=== PATIENT | female | born 1935 | race Caucasian/White ===

== ENCOUNTER 2016-07-23 20:37 | Emergency (ER) | payer MEDICARE, OTHER | END 2016-07-23 21:37 | disposition home or self-care (01) | DX: I10 Essential (primary) hypertension (principal); K21.9 Gastro-esophageal reflux disease without esophagitis; M19.90 Unspecified osteoarthritis, unspecified site; H54.7 Unspecified visual loss; Z79.82 Long term (current) use of aspirin; Z79.899 Other long term (current) drug therapy ==

== ENCOUNTER 2019-06-09 15:47 | Outpatient (CLI) | payer MEDICARE, OTHER | END 2019-06-09 15:48 | disposition short-term general hospital (02) | LOC: EMS 15:47 | PROVIDERS: ATTEND Surgery | DX: M54.5 Low back pain (principal); R10.30 Lower abdominal pain, unspecified; R20.0 Anesthesia of skin; W19.XXXA Unspecified fall, initial encounter; Y92.039 Unspecified place in apartment as the place of occurrence of the external cause | CPT/HCPCS: A0425; A0429; A0888 ==

== ENCOUNTER 2019-07-04 13:34 | Outpatient (CLI) | payer MEDICARE, OTHER ==
--- NOTE | 2019-07-04 19:01 | MRI Report ---
Reason: LOW BACK PAIN, RT HIP PAIN Procedure Date: 07/04/2019 Accession Number: [id number] / [id number] Procedure: MRI - Hip RT W/O CPT Code: Final Report FULL RESULT: EXAM: RIGHT HIP MRI WITHOUT CONTRAST EXAM DATE: 07/04/2019 04:26 PM. CLINICAL HISTORY: Low back pain. Right hip pain. COMPARISON: None. TECHNIQUE: Multiplanar, multisequence T1-weighted and fluid-sensitive, small xntqq-lw-fpqz sequences of the hip and large erwsl-vf-xknf sequences of the pelvis without contrast. Other: None. FINDINGS: Bones: Prominent periarticular cyst formation and reactive marrow edema surrounds the right hip joint. Right Hip: No acetabular retroversion. Lpmi-xf-cntv articulation is demonstrated in the right hip joint. There is severe cartilage loss. A mild right hip effusion is present. Evaluation of the labrum is limited by the large elhxk-tz-rdtq and large slice thickness used on this examination. The ligamentum teres is intact. Other Joints: The visualized lumbar spine, sacroiliac joints, symphysis pubis, and contralateral hip are unremarkable. Musculature: Moderate edema is demonstrated in the bilateral medial abductor muscles. The gluteus medius and minimus tendons are normal. The visualized hamstring tendons are normal. The ischiofemoral space is normal. Pelvic Cavity: The visualized viscera are unremarkable. No lymphadenopathy. No free fluid in the pelvis. Other: The visualized sciatic nerves are unremarkable. No bursitis. The subcutaneous tissues are unremarkable. IMPRESSION: 1. Severe joint space narrowing, cartilage loss, and periarticular cyst formation/edema in the right hip joint. In the absence of large osteophytes, an inflammatory arthropathy is favored as the cause. Subtle avascular necrosis at the right femoral head cannot be excluded. 2. Edema in the bilateral medial abductor muscles could be grade 1 strain or delayed onset muscle soreness. RADIA
--- NOTE | 2019-07-04 19:52 | MRI Report ---
Reason: LOW BACK PAIN, RT HIP PAIN Procedure Date: 07/04/2019 Accession Number: [id number] / [id number] Procedure: MRI - Lumbar Spine W/O CPT Code: Final Report FULL RESULT: EXAM: MRI LUMBAR SPINE WITHOUT CONTRAST EXAM DATE: 07/04/2019 05:06 PM. CLINICAL HISTORY: LOW BACK PAIN, RT HIP PAIN. COMPARISON: None. TECHNIQUE: Multiplanar, multisequence T1-weighted and fluid-sensitive sequences of the lumbar spine from T12 to S1 without contrast. Other: None. FINDINGS: Spinal Canal: The conus terminates at L1. The conus medullaris and cauda equina are unremarkable. Alignment: Straightening of the lumbar spine. Bone Marrow: Five nag-bdu-ltinxqa lumbar vertebral bodies are assumed. Chronic compression L3 vertebral body with a concave deformity of the inferior vertebral body endplate and 30% loss of central vertebral body height. Disk Levels/Facets: T12-L1: Negative for spinal canal stenosis or foraminal stenosis. L1-L2: Ligamentum flavum thickening. Posterior element hypertrophy. Preservation of disk height. Mild facet joint arthrosis. Moderate spinal canal stenosis. Negative for foraminal stenosis. L2-L3: Moderate facet hypertrophic arthropathy. Ligamentum flavum thickening. Apophyseal joint apposition. Moderately severe spinal canal stenosis. Mild bilateral lateral recess stenosis. Mild left and moderate right foraminal stenosis from facet hypertrophy and diffuse disk bulge. L3-L4: Severe disk degeneration. Moderate facet joint arthrosis. Apophyseal joint apposition. Congenital spinal canal narrowing. Ligamentum flavum thickening. Diffuse disk bulge. Severe spinal canal stenosis. The left neural foramen is negative for stenosis. Moderate right foraminal stenosis from facet hypertrophy and foraminal mm disk protrusion. Severe bilateral lateral recess stenosis. L4-L5: Severe disk degeneration. Moderately severe spinal canal stenosis. Posterior element hypertrophy. Ligamentum flavum thickening. Apophyseal joint apposition. Congenital spinal canal narrowing. Moderate bilateral foraminal stenosis from disk degeneration and facet hypertrophy. Diffuse disk bulge. Moderate left and mild right lateral recess stenosis. L5-S1: Mild spinal canal stenosis. Moderate facet joint arthrosis. Ligamentum flavum thickening. Mild right foraminal stenosis. Mild left foraminal stenosis from disk degeneration and 2 mm foraminal protrusion osteophyte complex. Moderate left and mild right lateral recess stenosis. Mild quantity of fluid anterior disk interspace. Musculature: Low lumbar and sacral posterior paraspinal muscle atrophy with fatty replacement. Other: The partially visualized retroperitoneum is unremarkable. Focal ankylosis right sacroiliac joint (image 1 series 601). IMPRESSION: 1. Severe spinal canal stenosis, severe bilateral lateral recess stenosis and moderate right foraminal stenosis L3-L4. 2. Moderately severe spinal canal stenosis, mild bilateral lateral recess stenosis, mild left foraminal stenosis and moderate right foraminal stenosis L2-L3. 3. Moderately severe spinal canal stenosis, moderate left lateral recess stenosis, mild right lateral recess stenosis and moderate bilateral foraminal stenosis L4-L5. 4. Mild central spinal canal stenosis, moderate left lateral recess stenosis, mild right lateral recess stenosis and mild bilateral foraminal stenosis L5-S1. 5. Moderate central spinal canal stenosis L1-L2. 6. Severe disk degeneration L3-S1. 7. Chronic compression L3 vertebral body with concave deformity of the inferior vertebral body endplate and 30% loss of central vertebral body height. Comment: The following findings are so common in adults without low back pain that while we report their presence, they must be interpreted with caution and in the context of the clinical situation. (Reference Ebonyk et al, Spine 2001) Prevalence of findings in patients without low back pain: Disk degeneration (any evidence): 92% Disk desiccation/T2 signal loss: 83% Disk height loss: 56% Disk bulge: 64% Disk protrusion: 32% Annular tear/high intensity zone: 38% RADIA
== END 2019-07-04 13:35 | disposition home or self-care (01) ==
LOC: DI 13:34
PROVIDERS: ATTEND Family Medicine
DX: M25.851 Other specified joint disorders, right hip (principal); R60.0 Localized edema; M25.451 Effusion, right hip; M47.816 Spondylosis without myelopathy or radiculopathy, lumbar region; M47.817 Spondylosis without myelopathy or radiculopathy, lumbosacral region; M51.36 Other intervertebral disc degeneration, lumbar region; M48.061 Spinal stenosis, lumbar region without neurogenic claudication; M51.37 Other intervertebral disc degeneration, lumbosacral region; M48.07 Spinal stenosis, lumbosacral region; M43.8X6 Other specified deforming dorsopathies, lumbar region
CPT/HCPCS: 72148

== ENCOUNTER 2019-07-08 15:03 | Outpatient (CLI) | payer MEDICARE, OTHER | END 2019-07-08 15:04 | disposition critical access hospital (66) | LOC: EMS 15:03 | PROVIDERS: ATTEND Surgery | DX: R53.1 Weakness (principal); R39.89 Other symptoms and signs involving the genitourinary system | CPT/HCPCS: A0425; A0427 ==

== ENCOUNTER 2019-07-24 15:00 | Outpatient (CLI) | payer MEDICARE, OTHER ==
[2019-07-24 18:51] LABS: BASOPHILS % (AUTO) 0.4 %; EOSINOPHILS % (AUTO) 0.5 %; HGB - HEMOGLOBIN 10.4 g/dL (12.0-16.0); LYMPHOCYTES # (AUTO) 1.6 10^3/uL (1.5-3.5); LYMPHOCYTES % (AUTO) 21.4 %; MEAN CORPUSCULAR HEMOGLOBIN 26.4 pg (27.0-31.0); MEAN CORPUSCULAR HGB CONC 29.1 g/dL (32.0-36.0); MEAN CORPUSCULAR VOLUME 90.9 fL (81.0-99.0); MEAN PLATELET VOLUME 8.7 fL (7.9-10.8); MONOCYTES # (AUTO) 0.6 10^3/uL (0.0-1.0); MONOCYTES % (AUTO) 8.3 %; NEUTROPHILS # (AUTO) 5.2 10^3/uL (1.5-6.6); NEUTROPHILS % (AUTO) 68.5 %; PLT - PLATELET COUNT 316 10^3/uL (130-450); RED BLOOD COUNT 3.94 10^6/uL (4.20-5.40); RED CELL DISTRIBUTION WIDTH 17.6 % (12.0-15.0); WHITE BLOOD COUNT 7.6 x10^3/uL (4.8-10.8)
[2019-07-24 19:02] LABS: ALBUMIN 3.1 g/dL (3.2-5.5); ALBUMIN/GLOBULIN RATIO 0.9 (1.0-2.2); BILIRUBIN,TOTAL 0.8 mg/dL (0.2-1.0); CREATININE 0.8 mg/dL (0.4-1.0); TOTAL PROTEIN 6.7 g/dL (6.7-8.2)
== END 2019-07-24 23:59 | disposition home or self-care (01) ==
LOC: LAB.R 15:00
DX: Z01.812 Encounter for preprocedural laboratory examination (principal); E78.5 Hyperlipidemia, unspecified
CPT/HCPCS: 80053; 85025

== ENCOUNTER 2019-07-30 08:00 | Outpatient (CLI) | payer MEDICARE, OTHER ==
[2019-07-30 20:46] LABS: BASOPHILS % (AUTO) 0.8 %; EOSINOPHILS # (AUTO) 0.1 10^3/uL (0.0-0.7); EOSINOPHILS % (AUTO) 1.7 %; HGB - HEMOGLOBIN 10.3 g/dL (12.0-16.0); LYMPHOCYTES # (AUTO) 1.4 10^3/uL (1.5-3.5); MEAN CORPUSCULAR HEMOGLOBIN 27.5 pg (27.0-31.0); MEAN CORPUSCULAR HGB CONC 30.3 g/dL (32.0-36.0); MEAN CORPUSCULAR VOLUME 90.9 fL (81.0-99.0); MONOCYTES # (AUTO) 0.5 10^3/uL (0.0-1.0); MONOCYTES % (AUTO) 10.8 %; NEUTROPHILS # (AUTO) 2.7 10^3/uL (1.5-6.6); NEUTROPHILS % (AUTO) 56.3 %; PLT - PLATELET COUNT 197 10^3/uL (130-450); RED BLOOD COUNT 3.74 10^6/uL (4.20-5.40); WHITE BLOOD COUNT 4.8 x10^3/uL (4.8-10.8)
[2019-07-30 20:50] LABS: CALCIUM 8.6 mg/dL (8.5-10.3); CREATININE 0.5 mg/dL (0.4-1.0)
== END 2019-07-30 23:59 | disposition home or self-care (01) ==
LOC: LAB.R 08:00
DX: I10 Essential (primary) hypertension (principal); J18.9 Pneumonia, unspecified organism
CPT/HCPCS: 80048; 85025

== ENCOUNTER 2019-08-01 15:09 | Outpatient (CLI) | payer MEDICARE, OTHER | END 2019-08-01 15:10 | disposition home or self-care (01) | LOC: RT 15:09 | PROVIDERS: ATTEND Orthopaedic Surgery Orthopaedic Surgery of the Spine | DX: Z01.810 Encounter for preprocedural cardiovascular examination (principal) | CPT/HCPCS: 93005 ==

== ENCOUNTER 2019-08-25 20:15 | Outpatient (CLI) | payer MEDICARE, OTHER ==
[2019-08-25 22:48] LABS: BILIRUBIN,URINE NEGATIVE (NEGATIVE); GLUCOSE, URINE (UA) NEGATIVE (NEGATIVE); KETONES,URINE (UA) NEGATIVE (NEGATIVE); LEUKOCYTE ESTERASE, URINE LARGE (NEGATIVE); NITRITE,URINE POSITIVE (NEGATIVE); OCCULT BLOOD,URINE SMALL (NEGATIVE); PH,URINE 6.5 PH (5.0-7.5); PROTEIN,URINE NEGATIVE (NEGATIVE); UROBILINOGEN,URINE 0.2 (NORMAL) E.U./dL (NORMAL)
[2019-08-25 22:49] LABS: CLARITY,URINE HAZY (CLEAR)
[2019-08-25 22:58] LABS: RBC,URINE 0-5 /HPF (0-5)
[2019-08-25 22:59] LABS: BACTERIA,URINE Moderate /HPF (None Seen); SQUAMOUS EPITHELIAL CELL,UR FEW Squamous (<= Few)
== END 2019-08-25 23:59 | disposition home or self-care (01) ==
LOC: LAB.R 20:15
DX: N39.0 Urinary tract infection, site not specified (principal)
CPT/HCPCS: 81001; 81003; 87077; 87086; 87181

== ENCOUNTER 2019-09-12 06:00 | Outpatient (CLI) | payer MEDICARE, OTHER ==
[2019-09-12 06:57] LABS: BASOPHILS % (AUTO) 0.5 %; EOSINOPHILS % (AUTO) 0.3 %; HGB - HEMOGLOBIN 10.1 g/dL (12.0-16.0); LYMPHOCYTES # (AUTO) 1.2 10^3/uL (1.5-3.5); LYMPHOCYTES % (AUTO) 19.2 %; MEAN CORPUSCULAR HEMOGLOBIN 24.2 pg (27.0-31.0); MEAN CORPUSCULAR HGB CONC 29.4 g/dL (32.0-36.0); MEAN CORPUSCULAR VOLUME 82.5 fL (81.0-99.0); MEAN PLATELET VOLUME 9.2 fL (7.9-10.8); MONOCYTES % (AUTO) 16.4 %; NEUTROPHILS # (AUTO) 3.8 10^3/uL (1.5-6.6); NEUTROPHILS % (AUTO) 63.1 %; PLT - PLATELET COUNT 222 10^3/uL (130-450); RED BLOOD COUNT 4.17 10^6/uL (4.20-5.40); RED CELL DISTRIBUTION WIDTH 16.5 % (12.0-15.0); WHITE BLOOD COUNT 6.1 x10^3/uL (4.8-10.8)
[2019-09-12 07:11] LABS: CALCIUM 9.2 mg/dL (8.5-10.3); CREATININE 0.6 mg/dL (0.4-1.0)
== END 2019-09-12 23:59 | disposition home or self-care (01) ==
LOC: LAB.R 06:00
DX: I10 Essential (primary) hypertension (principal); D64.9 Anemia, unspecified
CPT/HCPCS: 80048; 85025

== ENCOUNTER 2019-09-12 20:18 | Outpatient (CLI) | payer MEDICARE, OTHER | END 2019-09-12 23:59 | disposition critical access hospital (66) | LOC: EMS 20:18 | PROVIDERS: ATTEND Surgery | DX: R05 Cough (principal); R50.9 Fever, unspecified | CPT/HCPCS: A0425; A0429 ==

== ENCOUNTER 2019-09-12 20:43 | Emergency (ER) | payer MEDICARE, OTHER ==
--- NOTE | 2019-09-12 21:22 | ED Physician Documentation ---
History of Present Illness - Stated complaint Stated Complaint: FEVER/INCISION PAIN - Chief complaint Chief Complaint: General - History obtained from History obtained from: Patient, Caregiver (notes from [facility]) - History of Present Illness Timing: Today Pain level now: 0 - Additonal information Additional information: sent from [facility] for "cough, fever, possible infection to surgical incision on back", "had emesis, shakiness, temp., cough/dry, need a UA done" (per transfer forms). Patient tells me she had coughing earlier this evening and one episode of emesis due to the coughing. she says she was not, and is not, nauseas and feels that the emesis was due to coughing. She has no c/o on my HPI. Review of Systems Constitutional: reports: Fever (reportedly had fever; per medic report and information on transfer form, temp was 99.6.). denies: Myalgias Respiratory: reports: Cough. denies: Dyspnea GI: reports: Vomiting. denies: Abdominal Pain, Nausea, Constipation, Diarrhea PD PAST MEDICAL HISTORY - Past Medical History Cardiovascular: Hypertension, High cholesterol, Angina Respiratory: Pneumonia Endocrine/Autoimmune: None GI: GERD : None HEENT: Chronic vision loss Psych: None Musculoskeletal: Osteoarthritis Derm: Other Other Past Medical History: acute resp failure; spinal stenosis; DVT, PE, ESBL; weakness - Past Surgical History Past Surgical History: Yes General: Cholecystectomy Ortho: Spine surgery /CHAIR: Tubal ligation, Hysterectomy - Present Medications Home Medications: Ambulatory Orders Medication Instructions Recorded Confirmed Acetaminophen 500 mg Q8HR PRN 09/12/19 09/12/19 Amox/Clav 875/125 [Augmentin] 1 each PO Q12H #14 tablet 09/12/19 Apixaban [Eliquis] 5 mg BID 09/12/19 09/12/19 Baclofen 0.5 tab BID PRN 09/12/19 09/12/19 Famotidine 20 mg BID 09/12/19 09/12/19 Ipratropium/Albuterol [Duoneb] 3 ml Q6HR PRN 09/12/19 09/12/19 Lidocaine [Lidocaine Pain Relief] 1 patch DAILY 09/12/19 09/12/19 Losartan Potassium 25 mg DAILY 09/12/19 09/12/19 Ondansetron HCl [Zofran] 4 mg Q6HR PRN 09/12/19 09/12/19 Simvastatin [Zocor] 40 mg DAILY 09/12/19 09/12/19 traMADol [Ultram] 50 mg Q6HR PRN 09/12/19 09/12/19 - Allergies Allergies/Adverse Reactions: Allergies Allergy/AdvReac Type Severity Reaction Status Date / Time fexofenadine Allergy Unknown Verified 09/12/19 22:43 - Social History Does the pt smoke?: No Smoking Status: Never smoker Does the pt drink ETOH?: No - Immunizations Immunizations are current?: Yes - POLST Patient has POLST: No PD ED PE NORMAL - Vitals Vital signs reviewed: Yes - General General: Alert and oriented X 3, No acute distress, Well developed/nourished - HEENT HEENT: Moist mucous membranes - Cardiac Cardiac: RRR - Respiratory Respiratory: No respiratory distress, Clear bilaterally - Abdomen Abdomen: Soft, Non tender - Back Back: Other (midline incision (surgical) site is c/d/i without evidence of dehiscence. no fluctuance, no erythema, no discharge) - Derm Derm: Normal color, Warm and dry, No rash - Extremities Extremities: No edema Results - Vitals Vitals: Vital Signs - 24 hr 09/12/19 09/12/19 09/12/19 20:45 21:35 23:04 Temperature 36.9 C Heart Rate 79 67 66 Respiratory 18 16 16 Rate Blood Pressure 131/67 H 128/62 128/57 L O2 Saturation 88 L 100 100 Oxygen O2 Source Nasal cannula Oxygen Flow Rate 2 - Labs Labs: Laboratory Tests 09/12/19 22:15 Urine Color YELLOW Urine Clarity TURBID Urine pH 5.5 Ur Specific [place] >=1.030 H Urine Protein 30 H Urine Glucose (UA) NEGATIVE Urine Ketones NEGATIVE Urine Occult Blood LARGE H Urine Nitrite POSITIVE H Urine Bilirubin NEGATIVE Urine Urobilinogen 0.2 (NORMAL) Ur Leukocyte Esterase MODERATE H Urine RBC 6-10 H Urine WBC >25 H Urine WBC Clumps PRESENT Ur Squamous Epith Cells NONE SEEN Urine Bacteria Many H Ur Microscopic Review INDICATED Urine Culture Comments INDICATED - Rads (name of study) chest xray Radiology: Prelim report reviewed, See rad report PD MEDICAL DECISION MAKING - ED course Complexity details: reviewed old records, reviewed results, re-evaluated patient, considered differential, d/w patient ED course: patient had blood tests performed earlier today (09/12/2019, including CBC and BMP with reassuring results). pulse ox 88% on room air but she has PRN order for oxygen at [facility] and with 2 L/min, her pulse ox corrects to 98%. She is in no respiratory distress in ED. CXR interpreted by radiologist as "new mild left mid and lower lung airspace disease. Could represent pneumonia". Additionally, UA c/w UTI. given dose of augmentin and rx for same. Departure - Departure Disposition: Home, Self Care Clinical Impression: Pneumonia Qualifiers: Pneumonia type: due to unspecified organism Laterality: left Lung location: unspecified part of lung Qualified Code(s): J18.9 - Pneumonia, unspecified organism UTI (urinary tract infection) Qualifiers: Urinary tract infection type: acute cystitis Hematuria presence: with hematuria Qualified Code(s): N30.01 - Acute cystitis with hematuria Condition: Good Instructions: ED Pneumonia Adult, ED UTI Cystitis Female Follow-Up: Angelica Strauss MD [Primary Care Provider] - Prescriptions: Amox/Clav 875/125 [Augmentin] 1 each PO Q12H #14 tablet Discharge Date/Time: 09/12/19 23:56
[2019-09-12 22:23] LABS: BILIRUBIN,URINE NEGATIVE (NEGATIVE); CLARITY,URINE TURBID (CLEAR); GLUCOSE, URINE (UA) NEGATIVE (NEGATIVE); KETONES,URINE (UA) NEGATIVE (NEGATIVE); LEUKOCYTE ESTERASE, URINE MODERATE (NEGATIVE); NITRITE,URINE POSITIVE (NEGATIVE); OCCULT BLOOD,URINE LARGE (NEGATIVE); PH,URINE 5.5 PH (5.0-7.5); PROTEIN,URINE 30 mg/dL (NEGATIVE); UROBILINOGEN,URINE 0.2 (NORMAL) E.U./dL (NORMAL)
[2019-09-12 22:24] LABS: WBC CLUMPS,URINE PRESENT
[2019-09-12 22:25] LABS: BACTERIA,URINE Many /HPF (None Seen); SQUAMOUS EPITHELIAL CELL,UR NONE SEEN (<= Few)
--- NOTE | 2019-09-12 22:34 | XRAY Report ---
Reason: cough Procedure Date: 09/12/2019 Accession Number: [id number] / [id number] Procedure: XR - Chest 1 View X-Ray CPT Code: 04730 Final Report FULL RESULT: EXAM: CHEST RADIOGRAPHY EXAM DATE: 09/12/2019 10:05 PM. CLINICAL HISTORY: Cough. COMPARISON: CHEST 2 VIEW 07/08/2019 4:05 PM. TECHNIQUE: 1 view. FINDINGS: Lungs/Pleura: New mild left mid and lower lung airspace disease, could represent pneumonia. No pleural effusion or pneumothorax. Mediastinum: Within exam limitations, the cardiomediastinal contour is normal. IMPRESSION: New mild left mid and lower lung airspace disease, could represent pneumonia. RADIA
[2019-09-12] MEDS ORDERED: AMOX/CLAV 875 MG/125 MG TABLET PO STA (22:37)
[2019-09-12 23:05] VITALS: BP 128/57
== END 2019-09-12 23:56 | disposition home or self-care (01) ==
LOC: EDBD → EDUNIT# → ED 20:43
DX: J18.9 Pneumonia, unspecified organism (principal); N30.01 Acute cystitis with hematuria; I10 Essential (primary) hypertension
CPT/HCPCS: 71045; 81001; 87086; 87181; 99284; A9270; 81003

== ENCOUNTER 2019-09-13 00:18 | Outpatient (CLI) | payer MEDICARE, OTHER | END 2019-09-13 00:19 | LOC: EMS 00:18 | PROVIDERS: ATTEND Surgery | DX: Z98.890 Other specified postprocedural states (principal); Z74.01 Bed confinement status | CPT/HCPCS: A0425; A0429 ==

== ENCOUNTER 2019-10-11 15:30 | Outpatient (CLI) | payer MEDICARE, OTHER ==
[2019-10-11 15:50] LABS: BASOPHILS % (AUTO) 0.4 %; EOSINOPHILS # (AUTO) 0.1 10^3/uL (0.0-0.7); EOSINOPHILS % (AUTO) 1.4 %; HGB - HEMOGLOBIN 9.1 g/dL (12.0-16.0); LYMPHOCYTES % (AUTO) 41.3 %; MEAN CORPUSCULAR HEMOGLOBIN 23.2 pg (27.0-31.0); MEAN CORPUSCULAR HGB CONC 29.8 g/dL (32.0-36.0); MEAN CORPUSCULAR VOLUME 77.8 fL (81.0-99.0); MEAN PLATELET VOLUME 9.4 fL (7.9-10.8); MONOCYTES # (AUTO) 0.5 10^3/uL (0.0-1.0); MONOCYTES % (AUTO) 9.8 %; NEUTROPHILS # (AUTO) 2.3 10^3/uL (1.5-6.6); NEUTROPHILS % (AUTO) 46.9 %; PLT - PLATELET COUNT 221 10^3/uL (130-450); RED BLOOD COUNT 3.92 10^6/uL (4.20-5.40); RED CELL DISTRIBUTION WIDTH 16.7 % (12.0-15.0); WHITE BLOOD COUNT 4.9 x10^3/uL (4.8-10.8)
[2019-10-11 15:59] LABS: CALCIUM 8.7 mg/dL (8.5-10.3); CREATININE 0.5 mg/dL (0.4-1.0)
== END 2019-10-11 23:59 | disposition home or self-care (01) ==
LOC: LAB.R 15:30
PROVIDERS: ATTEND Family Medicine
DX: M62.81 Muscle weakness (generalized) (principal)
CPT/HCPCS: 80048; 85025

== ENCOUNTER 2019-11-20 16:45 | Outpatient (CLI) | payer MEDICARE, OTHER ==
[2019-11-20 17:24] LABS: BASOPHILS % (AUTO) 0.4 %; EOSINOPHILS # (AUTO) 0.1 10^3/uL (0.0-0.7); EOSINOPHILS % (AUTO) 1.7 %; HGB - HEMOGLOBIN 13.2 g/dL (12.0-16.0); LYMPHOCYTES % (AUTO) 21.6 %; MEAN CORPUSCULAR HEMOGLOBIN 24.6 pg (27.0-31.0); MEAN CORPUSCULAR HGB CONC 29.9 g/dL (32.0-36.0); MEAN CORPUSCULAR VOLUME 82.5 fL (81.0-99.0); MEAN PLATELET VOLUME 9.9 fL (7.9-10.8); MONOCYTES # (AUTO) 0.2 10^3/uL (0.0-1.0); MONOCYTES % (AUTO) 3.6 %; NEUTROPHILS # (AUTO) 3.4 10^3/uL (1.5-6.6); NEUTROPHILS % (AUTO) 72.3 %; PLT - PLATELET COUNT 241 10^3/uL (130-450); RED BLOOD COUNT 5.36 10^6/uL (4.20-5.40); RED CELL DISTRIBUTION WIDTH 22.4 % (12.0-15.0); WHITE BLOOD COUNT 4.7 x10^3/uL (4.8-10.8)
[2019-11-20 17:26] LABS: CALCIUM 9.9 mg/dL (8.5-10.3); CREATININE 0.6 mg/dL (0.4-1.0)
[2019-11-20 17:31] LABS: PLATELET ESTIMATE, MANUAL NORMAL (130-450,000) (NORMAL); PLATELET MORPHOLOGY NORMAL APPEARANCE (NORMAL)
== END 2019-11-20 23:59 | disposition home or self-care (01) ==
LOC: LAB.R 16:45
PROVIDERS: ATTEND Internal Medicine
DX: E78.5 Hyperlipidemia, unspecified (principal); Z91.81 History of falling
CPT/HCPCS: 80048; 85025

== ENCOUNTER 2019-11-28 08:00 | Outpatient (CLI) | payer MEDICARE, OTHER ==
[2019-11-28 17:59] LABS: BASOPHILS % (AUTO) 0.4 %; EOSINOPHILS # (AUTO) 0.1 10^3/uL (0.0-0.7); EOSINOPHILS % (AUTO) 1.8 %; HGB - HEMOGLOBIN 11.8 g/dL (12.0-16.0); LYMPHOCYTES # (AUTO) 1.7 10^3/uL (1.5-3.5); LYMPHOCYTES % (AUTO) 30.6 %; MEAN CORPUSCULAR HEMOGLOBIN 24.3 pg (27.0-31.0); MEAN CORPUSCULAR HGB CONC 29.3 g/dL (32.0-36.0); MEAN CORPUSCULAR VOLUME 83.1 fL (81.0-99.0); MEAN PLATELET VOLUME 10.4 fL (7.9-10.8); MONOCYTES # (AUTO) 0.7 10^3/uL (0.0-1.0); MONOCYTES % (AUTO) 12.3 %; NEUTROPHILS % (AUTO) 54.7 %; PLT - PLATELET COUNT 249 10^3/uL (130-450); RED BLOOD COUNT 4.85 10^6/uL (4.20-5.40); RED CELL DISTRIBUTION WIDTH 21.7 % (12.0-15.0); WHITE BLOOD COUNT 5.4 x10^3/uL (4.8-10.8)
[2019-11-28 18:02] LABS: ALBUMIN 3.4 g/dL (3.2-5.5); BILIRUBIN,TOTAL 0.4 mg/dL (0.2-1.0); CALCIUM 9.1 mg/dL (8.5-10.3); CREATININE 0.5 mg/dL (0.4-1.0); TOTAL PROTEIN 6.8 g/dL (6.7-8.2)
[2019-11-28 18:34] LABS: PLATELET ESTIMATE, MANUAL NORMAL (130-450,000) (NORMAL); PLATELET MORPHOLOGY NORMAL APPEARANCE (NORMAL); RBC MORPHOLOGY (MULTIPLE) 1+ ANISOCYTOSIS (NORMAL)
== END 2019-11-28 23:59 | disposition home or self-care (01) ==
LOC: LAB.R 08:00
PROVIDERS: ATTEND Family Medicine
DX: I10 Essential (primary) hypertension (principal); R79.89 Other specified abnormal findings of blood chemistry; R11.2 Nausea with vomiting, unspecified; I20.9 Angina pectoris, unspecified; R70.0 Elevated erythrocyte sedimentation rate
CPT/HCPCS: 80053; 85025; 85651

== ENCOUNTER 2019-11-30 17:30 | Outpatient (CLI) | payer MEDICARE, OTHER ==
[2019-11-30 18:48] LABS: BILIRUBIN,URINE NEGATIVE (NEGATIVE); GLUCOSE, URINE (UA) NEGATIVE (NEGATIVE); KETONES,URINE (UA) NEGATIVE (NEGATIVE); LEUKOCYTE ESTERASE, URINE NEGATIVE (NEGATIVE); NITRITE,URINE NEGATIVE (NEGATIVE); OCCULT BLOOD,URINE NEGATIVE (NEGATIVE); PROTEIN,URINE NEGATIVE (NEGATIVE); UROBILINOGEN,URINE 0.2 (NORMAL) E.U./dL (NORMAL)
[2019-11-30 18:49] LABS: CLARITY,URINE CLEAR (CLEAR)
== END 2019-11-30 23:59 | disposition home or self-care (01) ==
LOC: LAB.R 17:30
PROVIDERS: ATTEND Family Medicine
DX: E53.8 Deficiency of other specified B group vitamins (principal); R30.0 Dysuria
CPT/HCPCS: 81001; 81003; 82607; 83921; 87086

== ENCOUNTER 2019-12-07 13:40 | Outpatient (CLI) | payer MEDICARE, OTHER ==
[2019-12-07 15:05] LABS: BASOPHILS % (AUTO) 0.5 %; EOSINOPHILS # (AUTO) 0.1 10^3/uL (0.0-0.7); EOSINOPHILS % (AUTO) 1.4 %; HGB - HEMOGLOBIN 12.1 g/dL (12.0-16.0); LYMPHOCYTES # (AUTO) 1.7 10^3/uL (1.5-3.5); LYMPHOCYTES % (AUTO) 29.3 %; MEAN CORPUSCULAR HEMOGLOBIN 25.4 pg (27.0-31.0); MEAN CORPUSCULAR HGB CONC 30.3 g/dL (32.0-36.0); MEAN CORPUSCULAR VOLUME 83.6 fL (81.0-99.0); MEAN PLATELET VOLUME 10.1 fL (7.9-10.8); MONOCYTES # (AUTO) 0.7 10^3/uL (0.0-1.0); MONOCYTES % (AUTO) 11.4 %; NEUTROPHILS # (AUTO) 3.3 10^3/uL (1.5-6.6); NEUTROPHILS % (AUTO) 57.2 %; PLT - PLATELET COUNT 263 10^3/uL (130-450); RED BLOOD COUNT 4.77 10^6/uL (4.20-5.40); RED CELL DISTRIBUTION WIDTH 21.1 % (12.0-15.0); WHITE BLOOD COUNT 5.7 x10^3/uL (4.8-10.8)
[2019-12-07 16:35] LABS: PLATELET ESTIMATE, MANUAL NORMAL (130-450,000) (NORMAL); PLATELET MORPHOLOGY NORMAL APPEARANCE (NORMAL); RBC MORPHOLOGY (MULTIPLE) 2+ ANISOCYTOSIS (NORMAL)
== END 2019-12-07 23:59 | disposition home or self-care (01) ==
LOC: LAB.R 13:40
PROVIDERS: ATTEND Family Medicine
DX: R53.1 Weakness (principal); E78.5 Hyperlipidemia, unspecified
CPT/HCPCS: 82728; 85025

== ENCOUNTER 2020-01-02 12:30 | Outpatient (CLI) | payer MEDICARE, OTHER | END 2020-01-02 12:31 | disposition critical access hospital (66) | LOC: EMS 12:30 | PROVIDERS: ATTEND Surgery | DX: R53.1 Weakness (principal); R41.0 Disorientation, unspecified; R19.5 Other fecal abnormalities | CPT/HCPCS: A0425; A0429 ==

== ENCOUNTER 2020-01-02 12:39 | Inpatient (IN) | payer MEDICARE, OTHER ==
[2020-01-02] MEDS ORDERED: SODIUM CHLORIDE 0.9% 1,000 ML IV STA ×3 (13:02→14:27)
[2020-01-02 13:10] LABS: BASOPHILS # (AUTO) 0.1 10^3/uL (0.0-0.1); BASOPHILS % (AUTO) 0.4 %; EOSINOPHILS # (AUTO) 0.1 10^3/uL (0.0-0.7); EOSINOPHILS % (AUTO) 0.7 %; HGB - HEMOGLOBIN 9.8 g/dL (12.0-16.0); LYMPHOCYTES % (AUTO) 13.6 %; MEAN CORPUSCULAR HEMOGLOBIN 25.2 pg (27.0-31.0); MEAN CORPUSCULAR HGB CONC 32.1 g/dL (32.0-36.0); MEAN CORPUSCULAR VOLUME 78.4 fL (81.0-99.0); MEAN PLATELET VOLUME 10.3 fL (7.9-10.8); MONOCYTES # (AUTO) 1.5 10^3/uL (0.0-1.0); MONOCYTES % (AUTO) 10.6 %; NEUTROPHILS # (AUTO) 10.6 10^3/uL (1.5-6.6); NEUTROPHILS % (AUTO) 73.9 %; PLT - PLATELET COUNT 256 10^3/uL (130-450); RED BLOOD COUNT 3.89 10^6/uL (4.20-5.40); RED CELL DISTRIBUTION WIDTH 20.3 % (12.0-15.0); WHITE BLOOD COUNT 14.4 x10^3/uL (4.8-10.8)
--- NOTE | 2020-01-02 13:14 | ED Physician Documentation ---
History of Present Illness - Stated complaint Stated Complaint: BLOOD IN STOOL - Chief complaint Chief Complaint: Cardiac - History obtained from History obtained from: Patient, EMS - History of Present Illness Timing: How many days ago (3) Pain level max: 0 Pain level now: 0 - Additonal information Additional information: 84-year-old female presents to the emergency department with blood in her stool for the past 3 days. She lives at [facility]. Nothing makes it better or worse. 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 Currently has no leg pain and/or swelling. They recently decreased her Eliquis from 5 mg daily to 2.5 mg daily. No history of blood in the stool before. She is unable to say whether it is bright or dark. She has mild confusion as well. Unknown last colonoscopy Review of Systems Ten Systems: 10 systems reviewed and negative Constitutional: denies: Fever, Chills Nose: denies: Rhinorrhea / runny nose, Congestion GI: reports: Abdominal Pain (pain in lower abd). denies: Vomiting, Diarrhea : denies: Dysuria Skin: denies: Rash Musculoskeletal: denies: Neck pain, Back pain Neurologic: reports: Confused (intermittent,). 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, Hysterectomy - Present Medications Home Medications: Ambulatory Orders Medication Instructions Recorded Confirmed Acetaminophen 500 mg Q8HR PRN 09/12/19 09/12/19 Amox/Clav 875/125 [Augmentin] 1 each PO Q12H #14 tablet 09/12/19 Apixaban [Eliquis] 5 mg BID 09/12/19 09/12/19 Baclofen 0.5 tab BID PRN 09/12/19 09/12/19 Famotidine 20 mg BID 09/12/19 09/12/19 Ipratropium/Albuterol [Duoneb] 3 ml Q6HR PRN 09/12/19 09/12/19 Lidocaine [Lidocaine Pain Relief] 1 patch DAILY 09/12/19 09/12/19 Losartan Potassium 25 mg DAILY 09/12/19 09/12/19 Ondansetron HCl [Zofran] 4 mg Q6HR PRN 09/12/19 09/12/19 Simvastatin [Zocor] 40 mg DAILY 09/12/19 09/12/19 traMADol [Ultram] 50 mg Q6HR PRN 09/12/19 09/12/19 - Allergies Allergies/Adverse Reactions: Allergies Allergy/AdvReac Type Severity Reaction Status Date / Time fexofenadine Allergy Unknown Verified 01/02/20 13:35 - Social History Does the pt smoke?: No Smoking Status: Never smoker Does the pt drink ETOH?: No - Immunizations Immunizations are current?: Yes - POLST Patient has POLST: No PD ED PE NORMAL - Vitals Vital signs reviewed: Yes - General General: Alert and oriented X 3, No acute distress - HEENT HEENT: Atraumatic, PERRL, Moist mucous membranes - Neck Neck: Supple, no meningeal sign, No bony TTP - Cardiac Cardiac: RRR, Strong equal pulses - Respiratory Respiratory: No respiratory distress, Clear bilaterally - Abdomen Abdomen: Soft, Non distended, Other (mild LLQ TTP.) - Derm Derm: Warm and dry - Extremities Extremities: No deformity - Neuro Neuro: Alert and oriented X 3 - Psych Psych: Normal mood, Normal affect Results - Vitals Vitals: Vital Signs - 24 hr 01/02/20 01/02/20 01/02/20 12:45 12:46 13:26 Temperature 36.7 C Heart Rate 76 91 69 Respiratory 18 17 17 Rate Blood Pressure 75/55 L 92/49 L 85/63 L O2 Saturation 99 99 01/02/20 01/02/20 01/02/20 13:30 14:00 14:30 Temperature Heart Rate 71 90 73 Respiratory 18 17 16 Rate Blood Pressure 85/63 L 83/40 L 74/33 L O2 Saturation 97 100 99 01/02/20 01/02/20 14:35 15:01 Temperature Heart Rate 71 75 Respiratory 14 16 Rate Blood Pressure 74/33 L 94/50 L O2 Saturation 99 100 Oxygen O2 Source Room air - Labs Labs: Microbiology 01/02/20 13:10 Occult Blood - Final Stool Laboratory Tests 01/02/20 01/02/20 01/02/20 12:50 12:50 12:50 WBC 14.4 H RBC 3.89 L Hgb 9.8 L Hct 30.5 L MCV 78.4 L MCH 25.2 L MCHC 32.1 RDW 20.3 H Plt Count 256 MPV 10.3 Neut # (Auto) 10.6 H Lymph # (Auto) 2.0 [place] # (Auto) 1.5 H Eos # (Auto) 0.1 Baso # (Auto) 0.1 Absolute Nucleated RBC 0.00 Nucleated RBC % 0.0 Manual Slide Review Indicated Platelet Estimate NORMAL (130-450,000) Platelet Morphology NORMAL APPEARANCE RBC Morph Micro Appear KHALIL JOLLY BODIES PT 28.8 H INR 2.7 H APTT 40.3 H Sodium Potassium Chloride Carbon Dioxide Anion Gap BUN Creatinine Estimated GFR (MDRD) Glucose Lactic Acid Calcium Ferritin Total Bilirubin AST ALT Alkaline Phosphatase Lactate Dehydrogenase Total Protein Albumin Globulin Albumin/Globulin Ratio Lipase Blood Type A NEGATIVE Antibody Screen NEGATIVE 01/02/20 01/02/20 01/02/20 12:50 12:50 12:50 WBC RBC Hgb Hct MCV MCH MCHC RDW Plt Count MPV Neut # (Auto) Lymph # (Auto) [place] # (Auto) Eos # (Auto) Baso # (Auto) Absolute Nucleated RBC Nucleated RBC % Manual Slide Review Platelet Estimate Platelet Morphology RBC Morph Micro Appear PT INR APTT Sodium 132 L Potassium 4.6 Chloride 101 Carbon Dioxide 20 L Anion Gap 11.0 BUN 34 H Creatinine 1.0 Estimated GFR (MDRD) 53 L Glucose 117 H Lactic Acid Calcium 9.2 Ferritin 61.7 Total Bilirubin 2.9 H AST 94 H ALT 29 Alkaline Phosphatase 504 H Lactate Dehydrogenase 186 Total Protein 5.7 L Albumin 2.4 L Globulin 3.3 Albumin/Globulin Ratio 0.7 L Lipase 39 Blood Type Antibody Screen 01/02/20 13:15 WBC RBC Hgb Hct MCV MCH MCHC RDW Plt Count MPV Neut # (Auto) Lymph # (Auto) [place] # (Auto) Eos # (Auto) Baso # (Auto) Absolute Nucleated RBC Nucleated RBC % Manual Slide Review Platelet Estimate Platelet Morphology RBC Morph Micro Appear PT INR APTT Sodium Potassium Chloride Carbon Dioxide Anion Gap BUN Creatinine Estimated GFR (MDRD) Glucose Lactic Acid 1.8 Calcium Ferritin Total Bilirubin AST ALT Alkaline Phosphatase Lactate Dehydrogenase Total Protein Albumin Globulin Albumin/Globulin Ratio Lipase Blood Type Antibody Screen - Rads (name of study) CT abd/pelvis Radiology: Prelim report reviewed, EMP read contemporaneously, See rad report PD MEDICAL DECISION MAKING - ED course Complexity details: reviewed results, re-evaluated patient, considered differential, d/w patient, d/w 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 Hemoglobin is dropped from 12 down to 9. She is on Eliquis. Appears to have diverticulitis on CT scan. Started on Zosyn. Discussed the case with Dr. Mota, surgeon who will consult. Also discussed with Dr. Zamarripa, hospitalist who accepts. This document was made in part using voice recognition software. While efforts are made to proofread this document, sound alike and grammatical errors may occur. Initial hypotension improved with IV fluids Departure - Departure Disposition: 66 [facility] DC/Xfer Clinical Impression: Diverticulitis GI bleed Qualifiers: GI bleed type/associated pathology: unspecified gastrointestinal hemorrhage type Qualified Code(s): K92.2 - Gastrointestinal hemorrhage, unspecified Anemia Qualifiers: Anemia type: unspecified type Qualified Code(s): D64.9 - Anemia, unspecified Condition: Stable Discharge Date/Time: 01/02/20 16:25
[2020-01-02 13:15] LABS: INR 2.7 (0.8-1.2); PT - PROTHROMBIN TIME 28.8 secs (9.9-12.6)
[2020-01-02 13:20] LABS: ALBUMIN 2.4 g/dL (3.2-5.5); ALBUMIN/GLOBULIN RATIO 0.7 (1.0-2.2); BILIRUBIN,TOTAL 2.9 mg/dL (0.2-1.0); CALCIUM 9.2 mg/dL (8.5-10.3); TOTAL PROTEIN 5.7 g/dL (6.7-8.2)
[2020-01-02 13:23] LABS: PARTIAL THROMBOPLASTIN TIME 40.3 secs (24.9-33.3)
[2020-01-02] MEDS ORDERED: IOVERSOL 320 100 ML VIAL IVP ONE ×2 (13:43→14:02)
[2020-01-02 14:37] LABS: PLATELET ESTIMATE, MANUAL NORMAL (130-450,000) (NORMAL); PLATELET MORPHOLOGY NORMAL APPEARANCE (NORMAL)
--- NOTE | 2020-01-02 14:40 | CT Report ---
PROCEDURE: Abdomen/Pelvis W INDICATIONS: Left lower quadrant abdominal pain, rectal bleeding CONTRAST: 100 cc Optiray 320 administered intravenously. No by mouth contrast ministry. TECHNIQUE: After the administration of oral and intravenous contrast, 5 mm thick sections acquired from the diap hragms to the symphysis. 5 mm thick coronal and sagittal reformats were acquired. For radiation dos e reduction, the following was used: automated exposure control, adjustment of mA and/or kV accordin g to patient size. COMPARISON: None. FINDINGS: Image quality: Excellent. ABDOMEN: Lung bases: No suspicious finding in the lung bases. There is interstitial thickening and chronic alicia earing fibrotic change along with mosaic attenuation of the lungs which may represent air trapping. Solid organs: Status post cholecystectomy. Liver and spleen are unremarkable. There is no acute pancr eatic finding. Adrenal glands are within normal limits. No hydronephrosis or other significant abnorm ality of the kidneys. Peritoneum and bowel: There is free fluid adjacent to the terminal ileum and cecum extending medially and inferiorly into the right hemipelvis posterior to the urinary bladder. The ascending colon appea rs abnormally thickened with pericolonic fat stranding and engorged vasa recta. In addition, there ar e numerous threshold enlarged mesenteric lymph nodes in the right lower quadrant draining this region of the colon. The appendix is nondilated without adjacent inflammatory changes, projecting medially on series 3 images 61-69. Nodes and vessels: The threshold enlarged retroperitoneal lymph nodes by CT size criteria. Diffusely atherosclerotic abdominal aorta without aneurysm. IVC unremarkable. PELVIS: Genitourinary: The bladder wall thickness is normal. Status post hysterectomy and presumably oophorec tomies. Miscellaneous: No threshold enlarged pelvic or inguinal lymph node. Bones: No suspicious bony lesions. No vertebral body compression fractures. Severe osteoarthritic changes of the right hip. Moderate osteophytic changes of the left hip. Extensive thoracolumbar poste rior fixation hardware status post wide laminectomies and posterior element grafting. IMPRESSION: Markedly thickened cecum and ascending colon with adjacent inflammatory changes and flui d. Findings presumably represent infectious colitis or potentially diverticulitis. There is no organi zed fluid collection or abscess. Follow-up to both clinical and radiographic resolution is recommende d to help exclude a malignancy which is an additional concern. Colonoscopy would also be recommended unless recently performed to further exclude a malignant process. Reviewed by: Dar Wells MD on 01/02/2020 2:38 PM PDT Approved by: Dar Wells MD on 01/02/2020 2:38 PM PDT Station ID: [id number]
[2020-01-02] MEDS ORDERED: PIPERACILLIN/TAZOBACTAM 3.375 GM in SODIUM CHLORIDE 0.9% MINIBAG 100 ML IV STA (14:50)
[2020-01-02] MEDS ORDERED: ZOLPIDEM 5 MG TABLET PO PRN (15:10)
[2020-01-02] MEDS ORDERED: IPRATROPIUM/ALBUTEROL 3 ML NEB INH PRN (15:19)
[2020-01-02] MEDS ORDERED: ALBUTEROL NEB 2.5 MG/3 ML INH PRN (15:19)
[2020-01-02] MEDS ORDERED: traMADol 50 MG TABLET PO PRN (15:19)
--- NOTE | 2020-01-02 15:20 | HISTORY & PHYSICAL EXAMINATION ---
Chief Complaint - Chief Complaint Chief Complaint: GI bleed History of Present Illness - History of Present Illness HPI Comment/Other: This is a 83-year-old female with a PMH significant for HTN, HLD, GERD, chronic vision loss, angia, osteoarthritis, hx of DVT/PE with eliquis, pulmonary hypertension, who present ER for bloody stool. She lives at [facility]. pt is some confusion and can only provide limited history. Pt report she has had multiple bloody stools. She report she did feel some lower abdominal discomfort. she Denies dizziness or chest pain, fever, chill or shortness of breath. In routine lab test, patient had a hemoglobin 9.8 today patient has 12.1 in the previous admission about one month ago. Patient also has elevated WBC 14.4, total bili 2.9, elevated alkaline phosphatase. CAT scan of abdomen show marketed thickened cecum and ascending colon with adjacent inflammatory changes and fluid. 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 Colonoscopy is recommended further to exclude malignancy process. Surgeon was notified in the ER. Patient has a PLOST which show she is full code. History - Past Medical History Cardiovascular: reports: Hypertension, High cholesterol, Angina Respiratory: reports: Pneumonia Endocrine/Autoimmune: reports: None GI: reports: GERD : reports: None HEENT: reports: Chronic vision loss Psych: reports: None Musculoskeletal: reports: Osteoarthritis Derm: reports: Other MRSA Hx?: No - Past Surgical History General: reports: Cholecystectomy Ortho: reports: Spine surgery /IMPROVEMENT RN: reports: Tubal ligation, Hysterectomy - Family & Social History Family History: Mother: , CVA/TIA, Father: , CVA/TIA Family History Comment/Other: pt report both her parents from stroke. Social History Notes: she denies smoking, alcohol and drug abuse issue - POLST Patient has POLST: No Meds/Allgy - Home Medications Home Medications: Ambulatory Orders Medication Instructions Recorded Confirmed Acetaminophen 500 mg Q8HR PRN 09/12/19 09/12/19 Amox/Clav 875/125 [Augmentin] 1 each PO Q12H #14 tablet 09/12/19 Apixaban [Eliquis] 5 mg BID 09/12/19 09/12/19 Baclofen 0.5 tab BID PRN 09/12/19 09/12/19 Famotidine 20 mg BID 09/12/19 09/12/19 Ipratropium/Albuterol [Duoneb] 3 ml Q6HR PRN 09/12/19 09/12/19 Lidocaine [Lidocaine Pain Relief] 1 patch DAILY 09/12/19 09/12/19 Losartan Potassium 25 mg DAILY 09/12/19 09/12/19 Ondansetron HCl [Zofran] 4 mg Q6HR PRN 09/12/19 09/12/19 Simvastatin [Zocor] 40 mg DAILY 09/12/19 09/12/19 traMADol [Ultram] 50 mg Q6HR PRN 09/12/19 09/12/19 - Allergies Allergies/Adverse Reactions: Allergies Allergy/AdvReac Type Severity Reaction Status Date / Time fexofenadine Allergy Unknown Verified 01/02/20 13:35 Review of Systems - Constitutional Constitutional: denies: Fatigue, Fever, Chills, Weakness, Diaphoresis - Eyes Eyes: denies: Pain, Blurred vision, Spots in vision, Field loss, Vision loss, Dipolpia - Ears, Nose & Throat Ears, Nose & Throat: denies: Ear pain, Hearing aids, Vertigo, Nosebleeds, Mouth lesions, Bleeding gums - Cardiovascular Cariovascular: denies: Irregular heart rate, Palpitations, Chest pain, Syncope, Exertional dyspnea - Respiratory Respiratory: denies: Cough, Sputum production, Wheezing, Hemoptysis, SOB at rest - Gastrointestinal Gastrointestinal: reports: Abdominal pain, Bloody stools. denies: Constipation, Diarrhea, Rectal bleeding, Black stools, Nausea, Vomiting, Coffee grounds emesis - Genitourinary Genitourinary: denies: Dysuria, Urgency, Hematuria, Flank pain - Musculoskeletal Musculoskeletal: denies: Muscle pain, Muscle aches, Muscle weakness - Integumentary Integumentary: denies: Rash, Lesions, Lumps - Neurological Neurological: denies: General weakness, Focal weakness, Headache, Dizziness, Nu mbness, Pre-existing deficit, Seizures, Incoordination, Slurred speech - Psychiatric Psychiatric: denies: Suicidal, Delusions, Hallucinations, Homicidal - Endocrine Endocrine: denies: Polyuria, Polyphagia - Hematologic/Lymphatic Hematologic/Lymphatic: denies: Anemia, Bruising, Blood clots, Lymphadenopathy, Recurrent infections Exam - Vital Signs Vital Signs: Vital Signs x48h Temp Pulse Resp BP Pulse Ox 01/02/20 15:01 75 16 94/50 L 100 01/02/20 14:35 71 14 74/33 L 99 01/02/20 14:30 73 16 74/33 L 99 01/02/20 14:00 90 17 83/40 L 100 01/02/20 13:30 71 18 85/63 L 97 01/02/20 13:26 69 17 85/63 L 01/02/20 12:46 36.7 C 91 17 92/49 L 99 01/02/20 12:45 76 18 75/55 L 99 - Physical Exam General Appearance: positive: No acute distress, Alert. negative: Lethargic Eyes Bilateral: positive: Normal inspection, PERRL, No lid inflammation ENT: positive: ENT inspection nml, Pharynx nml, No signs of dehydration. negative: Purulent nasal drainage, Dry mucous membranes Neck: positive: Nml inspection, Thyroid nml, No JVD, Trachea midline. negative: Thyromegaly, Stiff neck, Tracheal deviation Respiratory: positive: Chest non-tender, No respiratory distress. negative: Wheezes, Rales, Rhonchi Cardiovascular: positive: Regular rate & rhythm, No murmur, No gallop. negative: Tachycardia, Bradycardia, Systolic murmur, Diastolic murmur Peripheral Pulses: positive: 2+ Abdomen: positive: Non-tender, No organomegaly, Nml bowel sounds, No distention. negative: Tenderness, Guarding, Rebound Back: positive: Nml inspection. negative: CVA tenderness (R), CVA tenderness (L) Skin: positive: Color nml, No rash, Warm, Dry. negative: Cyanosis, Diaphoresis, Pallor Extremities: positive: Non-tender, Nml appearance. negative: Calf tenderness, Alireza's sign/cords Neurologic/Psychiatric: positive: Sensation nml. negative: Weakness, Sensory loss, Facial droop, Slurred/abnml speech, Depressed mood/affect Sepsis Event Note (H) - Evaluation Current Stage of Sepsis: Sepsis Possible source of Sepsis: positive: GI tract/intra-abdominal - Sepsis Criteria Sepsis Criteria: MAP less than 65 mmHg Conclusion/Plan - Problem List (1) GI bleed Conclusion/Plan: Patient report having several times of the bleeding stool. Hemoglobin is 9.8 on today and a 12.1 about a 1 month ago. CAT scan of abdomen review coliti s/diverticulitis, Colonoscopy is recommended to exclude malignancy. Consult with GI surgeon, n.p.o. midnight, H&H to monitor patient hemoglobin. Hold home medication Eliquis. Patient is likely has a low GI bleeding, Possible from infection Qualifiers: GI bleed type/associated pathology: unspecified gastrointestinal hemorrhage type Qualified Code(s): K92.2 - Gastrointestinal hemorrhage, unspecified (2) Sepsis Conclusion/Plan: Patient initially blood pressure only has 7555. After she had 2 L of normal saline in the ER her blood pressure up to 94 systolic. Now patient has acute infection colitis/diverticulitis. Patient also has elevated WBC. Patient has no fever. patient has likely sepsis. but Patient has a history slightly low blood pressure. ER started on Zosyn, will continue. Continue intravenous of IV fluids. Patient also have history severe pulmonary hypertension and right side heart failure. We also will do echo to monitor patient and precaution of Fluids overloaded.Continue vital signs monitor and satellite project site monitor (3) Diverticulitis Conclusion/Plan: Calcium scan indicated patient has colitis/diverticulitis, Continue on Zosyn And intravenous IV fluids, pain control. (4) Anemia Conclusion/Plan: Patient has a hemoglobin 9.8, she had a 12.1 a month ago, it is likely from patient has active blood loss from GI bleeding. We will continue H and H to monitor patient hemoglobin. Patient MCV 78, we will do anemia study, and start with iron pill (5) Elevated liver enzymes Conclusion/Plan: Patient has elevated total bili and elevated alkaline phosphatase.Unknown etiology. We will order ultrasound for the liver. Continue laboratory monitoring (6) Hypertension Conclusion/Plan: Patient has history of hypertension but right now patient is a hypotension. We will hold patient home blood pressure meds, continue vital signs monitor (7) Pulmonary hypertension Conclusion/Plan: Patient has a history of moderate to severe pulmonary hypertension with right- sided heart failure. Now patient has hypotension,We will precaution for patient intravenous IV fluids. Hold ECHO to monitor patient - Lab Results Fish Bones: 01/02/20 12:50 01/02/20 12:50 Core Measures - Anticipated LOS I expect patient to be DC'd or transferred within 96 hours.: Yes - DVT/VTE - Prophylaxis VTE/DVT Device ordered at admit?: Yes VTE/DVT Prophylaxis med ordered at admit?: Yes
[2020-01-02] MEDS ORDERED: SODIUM CHLORIDE 0.9% 1,000 ML IV SCH ×2 (16:00→16:14)
[2020-01-02 16:17] LABS: ABSOLUTE RETICS # AUTO 0.06 10^6/uL (0.020-0.110); RED BLOOD COUNT 3.85 10^6/uL (4.20-5.40)
[2020-01-02 16:48] LABS: FERRITIN 61.7 ng/mL (11.0-306.8)
[2020-01-02] MEDS ORDERED: FERROUS SULFATE 325 MG TABLET PO SCH (17:00)
[2020-01-02 17:12] LABS: % IRON SATURATION 14 % (20-50); IRON 33 ug/dL (28-170); TOTAL IRON BINDING CAPACITY 241 ug/dL (250-450); TRANSFERRIN 172 mg/dL (192-382)
--- NOTE | 2020-01-02 17:23 | PHARMACY PROGRESS NOTE ---
- Best Possible Medication History Admit Date and Time: 01/02/20 1510 Processed by: Pharmacy Medication History completed: Yes Patient Interview: Pt unable to participate Secondary Source(s): Pharmacy records, Insurance records (HOME MEDICATIONS MAR FROM [facility] USED FOR [employer] As the person ultimately responsible for medication therapy, providers are able to order a medication from an existing home medication list in [facility] via the "Reconcile Routine" prior to Confirmation of that medication by system support technician. Such practice is discouraged except when the physician, in their clinical judgment, deems that a medical need exists for a medication without regard to previous use.
[2020-01-02] MEDS: SODIUM CHLORIDE FLUSH 0.9% 10 ML SYRINGE IVP SCH (18:38)
[2020-01-02] MEDS: PANTOPRAZOLE 40 MG VIAL IVP SCH (18:50)
[2020-01-02] MEDS ORDERED: SODIUM CHLORIDE 0.9% 1,000 ML IV ONE (19:27)
[2020-01-02 19:58] LABS: HGB - HEMOGLOBIN 8.6 g/dL (12.0-16.0)
[2020-01-02] MEDS ORDERED: PEG 3350/NA SULF,BICARB,CL/KCL 4,000 ML BOTTLE PO ONE (20:44)
--- NOTE | 2020-01-02 20:44 | CONSULTATION NOTE ---
Referring Provider Name of Referring Provider:: Hospitalist Consult Date: 01/02/20 Chief Complaint - Chief Complaint Chief Complaint: Gastrointestinal bleed History of Present Illness - Admitted From Admitted From:: Facility - History Obtained From Records Reviewed: EMR History obtained from: Patient & EMR Exam Limitations: Dementia - History of Present Illness HPI Comment/Other: 84 yo female with MMP on systemic AC admitted for GIB with hematochezia. 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 Social History Notes: she denies smoking, alcohol and drug abuse issue - POLST Patient has POLST: No Meds/Allgy - Home Medications Home Medications: Ambulatory Orders Medication Instructions Recorded Confirmed Acetaminophen 500 mg Q8HR PRN 09/12/19 01/02/20 Apixaban [Eliquis] 5 mg PO BID 09/12/19 01/02/20 Famotidine 20 mg PO BID 09/12/19 01/02/20 Losartan Potassium 25 mg PO DAILY 09/12/19 01/02/20 Ondansetron HCl [Zofran] 4 mg PO Q6HR PRN 09/12/19 01/02/20 Simvastatin [Zocor] 40 mg PO DAILY 09/12/19 01/02/20 traMADol [Ultram] 50 mg PO Q6HR PRN 09/12/19 01/02/20 Albuterol Sulf [Ventolin Hfa 2 puffs PO Q4H PRN 01/02/20 01/02/20 Inhaler] Baclofen 5 mg PO BID 01/02/20 01/02/20 Ferrous Gluconate 240 mg PO DAILY 01/02/20 01/02/20 L.acid/L.casei/B.bif/B.magan/Fos 1 cap PO BID 01/02/20 01/02/20 [Probiotic Blend Capsule] Meclizine [Antivert] 12.5 mg PO BID 01/02/20 01/02/20 Senna [Senokot] 17.2 mg PO DAILY 01/02/20 01/02/20 carvediloL [Coreg] 3.125 mg PO DAILY 01/02/20 01/02/20 - Allergies Allergies/Adverse Reactions: Allergies Allergy/AdvReac Type Severity Reaction Status Date / Time fexofenadine Allergy Unknown Verified 01/02/20 13:35 Exam - Vital Signs Vital Signs: Vital Signs x48h Temp Pulse Pulse Resp BP BP Pulse Ox 01/02/20 19:15 65 18 72/39 L 98 01/02/20 16:49 36.3 C L 76 18 107/40 L 97 01/02/20 16:11 65 15 94/45 L 98 01/02/20 15:39 74 16 93/47 L 99 01/02/20 15:01 75 16 94/50 L 100 01/02/20 14:35 71 14 74/33 L 99 01/02/20 14:30 73 16 74/33 L 99 01/02/20 14:00 90 17 83/40 L 100 01/02/20 13:30 71 18 85/63 L 97 01/02/20 13:26 69 17 85/63 L 01/02/20 12:46 36.7 C 91 17 92/49 L 99 01/02/20 12:45 76 18 75/55 L 99 - Physical Exam General Appearance: positive: Anxious Eyes Bilateral: positive: Normal inspection, PERRL, EOMI ENT: positive: ENT inspection nml Neck: positive: Nml inspection Respiratory: positive: Chest non-tender, Breath sounds nml Cardiovascular: positive: Regular rate & rhythm Abdomen: positive: No distention, Tenderness, Other (Abdomen soft, mildly tender to palpation, no rebound no guarding. Patient with no generalized peritoneal signs.) Neurologic/Psychiatric: positive: Disoriented to place, Disoriented to time. negative: Disoriented to person Conclusion and Plan - Lab Results Microbiology Results 01/02/20 13:10 Stool Occult Blood - Final Laboratory Results 01/02/20 19:48: Hgb 8.6 L, Hct 27.5 L 01/02/20 13:15: Lactic Acid 1.8 01/02/20 12:50: Lactate Dehydrogenase 186 01/02/20 12:50: Ferritin 61.7, Vitamin B12 2143 H 01/02/20 12:50: Iron 33, TIBC 241 L, % Saturation 14 L, Transferrin 172 L 01/02/20 12:50: RBC 3.85 L, Reticulocyte % (Auto) 1.57, Absolute Retic 0.060 01/02/20 12:50: Sodium 132 L, Potassium 4.6, Chloride 101, Carbon Dioxide 20 L, Anion Gap 11.0, BUN 34 H, Creatinine 1.0, Estimated GFR (MDRD) 53 L, Glucose 117 H, Calcium 9.2, Total Bilirubin 2.9 H, AST 94 H, ALT 29, Alkaline Phosphatase 504 H, Total Protein 5.7 L, Albumin 2.4 L, Globulin 3.3, Albumin/Globulin Ratio 0.7 L, Lipase 39 01/02/20 12:50: PT 28.8 H, INR 2.7 H, APTT 40.3 H 01/02/20 12:50: WBC 14.4 H, RBC 3.89 L, Hgb 9.8 L, Hct 30.5 L, MCV 78.4 L, MCH 25.2 L, MCHC 32.1, RDW 20.3 H, Plt Count 256, MPV 10.3, Neut # (Auto) 10.6 H, Lymph # (Auto) 2.0, Warren # (Auto) 1.5 H, Eos # (Auto) 0.1, Baso # (Auto) 0.1, Absolute Nucleated RBC 0.00, Nucleated RBC % 0.0, Manual Slide Review Indicated, Platelet Estimate NORMAL (130-450,000), Platelet Morphology NORMAL APPEARANCE, RBC Morph Micro Appear KHALIL JOLLY BODIES 01/02/20 12:50: Blood Type A NEGATIVE, Antibody Screen NEGATIVE - Diagnosis Diagnosis: 1. GIB bleed. 2. Right sided colitis. 3. Multiply comorbid states - Plan Plan: 1. Admit to inpatient, with hospitalist service 2. Trend H/H and transfuse appropriately 3. Hold AC and correct coagulopathy 4. Plan upper endoscopy as well as lower colonoscopy; proceed with bowel prep 5. Appropriately aggressive resuscitation 6. Stool studies 7. Bowel rest 8. PPI infusion and consider Carafate pending results
[2020-01-02] MEDS: SODIUM CHLORIDE 0.9% 1,000 ML IV SCH (22:58)
[2020-01-02] MEDS: PIPERACILLIN/TAZOBACTAM 3.375 GM in SODIUM CHLORIDE 0.9% MINIBAG 100 ML IV SCH (22:59)
[2020-01-03] MEDS: SODIUM/POTASSIUM/MAG SULFATES 354 ML PREP KIT PO SCH ×4 (00:27→09:16)
[2020-01-03] MEDS: SODIUM CHLORIDE FLUSH 0.9% 10 ML SYRINGE IVP SCH ×3 (01:27→16:42)
[2020-01-03] MEDS: MIN OIL/DIMETHICON/COCONUT OIL 92 GM TUBE TOP PRN (05:07)
[2020-01-03 05:33] LABS: BASOPHILS % (AUTO) 0.3 %; EOSINOPHILS # (AUTO) 0.1 10^3/uL (0.0-0.7); EOSINOPHILS % (AUTO) 0.7 %; HGB - HEMOGLOBIN 8.9 g/dL (12.0-16.0); LYMPHOCYTES # (AUTO) 1.9 10^3/uL (1.5-3.5); LYMPHOCYTES % (AUTO) 16.7 %; MEAN CORPUSCULAR HEMOGLOBIN 24.7 pg (27.0-31.0); MEAN CORPUSCULAR VOLUME 79.5 fL (81.0-99.0); MONOCYTES # (AUTO) 1.3 10^3/uL (0.0-1.0); MONOCYTES % (AUTO) 11.4 %; NEUTROPHILS # (AUTO) 8.2 10^3/uL (1.5-6.6); NEUTROPHILS % (AUTO) 70.2 %; PLT - PLATELET COUNT 197 10^3/uL (130-450); RED BLOOD COUNT 3.61 10^6/uL (4.20-5.40); RED CELL DISTRIBUTION WIDTH 20.6 % (12.0-15.0); WHITE BLOOD COUNT 11.6 x10^3/uL (4.8-10.8)
[2020-01-03 05:43] LABS: INR 1.9 (0.8-1.2); PT - PROTHROMBIN TIME 21.3 secs (9.9-12.6)
[2020-01-03 05:46] LABS: ALBUMIN 2.1 g/dL (3.2-5.5); ALBUMIN/GLOBULIN RATIO 0.7 (1.0-2.2); BILIRUBIN,TOTAL 2.2 mg/dL (0.2-1.0); CALCIUM 8.3 mg/dL (8.5-10.3); CREATININE 0.9 mg/dL (0.4-1.0); MAGNESIUM 2.2 mg/dL (1.7-2.8); PHOSPHORUS 2.9 mg/dL (2.5-4.6); TOTAL PROTEIN 5.1 g/dL (6.7-8.2)
[2020-01-03] MEDS: SODIUM CHLORIDE FLUSH 0.9% 10 ML SYRINGE IVP PRN (05:54)
[2020-01-03] MEDS: PANTOPRAZOLE 40 MG VIAL IVP SCH (05:54)
[2020-01-03] MEDS: PIPERACILLIN/TAZOBACTAM 3.375 GM in SODIUM CHLORIDE 0.9% MINIBAG 100 ML IV SCH ×3 (05:55→22:46)
[2020-01-03 06:41] LABS: RBC MORPHOLOGY (MULTIPLE) 3+ ROULEAUX (NORMAL)
[2020-01-03 06:42] LABS: PLATELET ESTIMATE, MANUAL NORMAL (130-450,000) (NORMAL); PLATELET MORPHOLOGY NORMAL APPEARANCE (NORMAL)
[2020-01-03] MEDS: SODIUM CHLORIDE 0.9% 1,000 ML IV SCH (08:06)
[2020-01-03] MEDS: FERROUS SULFATE 325 MG TABLET PO SCH (09:15)
[2020-01-03] MEDS: ONDANSETRON 4 MG/2 ML VIAL IVP PRN (10:03)
[2020-01-03 11:11] LABS: BILIRUBIN,URINE NEGATIVE (NEGATIVE); GLUCOSE, URINE (UA) NEGATIVE (NEGATIVE); KETONES,URINE (UA) NEGATIVE (NEGATIVE); LEUKOCYTE ESTERASE, URINE MODERATE (NEGATIVE); NITRITE,URINE NEGATIVE (NEGATIVE); OCCULT BLOOD,URINE TRACE-INTA (NEGATIVE); PROTEIN,URINE NEGATIVE (NEGATIVE); UROBILINOGEN,URINE 0.2 (NORMAL) E.U./dL (NORMAL)
[2020-01-03 11:12] LABS: CLARITY,URINE CLOUDY (CLEAR)
[2020-01-03 11:25] LABS: BACTERIA,URINE Many /HPF (None Seen); RBC,URINE 0-5 /HPF (0-5); SQUAMOUS EPITHELIAL CELL,UR FEW Squamous (<= Few); WBC CLUMPS,URINE PRESENT
[2020-01-03 11:26] LABS: CASTS, URINE >50 Granular Casts /LPF
[2020-01-03 12:09] LABS: HGB - HEMOGLOBIN 9.5 g/dL (12.0-16.0)
--- NOTE | 2020-01-03 17:00 | PROVIDER PROGRESS NOTE ---
Assessment/Plan - Problem List (1) GI bleed Qualifiers: GI bleed type/associated pathology: unspecified gastrointestinal hemorrhage type Qualified Code(s): K92.2 - Gastrointestinal hemorrhage, unspecified Assessment/Plan: She still had some blood in her bowel movements, also seen because she got a prep for colonoscopy. Continue to follow her CBC daily Transfuse if hemoglobin under 7. Await general surgery input regarding timing of colonoscopy. (2) Anemia Qualifiers: Anemia type: unspecified type Qualified Code(s): D64.9 - Anemia, unspecified Assessment/Plan: [place]ob[place] of 9 has decreased to 8. Continue to follow CBC daily. Transfuse if hemoglobin under 7. (3) Colitis Assessment/Plan: Colitis was seen on imaging. She is on empiric IV Zosyn. Continue with bowel rest, iv hydration. Pain meds if needed. (4) Sepsis Assessment/Plan: Tachycardia and hypotension have improved. WBC 14>> 11. Continue with treatment for source which appears to be colitis. Blood cultures pending (5) UTI (urinary tract infection) Assessment/Plan: The urinalysis did show white cells and bacteria. This could be the reason for her intermittent confusion and weakness Her empiric IV Zosyn also covers UTI bacteria. Continue IV hydration. (6) Confusion Assessment/Plan: Possibly related to her UTI or tramadol use. She did not get a narcotics today for abdominal pain that she had yesterday. We will stop the tramadol order. Continue with IV hydration. Continue IV antibiotics for colitis and UTI treatment. (7) Anticoagulation adequate Assessment/Plan: Patient has a history of DVT and PE. She is on Coumadin. Follow INR daily, target is 2-3 (8) Elevated liver enzymes Assessment/Plan: Patient has elevated total bili and elevated alkaline phosphatase. Unknown etiology. CT abdomen did not report any specific problems with the gallbladder or biliary duct. Cancel ultrasound of gallbladder due to abdominal pain. Follow CMP daily (9) Hx of essential hypertension Assessment/Plan: Patient has history of hypertension but right now patient is hypotensive. 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 Now patient has systemic hypotension. We will be germaine with intravenous IV fluids. Echo oin Mon re pulm pressure (we do not have this available over the weekend, today is Sunday) - Current Meds Current Meds: Current Medications Generic Name Dose Route Start Last Admin Trade Name Freq PRN Reason Stop Dose Admin Ferrous Sulfate 325 mg 01/03/20 09:00 01/03/20 09:15 Feosol PO 325 mg DAILY LUIS M Administration Piperacillin Sod/Tazobactam 100 mls @ 25 mls/hr 01/02/20 23:00 01/03/20 14:13 Sod 3.375 gm/ Sodium Chloride IV 25 mls/hr Q8H LUIS M Administration Sodium Chloride 1,000 mls @ 100 mls/hr 01/02/20 22:00 01/03/20 13:42 Normal Saline 0.9% IV 100 mls/hr .Q10H LUIS M Infusion Mineral Oil 1 applic 01/03/20 04:34 01/03/20 05:07 Cavilon TOP 1 applic PRN PRN Administration Skin Care Ondansetron HCl 4 mg 01/02/20 15:10 01/03/20 10:03 Zofran Inj IVP 4 mg Q6HR PRN Administration Nausea / Vomiting Pantoprazole Sodium 40 mg 01/02/20 16:00 01/03/20 05:54 Protonix IVP 40 mg QDAC LUIS M Administration Sodium Chloride 10 ml 01/02/20 15:10 01/03/20 05:54 Normal Saline Flush 0.9% IVP 10 ml PRN PRN Administration NEEDED PER PROVIDER ORDERS Sodium Chloride 10 ml 01/02/20 17:00 01/03/20 16:42 Normal Saline Flush 0.9% IVP Not Given 0100,0900,1700 LUIS M - Lab Result Fish Bone Diagrams: 01/03/20 11:55 01/03/20 05:00 - Additional Planning My Orders: My Active Orders 01/03/20 10:32 Straight Catheter Insertion [RC] ONCE 01/05/20 08:00 Echo Transthoracic Complete [ECHO] Routine Subjective - Subjective Patient Reports: Resting Comfortably Nursing Reports: Confused, Other (He oscillates from being weak and confused to being alert and awake and able to feed herself) Objective Vital Signs: Vital Signs - 24 hr 01/02/20 01/02/20 01/03/20 19:15 21:15 00:00 Temperature 36.2 C L 36.6 C Heart Rate Heart Rate [ 65 76 78 Brachial] Heart Rate [ Monitoring electrodes] Respiratory 18 16 16 Rate Blood Pressure 72/39 L 93/41 L 91/37 L [Left Brachial artery] Blood Pressure [Right Brachial artery] Blood Pressure [Right] O2 Saturation 98 95 94 01/03/20 01/03/20 01/03/20 00:28 01:40 02:45 Temperature 36.5 C Heart Rate Heart Rate [ 92 106 H 86 Brachial] Heart Rate [ Monitoring electrodes] Respiratory 18 18 Rate Blood Pressure [Left Brachial artery] Blood Pressure [Right Brachial artery] Blood Pressure 88/47 L 86/39 L 100/47 L [Right] O2 Saturation 100 01/03/20 01/03/20 01/03/20 03:33 07:30 08:00 Temperature 36.5 C 35.6 C L Heart Rate 82 Heart Rate [ 86 72 Brachial] Heart Rate [ Monitoring electrodes] Respiratory 16 16 14 Rate Blood Pressure [Left Brachial artery] Blood Pressure 117/77 92/39 L [Right Brachial artery] Blood Pressure [Right] O2 Saturation 100 92 01/03/20 15:52 Temperature 36.5 C Heart Rate Heart Rate [ Brachial] Heart Rate [ 86 Monitoring electrodes] Respiratory 16 Rate Blood Pressure [Left Brachial artery] Blood Pressure 105/56 L [Right Brachial artery] Blood Pressure [Right] O2 Saturation 95 Oxygen O2 Source Room air I&O (Last 24 Hrs): Intake and Output Totals x24h 01/01/20 01/02/20 01/03/20 23:59 23:59 23:59 Intake Total 4011.125 4614.333 Output Total 800 Balance 4011.125 3814.333 General: Other (currently sleeping) HEENT: Mucous membr. moist/pink, Other (Multiple scaly red lesions of the face) Neck: Supple Neuro: Disoriented, Non Focal, Other (Confusion and intermittent weakness) Cardiovascular: Regular rate, No murmurs Respiratory: No respiratory distress, Breath sounds nml Abdomen: Soft, No tenderness Extremities: No edema - Results Results: Laboratory Results WBC 11.6 x10^3/uL (4.8-10.8) H 01/03/20 05:00 RBC 3.61 10^6/uL (4.20-5.40) L 01/03/20 05:00 Hgb 9.5 g/dL (12.0-16.0) L 01/03/20 11:55 Hct 29.5 % (37.0-47.0) L 01/03/20 11:55 MCV 79.5 fL (81.0-99.0) L 01/03/20 05:00 MCH 24.7 pg (27.0-31.0) L 01/03/20 05:00 MCHC 31.0 g/dL (32.0-36.0) L 01/03/20 05:00 RDW 20.6 % (12.0-15.0) H 01/03/20 05:00 Plt Count 197 10^3/uL (130-450) 01/03/20 05:00 MPV 10.0 fL (7.9-10.8) 01/03/20 05:00 Reticulocyte % (Auto) 1.57 % (0.5-2.3) 01/02/20 12:50 Neut # (Auto) 8.2 10^3/uL (1.5-6.6) H 01/03/20 05:00 Lymph # (Auto) 1.9 10^3/uL (1.5-3.5) 01/03/20 05:00 [place] # (Auto) 1.3 10^3/uL (0.0-1.0) H 01/03/20 05:00 Eos # (Auto) 0.1 10^3/uL (0.0-0.7) 01/03/20 05:00 Baso # (Auto) 0.0 10^3/uL (0.0-0.1) 01/03/20 05:00 Absolute Nucleated RBC 0.00 x10^3/uL 01/03/20 05:00 Nucleated RBC % 0.0 /100WBC 01/03/20 05:00 Manual Slide Review Indicated 01/03/20 05:00 WBC Morphology NORMAL APPEARANCE (NORMAL) 01/03/20 05:00 Platelet Estimate NORMAL (130-450,000) (NORMAL) 01/03/20 05:00 Platelet Morphology NORMAL APPEARANCE (NORMAL) 01/03/20 05:00 RBC Morph Micro Appear 3+ [place] (NORMAL) 01/03/20 05:00 Absolute Retic 0.060 10^6/uL (0.020-0.110) 01/02/20 12:50 PT 21.3 secs (9.9-12.6) H 01/03/20 05:00 INR 1.9 (0.8-1.2) H 01/03/20 05:00 APTT 40.3 secs (24.9-33.3) H 01/02/20 12:50 Sodium 136 mmol/L (135-145) 01/03/20 05:00 Potassium 4.4 mmol/L (3.5-5.0) 01/03/20 05:00 Chloride 111 mmol/L (101-111) 01/03/20 05:00 Carbon Dioxide 17 mmol/L (21-32) L 01/03/20 05:00 Anion Gap 8.0 (6-13) 01/03/20 05:00 BUN 29 mg/dL (6-20) H 01/03/20 05:00 Creatinine 0.9 mg/dL (0.4-1.0) 01/03/20 05:00 Estimated GFR (MDRD) 60 (>89) L 01/03/20 05:00 Glucose 90 mg/dL (70-100) 01/03/20 05:00 Lactic Acid 1.8 mmol/L (0.5-2.2) 01/02/20 13:15 Calcium 8.3 mg/dL (8.5-10.3) L 01/03/20 05:00 Phosphorus 2.9 mg/dL (2.5-4.6) 01/03/20 05:00 Magnesium 2.2 mg/dL (1.7-2.8) 01/03/20 05:00 Iron 33 ug/dL (28-170) 01/02/20 12:50 TIBC 241 ug/dL (250-450) L 01/02/20 12:50 % Saturation 14 % (20-50) L 01/02/20 12:50 Transferrin 172 mg/dL (192-382) L 01/02/20 12:50 Ferritin 61.7 ng/mL (11.0-306.8) 01/02/20 12:50 Total Bilirubin 2.2 mg/dL (0.2-1.0) H 01/03/20 05:00 AST 83 IU/L (10-42) H 01/03/20 05:00 ALT 29 IU/L (10-60) 01/03/20 05:00 Alkaline Phosphatase 501 IU/L (42-121) H 01/03/20 05:00 Lactate Dehydrogenase 186 IU/L (91-225) 01/02/20 12:50 Total Protein 5.1 g/dL (6.7-8.2) L 01/03/20 05:00 Albumin 2.1 g/dL (3.2-5.5) L 01/03/20 05:00 Globulin 3.0 g/dL (2.1-4.2) 01/03/20 05:00 Albumin/Globulin Ratio 0.7 (1.0-2.2) L 01/03/20 05:00 Lipase 39 U/L (22-51) 01/02/20 12:50 Vitamin B12 2143 pg/mL (180-914) H 01/02/20 12:50 Urine Color YELLOW 01/03/20 11:05 Urine Clarity CLOUDY (CLEAR) 01/03/20 11:05 Urine pH 5.0 PH (5.0-7.5) 01/03/20 11:05 Ur Specific [place] 1.020 (1.002-1.030) 01/03/20 11:05 Urine Protein NEGATIVE mg/dL (NEGATIVE) 01/03/20 11:05 Urine Glucose (UA) NEGATIVE mg/dL (NEGATIVE) 01/03/20 11:05 Urine Ketones NEGATIVE mg/dL (NEGATIVE) 01/03/20 11:05 Urine Occult Blood TRACE-INTA (NEGATIVE) 01/03/20 11:05 Urine Nitrite NEGATIVE (NEGATIVE) 01/03/20 11:05 Urine Bilirubin NEGATIVE (NEGATIVE) 01/03/20 11:05 Urine Urobilinogen 0.2 (NORMAL) E.U./dL (NORMAL) 01/03/20 11:05 Ur Leukocyte Esterase MODERATE (NEGATIVE) H 01/03/20 11:05 Urine RBC 0-5 /HPF (0-5) 01/03/20 11:05 Urine WBC >25 /HPF (0-5) H 01/03/20 11:05 Urine WBC Clumps PRESENT 01/03/20 11:05 Ur Squamous Epith Cells FEW Squamous (<= Few) 01/03/20 11:05 Urine Bacteria Many /HPF (None Seen) H 01/03/20 11:05 Urine Casts >50 Granular Casts /LPF 01/03/20 11:05 Ur Microscopic Review INDICATED 01/03/20 11:05 Urine Culture Comments INDICATED 01/03/20 11:05 Stl C. diff Tox B Gene NEGATIVE (NEGATIVE) 01/02/20 21:45 Blood Type A NEGATIVE 01/02/20 12:50 Antibody Screen NEGATIVE 01/02/20 12:50 - Procedures Procedures: Procedures CATARAC PHACOEMULS/ASPIR (04/30/14) INSERT LENS AT CATAR EXT (04/30/14) Sepsis Event Note (H) - Evaluation Current Stage of Sepsis: Sepsis Possible source of Sepsis: positive: GI tract/intra-abdominal - Sepsis Criteria Sepsis Criteria: MAP less than 65 mmHg
[2020-01-04] MEDS: MIN OIL/DIMETHICON/COCONUT OIL 92 GM TUBE TOP PRN ×2 (00:35→04:44)
[2020-01-04] MEDS: SODIUM CHLORIDE FLUSH 0.9% 10 ML SYRINGE IVP SCH ×3 (04:47→17:42)
[2020-01-04 05:11] LABS: BASOPHILS % (AUTO) 0.4 %; EOSINOPHILS % (AUTO) 0.4 %; HGB - HEMOGLOBIN 8.4 g/dL (12.0-16.0); LYMPHOCYTES % (AUTO) 19.1 %; MEAN CORPUSCULAR HEMOGLOBIN 25.2 pg (27.0-31.0); MEAN CORPUSCULAR HGB CONC 31.9 g/dL (32.0-36.0); MEAN PLATELET VOLUME 9.6 fL (7.9-10.8); MONOCYTES % (AUTO) 13.2 %; NEUTROPHILS % (AUTO) 66.3 %; PLT - PLATELET COUNT 196 10^3/uL (130-450); RED BLOOD COUNT 3.33 10^6/uL (4.20-5.40); RED CELL DISTRIBUTION WIDTH 20.9 % (12.0-15.0); WHITE BLOOD COUNT 12.9 x10^3/uL (4.8-10.8)
[2020-01-04 05:17] LABS: ABNORMAL LYMPHS % (MANUAL) 0 %; BAND NEUTROPHILS % (MANUAL) 0 %; INR 1.8 (0.8-1.2); PT - PROTHROMBIN TIME 19.7 secs (9.9-12.6)
[2020-01-04 05:29] LABS: ALBUMIN/GLOBULIN RATIO 0.7 (1.0-2.2); BILIRUBIN,TOTAL 2.2 mg/dL (0.2-1.0); CALCIUM 8.7 mg/dL (8.5-10.3); CREATININE 1.2 mg/dL (0.4-1.0); MAGNESIUM 2.2 mg/dL (1.7-2.8); PHOSPHORUS 3.8 mg/dL (2.5-4.6)
[2020-01-04 05:39] LABS: LYMPHOCYTES # (MANUAL) 3.2 10^3/uL (1.5-3.5); LYMPHOCYTES % (MANUAL) 25 %
[2020-01-04 05:41] LABS: DIFFERENTIAL COMMENT MANUAL DIFFERENTIAL; PLATELET ESTIMATE, MANUAL NORMAL (130-450,000) (NORMAL); PLATELET MORPHOLOGY NORMAL APPEARANCE (NORMAL); RBC MORPHOLOGY (MULTIPLE) 1+ ANISOCYTOSIS (NORMAL)
[2020-01-04] MEDS: PANTOPRAZOLE 40 MG VIAL IVP SCH (06:09)
[2020-01-04] MEDS: PIPERACILLIN/TAZOBACTAM 3.375 GM in SODIUM CHLORIDE 0.9% MINIBAG 100 ML IV SCH (06:10)
[2020-01-04] MEDS: SODIUM CHLORIDE FLUSH 0.9% 10 ML SYRINGE IVP PRN (06:10)
--- NOTE | 2020-01-04 08:25 | PROVIDER PROGRESS NOTE ---
Assessment/Plan - Problem List (1) Diverticulitis Assessment/Plan: Her white blood count is increasing from 11 to 12. C. difficile result is negative. Bacterial cultures of the stool are still pending. Because the WBC is not improving, will change her empiric IV Zosyn to iv Flagyl and a floraquinolone. Continue bowel rest. Will allow clear liquids today. (2) Colitis Assessment/Plan: The abdominal and pelvic CT showed stranding and fluid and thickening of the ce cum, consistent with colitis. Management will be as above for diverticulitis. (3) JOSÉ MIGUEL (acute kidney injury) Assessment/Plan: It appears she has not been on IV fluids all of yesterday, this looks like an oversight, fluids were started but then stopped earlier this admission. I suspect she is prerenal, causing elevated creatinine. This is also probably why she has not voided in over 8 hours. Will order str cath prn. We will give a saline bolus. Resume IV fluids containing calories: D5 NS with potassium at 100 cc an hour. Clear liquid diet ordered to start today. (4) UTI (urinary tract infection) Assessment/Plan: Her urinalysis is consistent with a UTI; elevated Leukocyte Esterase, many white cells, many bacteria and casts. Daughter told her RN that she has this type of confusion whenever she gets a UTI She was on Zosyn empirically, started at admission. Today she will be changed to a fluoroquinolone empirically, which will also cover typical UTI bacteria. Await the urine culture result. (5) Elevated bilirubin Assessment/Plan: Her bilirubin and alk phos remain elevated. Will now get retroperitoneal ultrasound to evaluate the gallbladder. She needs to be n.p.o. for 8 hours for this, therefore will order n.p.o. after midnight and the ultrasound should be done early in the morning tomorrow. We will change her IV Zosyn to iv Flagyl and a floraquinolone for poss cholecystitis. (6) GI bleed Qualifiers: GI bleed type/associated pathology: unspecified gastrointestinal hemorrhage type Qualified Code(s): K92.2 - Gastrointestinal hemorrhage, unspecified Assessment/Plan: No further maroon stools have been seen since she received her prep for possible colonoscopy. Hemoglobin has plateaued. Follow CBC daily. Transfuse if hemoglobin under 7. (7) Anemia Qualifiers: Anemia type: unspecified type Qualified Code(s): D64.9 - Anemia, unspecified Assessment/Plan: She is on oral iron replacement. The GI bleeding has appeared to have stopped. Follow CBC daily. Transfuse if hemoglobin under 7. (8) Confusion Assessment/Plan: Much improved over the last 12 to 24 hours. Continue treating with IV fluids, IV antibiotics, calories, start clear liquids, (9) Anticoagulation adequate Assessment/Plan: She is not on Coumadin. She was on Eliquis for PE and DVT Hx. Will not need daily INRs checked. The target is not 2-3, as in someone on Warfarin. The Eliquis has been stopped due to hematochezia. (10) Hx of essential hypertension Assessment/Plan: Her blood pressure meds have not been resumed since she is still running a "soft" blood pressure due to volume depletion. We will resume her p.o. meds for blood pressure when she is hyper tensive. (11) Pulmonary hypertension Assessment/Plan: This is in her history. An echo has been ordered to evaluate the current status, to be done tomorrow, today Sunday. (12) Sepsis Assessment/Plan: Resolved - Current Meds Current Meds: Current Medications Generic Name Dose Route Start Last Admin Trade Name Freq PRN Reason Stop Dose Admin Ferrous Sulfate 325 mg 01/03/20 09:00 01/03/20 09:15 Feosol PO 325 mg DAILY LUIS M Administration Piperacillin Sod/Tazobactam 100 mls @ 25 mls/hr 01/02/20 23:00 01/04/20 06:10 Sod 3.375 gm/ Sodium Chloride IV 25 mls/hr Q8H LUIS M Administration Mineral Oil 1 applic 01/03/20 04:34 01/04/20 04:44 Cavilon TOP 1 applic PRN PRN Administration Skin Care Ondansetron HCl 4 mg 01/02/20 15:10 01/03/20 10:03 Zofran Inj IVP 4 mg Q6HR PRN Administration Nausea / Vomiting Pantoprazole Sodium 40 mg 01/02/20 16:00 01/04/20 06:09 Protonix IVP 40 mg QDAC LUIS M Administration Sodium Chloride 10 ml 01/02/20 15:10 01/04/20 06:10 Normal Saline Flush 0.9% IVP 10 ml PRN PRN Administration NEEDED PER PROVIDER ORDERS Sodium Chloride 10 ml 01/02/20 17:00 01/04/20 06:10 Normal Saline Flush 0.9% IVP 10 ml 0100,0900,1700 [facility] Administration - Lab Result Fish Bone Diagrams: 01/04/20 04:55 01/04/20 04:55 - Additional Planning My Orders: My Active Orders 01/03/20 10:32 Straight Catheter Insertion [RC] ONCE 01/04/20 07:46 Retroperitoneal Limited [US] Routine 01/04/20 08:00 metroNIDAZOLE 500 MG/100 ML [Flagyl 500 mg/100 ml] 500 mg in 100 ml IV Q8H 01/04/20 09:00 Levofloxacin/D5W 750 mg/150 mL q24h levoFLOXacin 750 MG/150 ML [Levaquin 750 mg/150 ml] 750 mg in 150 ml IV Q24H 01/05/20 08:00 Echo Transthoracic Complete [ECHO] Routine Subjective - Subjective Patient Reports: Resting Comfortably, Other (Much more alert, communicative, appears to have better memory as well.) Objective Vital Signs: Vital Signs - 24 hr 01/03/20 01/03/20 01/03/20 15:52 20:00 20:19 Temperature 36.5 C 36.6 C Heart Rate 92 Heart Rate [ 92 Brachial] Heart Rate [ 86 Monitoring electrodes] Respiratory 16 18 18 Rate Blood Pressure 105/56 L 103/47 L [Right Brachial artery] O2 Saturation 95 95 01/04/20 01/04/20 00:00 04:40 Temperature 36.6 C 36.4 C L Heart Rate Heart Rate [ 82 Brachial] Heart Rate [ 83 Monitoring electrodes] Respiratory 16 16 Rate Blood Pressure 92/47 L 94/40 L [Right Brachial artery] O2 Saturation 92 92 Oxygen O2 Source Room air I&O (Last 24 Hrs): Intake and Output Totals x24h 01/02/20 01/03/20 01/04/20 23:59 23:59 23:59 Intake Total 4011.125 4119.333 100 Output Total 800 Balance 4011.125 9849.333 100 General: Alert HEENT: Mucous membr. moist/pink, Other (Scaly red rash of the face) Neck: Supple, No JVD Neuro: Alert, Disoriented, Non Focal Cardiovascular: Regular rate, No murmurs Respiratory: No respiratory distress, Breath sounds nml Abdomen: Soft, No tenderness Extremities: No edema - Results Results: Laboratory Results WBC 12.9 x10^3/uL (4.8-10.8) H 01/04/20 04:55 RBC 3.33 10^6/uL (4.20-5.40) L 01/04/20 04:55 Hgb 8.4 g/dL (12.0-16.0) L 01/04/20 04:55 Hct 26.3 % (37.0-47.0) L 01/04/20 04:55 MCV 79.0 fL (81.0-99.0) L 01/04/20 04:55 MCH 25.2 pg (27.0-31.0) L 01/04/20 04:55 MCHC 31.9 g/dL (32.0-36.0) L 01/04/20 04:55 RDW 20.9 % (12.0-15.0) H 01/04/20 04:55 Plt Count 196 10^3/uL (130-450) 01/04/20 04:55 MPV 9.6 fL (7.9-10.8) 01/04/20 04:55 Reticulocyte % (Auto) 1.57 % (0.5-2.3) 01/02/20 12:50 Neut # (Auto) Not Reportable 01/04/20 04:55 Lymph # (Auto) Not Reportable 01/04/20 04:55 [place] # (Auto) Not Reportable 01/04/20 04:55 Eos # (Auto) Not Reportable 01/04/20 04:55 Baso # (Auto) Not Reportable 01/04/20 04:55 Absolute Nucleated RBC Not Reportable 01/04/20 04:55 Total Counted 100 01/04/20 04:55 Band Neuts % (Manual) 0 % (0-10) 01/04/20 04:55 Abnorm Lymph % (Manual) 0 % 01/04/20 04:55 Nucleated RBC % Not Reportable 01/04/20 04:55 Neutrophils # (Manual) 8.6 10^3/uL (1.5-6.6) H 01/04/20 04:55 Lymphocytes # (Manual) 3.2 10^3/uL (1.5-3.5) 01/04/20 04:55 Monocytes # (Manual) 1.0 10^3/uL (0.0-1.0) 01/04/20 04:55 Eosinophils # (Manual) 0.0 10^3/uL (0-0.7) 01/04/20 04:55 Basophils # (Manual) 0.0 10^3/uL (0-0.1) 01/04/20 04:55 Differential Comment MANUAL DIFFERENTIAL 01/04/20 04:55 Manual Slide Review Indicated 01/03/20 05:00 WBC Morphology NORMAL APPEARANCE (NORMAL) 01/04/20 04:55 Platelet Estimate NORMAL (130-450,000) (NORMAL) 01/04/20 04:55 Platelet Morphology NORMAL APPEARANCE (NORMAL) 01/04/20 04:55 RBC Morph Micro Appear 1+ ANISOCYTOSIS (NORMAL) 01/04/20 04:55 Absolute Retic 0.060 10^6/uL (0.020-0.110) 01/02/20 12:50 PT 19.7 secs (9.9-12.6) H 01/04/20 04:55 INR 1.8 (0.8-1.2) H 01/04/20 04:55 APTT 40.3 secs (24.9-33.3) H 01/02/20 12:50 Sodium 140 mmol/L (135-145) 01/04/20 04:55 Potassium 3.9 mmol/L (3.5-5.0) 01/04/20 04:55 Chloride 116 mmol/L (101-111) H 01/04/20 04:55 Carbon Dioxide 18 mmol/L (21-32) L 01/04/20 04:55 Anion Gap 6.0 (6-13) 01/04/20 04:55 BUN 31 mg/dL (6-20) H 01/04/20 04:55 Creatinine 1.2 mg/dL (0.4-1.0) H 01/04/20 04:55 Estimated GFR (MDRD) 43 (>89) L 01/04/20 04:55 Glucose 87 mg/dL (70-100) 01/04/20 04:55 Lactic Acid 1.8 mmol/L (0.5-2.2) 01/02/20 13:15 Calcium 8.7 mg/dL (8.5-10.3) 01/04/20 04:55 Phosphorus 3.8 mg/dL (2.5-4.6) 01/04/20 04:55 Magnesium 2.2 mg/dL (1.7-2.8) 01/04/20 04:55 Iron 33 ug/dL (28-170) 01/02/20 12:50 TIBC 241 ug/dL (250-450) L 01/02/20 12:50 % Saturation 14 % (20-50) L 01/02/20 12:50 Transferrin 172 mg/dL (192-382) L 01/02/20 12:50 Ferritin 61.7 ng/mL (11.0-306.8) 01/02/20 12:50 Total Bilirubin 2.2 mg/dL (0.2-1.0) H 01/04/20 04:55 AST 85 IU/L (10-42) H 01/04/20 04:55 ALT 29 IU/L (10-60) 01/04/20 04:55 Alkaline Phosphatase 483 IU/L (42-121) H 01/04/20 04:55 Lactate Dehydrogenase 186 IU/L (91-225) 01/02/20 12:50 Total Protein 5.0 g/dL (6.7-8.2) L 01/04/20 04:55 Albumin 2.0 g/dL (3.2-5.5) L 01/04/20 04:55 Globulin 3.0 g/dL (2.1-4.2) 01/04/20 04:55 Albumin/Globulin Ratio 0.7 (1.0-2.2) L 01/04/20 04:55 Lipase 39 U/L (22-51) 01/02/20 12:50 Vitamin B12 2143 pg/mL (180-914) H 01/02/20 12:50 Urine Color YELLOW 01/03/20 11:05 Urine Clarity CLOUDY (CLEAR) 01/03/20 11:05 Urine pH 5.0 PH (5.0-7.5) 01/03/20 11:05 Ur Specific [place] 1.020 (1.002-1.030) 01/03/20 11:05 Urine Protein NEGATIVE mg/dL (NEGATIVE) 01/03/20 11:05 Urine Glucose (UA) NEGATIVE mg/dL (NEGATIVE) 01/03/20 11:05 Urine Ketones NEGATIVE mg/dL (NEGATIVE) 01/03/20 11:05 Urine Occult Blood TRACE-INTA (NEGATIVE) 01/03/20 11:05 Urine Nitrite NEGATIVE (NEGATIVE) 01/03/20 11:05 Urine Bilirubin NEGATIVE (NEGATIVE) 01/03/20 11:05 Urine Urobilinogen 0.2 (NORMAL) E.U./dL (NORMAL) 01/03/20 11:05 Ur Leukocyte Esterase MODERATE (NEGATIVE) H 01/03/20 11:05 Urine RBC 0-5 /HPF (0-5) 01/03/20 11:05 Urine WBC >25 /HPF (0-5) H 01/03/20 11:05 Urine WBC Clumps PRESENT 01/03/20 11:05 Ur Squamous Epith Cells FEW Squamous (<= Few) 01/03/20 11:05 Urine Bacteria Many /HPF (None Seen) H 01/03/20 11:05 Urine Casts >50 Granular Casts /LPF 01/03/20 11:05 Ur Microscopic Review INDICATED 01/03/20 11:05 Urine Culture Comments INDICATED 01/03/20 11:05 Stl C. diff Tox B Gene NEGATIVE (NEGATIVE) 01/02/20 21:45 Blood Type A NEGATIVE 01/02/20 12:50 Antibody Screen NEGATIVE 01/02/20 12:50 - Procedures Procedures: Procedures CATARAC PHACOEMULS/ASPIR (04/30/14) INSERT LENS AT CATAR EXT (04/30/14) Sepsis Event Note (H) - Evaluation Current Stage of Sepsis: Sepsis Possible source of Sepsis: positive: GI tract/intra-abdominal - Sepsis Criteria Sepsis Criteria: MAP less than 65 mmHg
[2020-01-04] MEDS: metroNIDAZOLE 500 MG/100 ML 500 MG/100 ML BAG IV SCH ×3 (08:29→22:12)
[2020-01-04] MEDS: FERROUS SULFATE 325 MG TABLET PO SCH (08:32)
[2020-01-04] MEDS ORDERED: levoFLOXacin 750 MG/150 ML 750 MG/150 ML BAG IV SCH (09:00)
[2020-01-04] MEDS: MECLIZINE 12.5 MG TABLET PO SCH ×2 (09:44→21:06)
[2020-01-04] MEDS: BACLOFEN 10 MG TABLET PO SCH ×2 (09:45→21:06)
[2020-01-04] MEDS ORDERED: SODIUM CHLORIDE 0.9% 500 ML IV ONE (11:26)
[2020-01-04] MEDS: D5NS W/20 MEQ KCL 1,000 ML IV SCH ×2 (12:58→23:47)
[2020-01-04] MEDS: ACETAMINOPHEN 325 MG TABLET PO PRN (16:19)
[2020-01-05] MEDS ORDERED: LACTATED RINGERS 500 ML IV ONE ×2 (00:03→02:07)
--- NOTE | 2020-01-05 00:03 | PROVIDER PROGRESS NOTE ---
Subjective - General Admit Date: 01/02/20 - Review of Systems General: positive: No symptoms HEENT: positive: No symptoms Pulmonary: positive: No symptoms Cardiovascular: positive: No symptoms Gastrointestinal: positive: No symptoms, Other (No further BRBPR/Melena) - Other Other Information/Narrative: S/P partial bowel prep. No further bleeding. Objective - Patient Data Vital Signs: Vital Signs x48h Temp Pulse Resp BP Pulse Ox 01/04/20 23:47 36.3 C L 01/04/20 23:37 86 16 86/49 L 95 Intake & Output: Intake and Output Totals x24h 01/03/20 01/04/20 01/05/20 23:59 23:59 23:59 Intake Total 5559.333 4250.000 Output Total 800 700 Balance 4759.333 3550.000 - Lab Results Lab Results: 01/05/20 05:31 01/05/20 05:31 Other Lab Results: Lab Results x24hrs 01/04/20 01/04/20 01/04/20 Range/Units 04:55 04:55 04:55 WBC 12.9 H (4.8-10.8) x10^3/uL RBC 3.33 L (4.20-5.40) 10^6/uL Hgb 8.4 L (12.0-16.0) g/dL Hct 26.3 L (37.0-47.0) % MCV 79.0 L (81.0-99.0) fL MCH 25.2 L (27.0-31.0) pg MCHC 31.9 L (32.0-36.0) g/dL RDW 20.9 H (12.0-15.0) % Plt Count 196 (130-450) 10^3/uL MPV 9.6 (7.9-10.8) fL Neut # (Auto) Not Reportable Lymph # (Auto) Not Reportable [place] # (Auto) Not Reportable Eos # (Auto) Not Reportable Baso # (Auto) Not Reportable Absolute Nucleated RBC Not Reportable Total Counted 100 Band Neuts % (Manual) 0 (0 - 10) % Abnorm Lymph % (Manual) 0 % Nucleated RBC % Not Reportable Neutrophils # (Manual) 8.6 H (1.5-6.6) 10^3/uL Lymphocytes # (Manual) 3.2 (1.5-3.5) 10^3/uL Monocytes # (Manual) 1.0 (0.0-1.0) 10^3/uL Eosinophils # (Manual) 0.0 (0-0.7) 10^3/uL Basophils # (Manual) 0.0 (0-0.1) 10^3/uL Differential Comment MANUAL DIFFERENTIAL WBC Morphology NORMAL APPEARANCE (NORMAL) Platelet Estimate NORMAL (130-450,000) (NORMAL) Platelet Morphology NORMAL APPEARANCE (NORMAL) RBC Morph Micro Appear 1+ ANISOCYTOSIS (NORMAL) PT 19.7 H (9.9-12.6) secs INR 1.8 H (0.8-1.2) Sodium 140 (135-145) mmol/L Potassium 3.9 (3.5-5.0) mmol/L Chloride 116 H (101-111) mmol/L Carbon Dioxide 18 L (21-32) mmol/L Anion Gap 6.0 (6-13) BUN 31 H (6-20) mg/dL Creatinine 1.2 H (0.4-1.0) mg/dL Estimated GFR (MDRD) 43 L (>89) Glucose 87 (70-100) mg/dL Calcium 8.7 (8.5-10.3) mg/dL Phosphorus 3.8 (2.5-4.6) mg/dL Magnesium 2.2 (1.7-2.8) mg/dL Total Bilirubin 2.2 H (0.2-1.0) mg/dL AST 85 H (10-42) IU/L ALT 29 (10-60) IU/L Alkaline Phosphatase 483 H (42-121) IU/L Total Protein 5.0 L (6.7-8.2) g/dL Albumin 2.0 L (3.2-5.5) g/dL Globulin 3.0 (2.1-4.2) g/dL Albumin/Globulin Ratio 0.7 L (1.0-2.2) - Current Medications Current Medications: Current Medications Generic Name Dose Route Start Last Admin Trade Name Freq PRN Reason Stop Dose Admin Acetaminophen 650 mg 01/02/20 15:10 01/04/20 16:19 Tylenol PO 650 mg Q4HR PRN Administration Pain 1 to 4 Baclofen 5 mg 01/04/20 09:00 01/04/20 21:06 Lioresal PO 5 mg BID LUIS M Administration Ferrous Sulfate 325 mg 01/03/20 09:00 01/04/20 08:32 Feosol PO 325 mg DAILY LUIS M Administration Metronidazole 500 mg in 100 mls @ 100 mls/hr 01/04/20 08:30 01/04/20 22:55 Flagyl 500 Mg/100 Ml IV Infused TID LUIS M Infusion Levofloxacin 750 mg in 150 mls @ 100 mls/hr 01/04/20 09:00 01/04/20 11:18 Levaquin 750 Mg/150 Ml IV Infused Q48H LUIS M Infusion Potassium Chloride/Dextrose/Sod Cl 1,000 mls @ 100 mls/hr 01/04/20 12:00 01/04/20 23:47 IV 100 mls/hr .Q10H LUIS M Administration Meclizine HCl 12.5 mg 01/04/20 09:00 01/04/20 21:06 Antivert PO 12.5 mg BID LUIS M Administration Mineral Oil 1 applic 01/03/20 04:34 01/04/20 04:44 Cavilon TOP 1 applic PRN PRN Administration Skin Care Ondansetron HCl 4 mg 01/02/20 15:10 01/03/20 10:03 Zofran Inj IVP 4 mg Q6HR PRN Administration Nausea / Vomiting Pantoprazole Sodium 40 mg 01/02/20 16:00 01/04/20 06:09 Protonix IVP 40 mg QDAC LUIS M Administration Sodium Chloride 10 ml 01/02/20 15:10 01/04/20 06:10 Normal Saline Flush 0.9% IVP 10 ml PRN PRN Administration NEEDED PER PROVIDER ORDERS Sodium Chloride 10 ml 01/02/20 17:00 01/04/20 17:42 Normal Saline Flush 0.9% IVP Not Given 0100,0900,1700 [facility] - Physical Exam General Appearance: positive: No acute distress Abdomen: positive: Non-tender, No distention, Rebound. negative: Tenderness, Guarding Impression/Plan - Problem List Problem List: 84yo F with GIB in setting of presumptive colitis. MMP. H/H stable. No further hematochezia or melena. Defer endscopic evaluation at this time. Thank you for allowing us to participate with you in the care of this patient. Kindly call with any recurrent concerns.
[2020-01-05] MEDS: SODIUM CHLORIDE FLUSH 0.9% 10 ML SYRINGE IVP SCH ×3 (00:47→17:48)
[2020-01-05] MEDS: ACETAMINOPHEN 325 MG TABLET PO PRN ×2 (01:12→06:29)
[2020-01-05 05:56] LABS: BASOPHILS % (AUTO) 0.3 %; EOSINOPHILS # (AUTO) 0.1 10^3/uL (0.0-0.7); EOSINOPHILS % (AUTO) 0.9 %; HGB - HEMOGLOBIN 7.9 g/dL (12.0-16.0); LYMPHOCYTES # (AUTO) 2.1 10^3/uL (1.5-3.5); LYMPHOCYTES % (AUTO) 16.2 %; MEAN CORPUSCULAR HEMOGLOBIN 25.3 pg (27.0-31.0); MEAN CORPUSCULAR HGB CONC 32.1 g/dL (32.0-36.0); MEAN CORPUSCULAR VOLUME 78.8 fL (81.0-99.0); MEAN PLATELET VOLUME 9.5 fL (7.9-10.8); MONOCYTES # (AUTO) 1.5 10^3/uL (0.0-1.0); MONOCYTES % (AUTO) 11.9 %; NEUTROPHILS % (AUTO) 70.2 %; PLT - PLATELET COUNT 161 10^3/uL (130-450); RED BLOOD COUNT 3.12 10^6/uL (4.20-5.40); WHITE BLOOD COUNT 12.8 x10^3/uL (4.8-10.8)
[2020-01-05 06:11] LABS: ALBUMIN 1.7 g/dL (3.2-5.5); ALBUMIN/GLOBULIN RATIO 0.6 (1.0-2.2); BILIRUBIN,TOTAL 2.6 mg/dL (0.2-1.0); CALCIUM 8.3 mg/dL (8.5-10.3); CREATININE 1.3 mg/dL (0.4-1.0); TOTAL PROTEIN 4.6 g/dL (6.7-8.2)
[2020-01-05] MEDS: metroNIDAZOLE 500 MG/100 ML 500 MG/100 ML BAG IV SCH (06:17)
[2020-01-05] MEDS: PANTOPRAZOLE 40 MG VIAL IVP SCH (06:17)
[2020-01-05 06:20] LABS: PLATELET ESTIMATE, MANUAL NORMAL (130-450,000) (NORMAL); PLATELET MORPHOLOGY NORMAL APPEARANCE (NORMAL); RBC MORPHOLOGY (MULTIPLE) 2+ ANISOCYTOSIS (NORMAL)
--- NOTE | 2020-01-05 09:12 | PROVIDER PROGRESS NOTE ---
Assessment/Plan - Problem List (1) E. coli UTI Assessment/Plan: E. coli has been identified today in the urine culture. Blood cultures are negative to date. She is on Cipro and Flagyl for both her colitis and this UTI. Await sensitivities to adjust antibiotics. (2) Diverticulitis Assessment/Plan: Her white blood count was increasing from 11 to 12. C. difficile result is negative. Bacterial cultures of the stool are still pending. The Gen Surgeon will not do colonoscopy since bleeding has stopped. Because the WBC is not improving, she was changed on her empiric IV Zosyn to iv Flagyl and a floraquinolone. She was npo for a day, then tolerated clear liquids and today a pureed diet. (3) Colitis Assessment/Plan: The abdominal and pelvic CT showed stranding and fluid and thickening of the cecum, consistent with colitis. Management will be as above for diverticulitis. (4) JOSÉ MIGUEL (acute kidney injury) Assessment/Plan: BUN and creatinine increasing despite getting IV fluids. Her urine output however is poor. She is getting edematous with anasarca. Will insert Muse to relieve any obstruction which may be related to the cystitis (UTI). The admission CT abdomen pelvis did not show any evidence of stone, hydronephrosis. Will give a dose of Lasix IV, gingerly because of her "soft" blood pressure. Monitor I's and O's. (5) Elevated bilirubin Assessment/Plan: Her bilirubin and alk phos remain elevated. She is to get abdominal ultrasound today, to evaluate the bile duct (she had cholecystectomy. She is on iv Flagyl and a floraquinolone for poss obstruction. (6) GI bleed Qualifiers: GI bleed type/associated pathology: unspecified gastrointestinal hemorrhage type Qualified Code(s): K92.2 - Gastrointestinal hemorrhage, unspecified Assessment/Plan: No further maroon stools have been seen since she received her prep for possible colonoscopy. She was on Eliquis for Hx of PE, it was stopped at admission. Hemoglobin has somewhat plateaued. Follow CBC daily. Transfuse if hemoglobin under 7. (7) Anemia Qualifiers: Anemia type: unspecified type Qualified Code(s): D64.9 - Anemia, unspecified Assessment/Plan: She is on oral iron replacement. The GI bleeding has appeared to have stopped. Follow CBC daily. Transfuse if hemoglobin under 7. (8) Hx of essential hypertension Assessment/Plan: Her blood pressure meds have not been resumed since she is still running low blood pressures, presumably due to volume depletion. We will resume her p.o. meds for blood pressure when she is hypertensive. (9) Pulmonary hypertension Assessment/Plan: There was a history of this by echo done in 2018. An Echo was ordered to be done today for follow-up of the pulmonary pretension but also need this to evaluate why she has such anasarca and JOSÉ MIGUEL, this could be cardiorenal syndrome if there is systolic heart failure. (10) Spinal stenosis Assessment/Plan: This patient is bedbound and chair bound. No physical therapy was ordered. (11) Confusion Assessment/Plan: Improved. Daughter told her RN that she has this type of confusion whenever she gets a UTI Continue treating with IV fluids, IV antibiotics, calories, start clear liquids, (12) Sepsis Assessment/Plan: Resolved - Current Meds Current Meds: Current Medications Generic Name Dose Route Start Last Admin Trade Name Ernesto PRN Reason Stop Dose Admin Acetaminophen 650 mg 01/02/20 15:10 01/05/20 06:29 Tylenol PO 650 mg Q4HR PRN Administration Pain 1 to 4 Baclofen 5 mg 01/04/20 09:00 01/04/20 21:06 Lioresal PO 5 mg BID LUIS M Administration Ferrous Sulfate 325 mg 01/03/20 09:00 01/04/20 08:32 Feosol PO 325 mg DAILY LUIS M Administration Metronidazole 500 mg in 100 mls @ 100 mls/hr 01/04/20 08:30 01/05/20 07:43 Flagyl 500 Mg/100 Ml IV Infused TID LUIS M Infusion Levofloxacin 750 mg in 150 mls @ 100 mls/hr 01/04/20 09:00 01/04/20 11:18 Levaquin 750 Mg/150 Ml IV Infused Q48H LUIS M Infusion Potassium Chloride/Dextrose/Sod Cl 1,000 mls @ 100 mls/hr 01/04/20 12:00 01/05/20 03:57 IV 100 mls/hr .Q10H LUIS M Infusion Meclizine HCl 12.5 mg 01/04/20 09:00 01/04/20 21:06 Antivert PO 12.5 mg BID LUIS M Administration Mineral Oil 1 applic 01/03/20 04:34 01/04/20 04:44 Cavilon TOP 1 applic PRN PRN Administration Skin Care Ondansetron HCl 4 mg 01/02/20 15:10 01/03/20 10:03 Zofran Inj IVP 4 mg Q6HR PRN Administration Nausea / Vomiting Pantoprazole Sodium 40 mg 01/02/20 16:00 01/05/20 06:17 Protonix IVP 40 mg QDAC LUIS M Administration Sodium Chloride 10 ml 01/02/20 15:10 01/04/20 06:10 Normal Saline Flush 0.9% IVP 10 ml PRN PRN Administration NEEDED PER PROVIDER ORDERS Sodium Chloride 10 ml 01/02/20 17:00 01/05/20 00:47 Normal Saline Flush 0.9% IVP Not Given 0100,0900,1700 LUIS M - Lab Result Fish Bone Diagrams: 01/05/20 05:31 01/05/20 05:31 - Additional Planning My Orders: My Active Orders 01/04/20 08:30 metroNIDAZOLE 500 MG/100 ML [Flagyl 500 mg/100 ml] 500 mg in 100 ml IV TID 01/04/20 09:00 Baclofen [Lioresal] 5 mg PO BID Meclizine [Antivert] 12.5 mg PO BID levoFLOXacin 750 MG/150 ML [Levaquin 750 mg/150 ml] 750 mg in 150 ml IV Q48H 01/04/20 11:25 Straight Catheter Insertion [RC] ONCE 01/04/20 12:00 D5ns W/20 Meq KCl 1,000 ml IV 100 mls/hr 01/05/20 COVID-19 REFERENCE TEST Routine 01/05/20 00:01 NPO [DIET] 01/05/20 07:00 Abdomen Limited [US] Routine 01/05/20 08:00 Echo Transthoracic Complete [ECHO] Routine Subjective - Subjective Patient Reports: Feeling Better, Resting Comfortably, No Complaints Nursing Reports: Other (Poor urine output, yesterday she required straight cath for residual in the bladder of 380 cc. RN notices anasarca.) Objective Vital Signs: Vital Signs - 24 hr 01/04/20 01/04/20 01/04/20 09:27 11:00 16:00 Temperature 36.3 C L Heart Rate 85 Heart Rate [ Brachial] Heart Rate [ 80 98 Monitoring electrodes] Respiratory 16 14 Rate Blood Pressure [Left Brachial artery] Blood Pressure 111/73 82/49 L [Right Brachial artery] Blood Pressure [Right Radial artery] O2 Saturation 93 01/04/20 01/04/20 01/05/20 23:37 23:47 01:56 Temperature 36.3 C L Heart Rate Heart Rate [ Brachial] Heart Rate [ 86 72 Monitoring electrodes] Respiratory 16 Rate Blood Pressure 86/38 L [Left Brachial artery] Blood Pressure 86/49 L 78/26 L [Right Brachial artery] Blood Pressure [Right Radial artery] O2 Saturation 95 01/05/20 01/05/20 01/05/20 03:44 04:28 05:56 Temperature 36.4 C L Heart Rate Heart Rate [ Brachial] Heart Rate [ 82 93 Monitoring electrodes] Respiratory 14 Rate Blood Pressure 89/38 L 100/52 L [Left Brachial artery] Blood Pressure [Right Brachial artery] Blood Pressure [Right Radial artery] O2 Saturation 96 01/05/20 08:00 Temperature 36.5 C Heart Rate Heart Rate [ 73 Brachial] Heart Rate [ Monitoring electrodes] Respiratory 16 Rate Blood Pressure [Left Brachial artery] Blood Pressure [Right Brachial artery] Blood Pressure 72/38 L [Right Radial artery] O2 Saturation 94 Oxygen O2 Source Room air I&O (Last 24 Hrs): Intake and Output Totals x24h 01/03/20 01/04/20 01/05/20 23:59 23:59 23:59 Intake Total 5559.333 4250.000 1395 Output Total 800 700 60 Balance 4759.333 3550.000 1335 General: Alert HEENT: Mucous membr. moist/pink, Other (Multiple scaly red patches on the skin of the face) Neck: Supple, No JVD Neuro: Alert, Disoriented Cardiovascular: Regular rate, No murmurs Respiratory: No respiratory distress, Breath sounds nml Abdomen: Normal bowel sounds, Soft Extremities: No edema - Results Results: Laboratory Results WBC 12.8 x10^3/uL (4.8-10.8) H 01/05/20 05:31 RBC 3.12 10^6/uL (4.20-5.40) L 01/05/20 05:31 Hgb 7.9 g/dL (12.0-16.0) L 01/05/20 05:31 Hct 24.6 % (37.0-47.0) L 01/05/20 05:31 MCV 78.8 fL (81.0-99.0) L 01/05/20 05:31 MCH 25.3 pg (27.0-31.0) L 01/05/20 05:31 MCHC 32.1 g/dL (32.0-36.0) 01/05/20 05:31 RDW 21.0 % (12.0-15.0) H 01/05/20 05:31 Plt Count 161 10^3/uL (130-450) 01/05/20 05:31 MPV 9.5 fL (7.9-10.8) 01/05/20 05:31 Reticulocyte % (Auto) 1.57 % (0.5-2.3) 01/02/20 12:50 Neut # (Auto) 9.0 10^3/uL (1.5-6.6) H 01/05/20 05:31 Lymph # (Auto) 2.1 10^3/uL (1.5-3.5) 01/05/20 05:31 [place] # (Auto) 1.5 10^3/uL (0.0-1.0) H 01/05/20 05:31 Eos # (Auto) 0.1 10^3/uL (0.0-0.7) 01/05/20 05:31 Baso # (Auto) 0.0 10^3/uL (0.0-0.1) 01/05/20 05:31 Absolute Nucleated RBC 0.00 x10^3/uL 01/05/20 05:31 Total Counted 100 01/04/20 04:55 Band Neuts % (Manual) 0 % (0-10) 01/04/20 04:55 Abnorm Lymph % (Manual) 0 % 01/04/20 04:55 Nucleated RBC % 0.0 /100WBC 01/05/20 05:31 Neutrophils # (Manual) 8.6 10^3/uL (1.5-6.6) H 01/04/20 04:55 Lymphocytes # (Manual) 3.2 10^3/uL (1.5-3.5) 01/04/20 04:55 Monocytes # (Manual) 1.0 10^3/uL (0.0-1.0) 01/04/20 04:55 Eosinophils # (Manual) 0.0 10^3/uL (0-0.7) 01/04/20 04:55 Basophils # (Manual) 0.0 10^3/uL (0-0.1) 01/04/20 04:55 Differential Comment MANUAL DIFFERENTIAL 01/04/20 04:55 Manual Slide Review Indicated 01/05/20 05:31 WBC Morphology NORMAL APPEARANCE (NORMAL) 01/04/20 04:55 Platelet Estimate NORMAL (130-450,000) (NORMAL) 01/05/20 05:31 Platelet Morphology NORMAL APPEARANCE (NORMAL) 01/05/20 05:31 RBC Morph Micro Appear 2+ ANISOCYTOSIS (NORMAL) 01/05/20 05:31 Absolute Retic 0.060 10^6/uL (0.020-0.110) 01/02/20 12:50 PT 19.7 secs (9.9-12.6) H 01/04/20 04:55 INR 1.8 (0.8-1.2) H 01/04/20 04:55 APTT 40.3 secs (24.9-33.3) H 01/02/20 12:50 Sodium 136 mmol/L (135-145) 01/05/20 05:31 Potassium 3.6 mmol/L (3.5-5.0) 01/05/20 05:31 Chloride 114 mmol/L (101-111) H 01/05/20 05:31 Carbon Dioxide 16 mmol/L (21-32) L 01/05/20 05:31 Anion Gap 6.0 (6-13) 01/05/20 05:31 BUN 33 mg/dL (6-20) H 01/05/20 05:31 Creatinine 1.3 mg/dL (0.4-1.0) H 01/05/20 05:31 Estimated GFR (MDRD) 39 (>89) L 01/05/20 05:31 Glucose 129 mg/dL (70-100) H 01/05/20 05:31 Lactic Acid 1.8 mmol/L (0.5-2.2) 01/02/20 13:15 Calcium 8.3 mg/dL (8.5-10.3) L 01/05/20 05:31 Phosphorus 3.8 mg/dL (2.5-4.6) 01/04/20 04:55 Magnesium 2.2 mg/dL (1.7-2.8) 01/04/20 04:55 Iron 33 ug/dL (28-170) 01/02/20 12:50 TIBC 241 ug/dL (250-450) L 01/02/20 12:50 % Saturation 14 % (20-50) L 01/02/20 12:50 Transferrin 172 mg/dL (192-382) L 01/02/20 12:50 Ferritin 61.7 ng/mL (11.0-306.8) 01/02/20 12:50 Total Bilirubin 2.6 mg/dL (0.2-1.0) H 01/05/20 05:31 AST 74 IU/L (10-42) H 01/05/20 05:31 ALT 27 IU/L (10-60) 01/05/20 05:31 Alkaline Phosphatase 443 IU/L (42-121) H 01/05/20 05:31 Lactate Dehydrogenase 186 IU/L (91-225) 01/02/20 12:50 Total Protein 4.6 g/dL (6.7-8.2) L 01/05/20 05:31 Albumin 1.7 g/dL (3.2-5.5) L 01/05/20 05:31 Globulin 2.9 g/dL (2.1-4.2) 01/05/20 05:31 Albumin/Globulin Ratio 0.6 (1.0-2.2) L 01/05/20 05:31 Lipase 39 U/L (22-51) 01/02/20 12:50 Vitamin B12 2143 pg/mL (180-914) H 01/02/20 12:50 Urine Color YELLOW 01/03/20 11:05 Urine Clarity CLOUDY (CLEAR) 01/03/20 11:05 Urine pH 5.0 PH (5.0-7.5) 01/03/20 11:05 Ur Specific [place] 1.020 (1.002-1.030) 01/03/20 11:05 Urine Protein NEGATIVE mg/dL (NEGATIVE) 01/03/20 11:05 Urine Glucose (UA) NEGATIVE mg/dL (NEGATIVE) 01/03/20 11:05 Urine Ketones NEGATIVE mg/dL (NEGATIVE) 01/03/20 11:05 Urine Occult Blood TRACE-INTA (NEGATIVE) 01/03/20 11:05 Urine Nitrite NEGATIVE (NEGATIVE) 01/03/20 11:05 Urine Bilirubin NEGATIVE (NEGATIVE) 01/03/20 11:05 Urine Urobilinogen 0.2 (NORMAL) E.U./dL (NORMAL) 01/03/20 11:05 Ur Leukocyte Esterase MODERATE (NEGATIVE) H 01/03/20 11:05 Urine RBC 0-5 /HPF (0-5) 01/03/20 11:05 Urine WBC >25 /HPF (0-5) H 01/03/20 11:05 Urine WBC Clumps PRESENT 01/03/20 11:05 Ur Squamous Epith Cells FEW Squamous (<= Few) 01/03/20 11:05 Urine Bacteria Many /HPF (None Seen) H 01/03/20 11:05 Urine Casts >50 Granular Casts /LPF 01/03/20 11:05 Ur Microscopic Review INDICATED 01/03/20 11:05 Urine Culture Comments INDICATED 01/03/20 11:05 Stl C. diff Tox B Gene NEGATIVE (NEGATIVE) 01/02/20 21:45 Blood Type A NEGATIVE 01/02/20 12:50 Antibody Screen NEGATIVE 01/02/20 12:50 - Procedures Procedures: Procedures CATARAC PHACOEMULS/ASPIR (04/30/14) INSERT LENS AT CATAR EXT (04/30/14) Sepsis Event Note (H) - Evaluation Current Stage of Sepsis: Sepsis Possible source of Sepsis: positive: GI tract/intra-abdominal - Sepsis Criteria Sepsis Criteria: MAP less than 65 mmHg
[2020-01-05] MEDS ORDERED: FUROSEMIDE 40 MG/4 ML VIAL IVP STA (09:13)
[2020-01-05] MEDS ORDERED: D5NS W/20 MEQ KCL 1,000 ML IV SCH (09:13)
[2020-01-05] MEDS: BACLOFEN 10 MG TABLET PO SCH ×2 (09:53→20:40)
[2020-01-05] MEDS: FERROUS SULFATE 325 MG TABLET PO SCH (09:53)
[2020-01-05] MEDS: MECLIZINE 12.5 MG TABLET PO SCH ×2 (09:53→20:40)
[2020-01-05] MEDS: metroNIDAZOLE 250 MG TABLET PO SCH ×2 (11:55→17:48)
--- NOTE | 2020-01-05 13:06 | Ultrasound Report ---
PROCEDURE: Abdomen Limited INDICATIONS: elevated bili and alk phos TECHNIQUE: Real-time focused scanning was performed of the abdomen, with image documentation. COMPARISON: CT chest angiogram, 07/09/2019 FINDINGS: Liver is normal in size and demonstrates heterogeneously closed echotexture. Gallbladder i s surgically absent. Common bile duct is dilated measuring 11 mm. Visualized pancreas is normal. Righ t kidney is normal in size without hydronephrosis. Note is made of IMPRESSION: 1. Heterogeneously increased hepatic echotexture consistent with hepatocellular disease. 2. No focal hepatic mass identified. 3. Dilated common bile duct measuring 11 mm. The patient has had cholecystectomy. 4. Visualized pancreas is normal. Reviewed by: Zully Chris MD on 01/05/2020 1:04 PM PDT Approved by: Zully Chris MD on 01/05/2020 1:04 PM PDT Station ID: [id number]
[2020-01-05] MEDS ORDERED: SODIUM CHLORIDE 0.9% 1,000 ML IV ONE (17:24)
[2020-01-05] MEDS: cefTRIAXone 1 GM in SODIUM CHLORIDE 0.9% MINIBAG 100 ML IV SCH (18:47)
[2020-01-06] MEDS: SODIUM CHLORIDE FLUSH 0.9% 10 ML SYRINGE IVP SCH ×3 (00:22→18:32)
[2020-01-06] MEDS: PANTOPRAZOLE 40 MG VIAL IVP SCH (06:00)
[2020-01-06] MEDS: MECLIZINE 12.5 MG TABLET PO SCH ×2 (08:01→21:07)
[2020-01-06] MEDS: FERROUS SULFATE 325 MG TABLET PO SCH (08:01)
[2020-01-06] MEDS: metroNIDAZOLE 250 MG TABLET PO SCH ×3 (08:01→18:36)
[2020-01-06] MEDS: BACLOFEN 10 MG TABLET PO SCH ×2 (08:01→21:07)
[2020-01-06] MEDS: cefTRIAXone 1 GM in SODIUM CHLORIDE 0.9% MINIBAG 100 ML IV SCH (08:02)
[2020-01-06] MEDS ORDERED: SODIUM CHLORIDE 0.9% 500 ML IV ONE ×2 (09:11→15:56)
--- NOTE | 2020-01-06 09:18 | XRAY Report ---
PROCEDURE: Chest 1 View X-Ray INDICATIONS: sob TECHNIQUE: One view of the chest was acquired. COMPARISON: Chest x-ray 08/14/2019 FINDINGS: Surgical changes and devices: Thoracolumbar fixation rods are present. Lungs and pleura: Increased pulmonary vascularity is present. There is trace blunting of the costoph renic angles. Mediastinum: Mediastinal contours appear normal. Heart size is enlarged. Bones and chest wall: No suspicious bony lesions. Overlying soft tissues appear unremarkable. IMPRESSION: Increased vascularity and trace blunting of the costophrenic angle suggestive of edema with trace eff usions. Reviewed by: Namita Calvert MD on 01/06/2020 9:16 AM PDT Approved by: Namita Calvert MD on 01/06/2020 9:16 AM PDT Station ID: [id number]
[2020-01-06] MEDS ORDERED: MIDODRINE 2.5 MG TABLET PO SCH (10:00)
--- NOTE | 2020-01-06 10:15 | PROCEDURE REPORT ---
Hospitalist Procedure Note - Procedure Note Procedure Note: Hospitalist called me and requested a PICC placement for this patient. This patient is here with UTI, possible sepsis and have poor IV access. Informed consent obtained. Patient was made aware of benefits and risks associated with PICC. She agrees to proceed. RN in the room to assist. All sterile precautions observed. DL 5 Vincent[place] PICC line inserted under US guidance. first attempt in the right arm unsuccessful. 2nd attempt in the left successful. Basilic vein insertion under US. Patient tolerated the procedure well.
--- NOTE | 2020-01-06 10:39 | XRAY Report ---
PROCEDURE: Chest for Line Placement INDICATIONS: Check for PICC line placement TECHNIQUE: One view of the chest was acquired. COMPARISON: CXR 01/06/2020 at 0805 hours, 09/12/2019. Lung bases on CT 01/02/2020. CT pulmonary angiogr am 07/09/2019. FINDINGS: Surgical changes and devices: Left-sided PICC with the catheter tip terminating in the mid to lower t hird of the SVC. Cholecystectomy clips. Lungs and pleura: No significant pleural effusions. No pneumothorax. Diffuse prominence of the inter stitial markings which is slightly more prominent than the prior CXR but may be related to technique. Mediastinum: Mediastinal contours appear unchanged. Heart size is within normal limits. Bones and chest wall: Thoracolumbar spine hardware partially visualized. No suspicious bony lesions. Overlying soft tissues appear unremarkable. IMPRESSION: Left-sided PICC in satisfactory position. No pneumothorax. Diffuse prominence of the interstitial markings which may be due to emphysematous change/fibrosis wit h superimposed pulmonary edema. Reviewed by: Rolf Morse MD on 01/06/2020 10:38 AM PDT Approved by: Rolf Morse MD on 01/06/2020 10:38 AM PDT Station ID: [id number]
[2020-01-06 11:23] LABS: BASOPHILS % (AUTO) 0.4 %; EOSINOPHILS % (AUTO) 1.3 %; HGB - HEMOGLOBIN 8.3 g/dL (12.0-16.0); LYMPHOCYTES % (AUTO) 12.2 %; MEAN CORPUSCULAR HEMOGLOBIN 25.2 pg (27.0-31.0); MEAN CORPUSCULAR HGB CONC 31.3 g/dL (32.0-36.0); MEAN CORPUSCULAR VOLUME 80.5 fL (81.0-99.0); MEAN PLATELET VOLUME 9.7 fL (7.9-10.8); MONOCYTES % (AUTO) 10.5 %; NEUTROPHILS % (AUTO) 74.8 %; PLT - PLATELET COUNT 162 10^3/uL (130-450); RED BLOOD COUNT 3.29 10^6/uL (4.20-5.40); RED CELL DISTRIBUTION WIDTH 21.2 % (12.0-15.0); WHITE BLOOD COUNT 15.8 x10^3/uL (4.8-10.8)
[2020-01-06] MEDS: LACTOBACILLUS RHAMNOSUS GG CAPSULE PO SCH (11:38)
[2020-01-06] MEDS: SODIUM CHLORIDE FLUSH 0.9% 10 ML SYRINGE IVP PRN (11:39)
[2020-01-06 11:47] LABS: ALBUMIN 1.6 g/dL (3.2-5.5); ALBUMIN/GLOBULIN RATIO 0.5 (1.0-2.2); BILIRUBIN,TOTAL 2.7 mg/dL (0.2-1.0); CALCIUM 8.2 mg/dL (8.5-10.3); CREATININE 1.4 mg/dL (0.4-1.0); TOTAL PROTEIN 4.6 g/dL (6.7-8.2)
[2020-01-06 12:18] LABS: ABNORMAL LYMPHS % (MANUAL) 0 %; BAND NEUTROPHILS % (MANUAL) 0 %
[2020-01-06 12:20] LABS: DIFFERENTIAL COMMENT MANUAL DIFFERENTIAL; EOSINOPHILS # (MANUAL) 0.5 10^3/uL (0-0.7); LYMPHOCYTES # (MANUAL) 2.1 10^3/uL (1.5-3.5); LYMPHOCYTES % (MANUAL) 13 %; MONOCYTES # (MANUAL) 1.1 10^3/uL (0.0-1.0); PLATELET ESTIMATE, MANUAL NORMAL (130-450,000) (NORMAL); PLATELET MORPHOLOGY NORMAL APPEARANCE (NORMAL)
--- NOTE | 2020-01-06 12:25 | PROVIDER PROGRESS NOTE ---
Subjective - Prog Note Date Prog Note Date: 01/06/20 - Subjective Pt reports feeling: Improved Subjective: Patient report she feels fine, she denies chest pain or abdominal pain or fever or chill. Current Medications - Current Medications Current Medications: Active Medications Acetaminophen (Tylenol) 650 mg PO Q4HR PRN PRN Reason: Pain 1 to 4 Last Admin: 01/05/20 06:29 Dose: 650 mg Documented by: Albuterol () 2.5 mg INH RTQ4H PRN PRN Reason: Wheezing Albuterol/Ipratropium (Duoneb) 3 ml INH RTQID PRN PRN Reason: Shortness of Air/Wheezing Baclofen (Lioresal) 5 mg PO BID [facility] Last Admin: 01/06/20 08:01 Dose: 5 mg Documented by: Ferrous Sulfate (Feosol) 325 mg PO DAILY [facility] Last Admin: 01/06/20 08:01 Dose: 325 mg Documented by: Heparin Sodium (Beef Lung) () 30 - 50 unit IVP PRN PRN PRN Reason: Central Line Protocol (<24 hr) Last Admin: 01/06/20 11:39 Dose: 100 unit Documented by: Ceftriaxone Sodium 1 gm/ (Sodium Chloride) 100 mls @ 200 mls/hr IV DAILY [facility] Last Infusion: 01/06/20 11:29 Dose: Infused Documented by: Lactobacillus Rhamnosus (Culturelle) 1 cap PO DAILY [facility] Last Admin: 01/06/20 11:38 Dose: 1 cap Documented by: Meclizine HCl (Antivert) 12.5 mg PO BID [facility] Last Admin: 01/06/20 08:01 Dose: 12.5 mg Documented by: Metronidazole (Flagyl) 250 mg PO TIDWM [facility] Stop: 01/08/20 23:55 Last Admin: 01/06/20 11:38 Dose: 250 mg Documented by: Midodrine () 2.5 mg PO TID [facility] Mineral Oil (Cavilon) 1 applic TOP PRN PRN PRN Reason: Skin Care Last Admin: 01/04/20 04:44 Dose: 1 applic Documented by: Ondansetron HCl (Zofran Inj) 4 mg IVP Q6HR PRN PRN Reason: Nausea / Vomiting Last Admin: 01/03/20 10:03 Dose: 4 mg Documented by: Pantoprazole Sodium (Protonix) 40 mg IVP QDAC [facility] Last Admin: 01/06/20 06:00 Dose: 40 mg Documented by: Sodium Chloride (Normal Saline Flush 0.9%) 10 ml IVP PRN PRN PRN Reason: NEEDED PER PROVIDER ORDERS Last Admin: 01/06/20 11:39 Dose: 20 ml Documented by: Sodium Chloride (Normal Saline Flush 0.9%) 10 ml IVP 0100,0900,1700 [facility] Last Admin: 01/06/20 08:02 Dose: 10 ml Documented by: Zolpidem Tartrate (Ambien) 5 mg PO QPM PRN PRN Reason: Insomnia Acetaminophen 500 mg Q8HR PRN 09/12/19 Apixaban [Eliquis] 5 mg PO BID 09/12/19 Famotidine 20 mg PO BID 09/12/19 Losartan Potassium 25 mg PO DAILY 09/12/19 Ondansetron HCl [Zofran] 4 mg PO Q6HR PRN 09/12/19 Simvastatin [Zocor] 40 mg PO DAILY 09/12/19 traMADol [Ultram] 50 mg PO Q6HR PRN 09/12/19 Albuterol Sulf [Ventolin Hfa Inhaler] 2 puffs PO Q4H PRN 01/02/20 Baclofen 5 mg PO BID 01/02/20 Ferrous Gluconate 240 mg PO DAILY 01/02/20 L.acid/L.casei/B.bif/B.magan/Fos [Probiotic Blend Capsule] 1 cap PO BID 01/02/20 Meclizine [Antivert] 12.5 mg PO BID 01/02/20 Senna [Senokot] 17.2 mg PO DAILY 01/02/20 carvediloL [Coreg] 3.125 mg PO DAILY 01/02/20 Objective - Vital Signs/Intake & Output Vital Signs: Vital Signs x48h Temp Pulse Pulse Pulse Resp BP BP 01/06/20 12:07 36.4 C L 91 16 104/46 L 01/06/20 11:33 93 01/06/20 08:20 36.7 C 98 17 87/51 L 01/06/20 07:30 99 18 01/06/20 05:00 36.5 C 83 16 92/39 L BP Pulse Ox 01/06/20 12:07 91 L 01/06/20 11:33 104/46 L 01/06/20 08:20 92 01/06/20 07:30 01/06/20 05:00 93 Intake & Output: Intake & Output 01/03/20 01/04/20 01/05/20 01/06/20 23:59 23:59 23:59 23:59 Intake Total 5559.333 4250.000 3878.667 981.333 Output Total 800 700 785 100 Balance 4759.333 3550.000 3093.667 881.333 - Objective General Appearance: positive: No acute distress, Alert. negative: Lethargic Eyes Bilateral: positive: Normal inspection, PERRL, No lid inflammation ENT: positive: ENT inspection nml, Pharynx nml. negative: Purulent nasal drainage Neck: positive: Nml inspection, Thyroid nml, No JVD, Trachea midline. negative: Thyromegaly, Stiff neck, Tracheal deviation Respiratory: positive: Chest non-tender, No respiratory distress. negative: Wheezes, Rales Cardiovascular: positive: Irregularly irregular, Systolic murmur. negative: No murmur, Tachycardia, Bradycardia, Diastolic murmur Peripheral Pulses: 2+ Radial (R), 2+ Radial (L), 2+ Dorsalis pedis (R), 2+ Dorsalis pedis (L) Abdomen: positive: Non-tender, No organomegaly, No distention, Other (hypoactive bowel sound). negative: Nml bowel sounds, Tenderness, Guarding, Rebound Back: positive: Nml inspection. negative: CVA tenderness (R), CVA tenderness (L) Skin: positive: Color nml, No rash, Warm, Dry, Other (anasarca in her four extremity). negative: Cyanosis, Diaphoresis, Pallor - Lab Results Fish Bones: 01/06/20 11:15 01/06/20 11:15 Other Labs: Lab Results x24hrs 01/06/20 01/06/20 01/06/20 Range/Units 11:15 11:15 11:15 WBC (4.8-10.8) x10^3/uL RBC (4.20-5.40) 10^6/uL Hgb (12.0-16.0) g/dL Hct (37.0-47.0) % MCV (81.0-99.0) fL MCH (27.0-31.0) pg MCHC (32.0-36.0) g/dL RDW (12.0-15.0) % Plt Count (130-450) 10^3/uL MPV (7.9-10.8) fL Neut # (Auto) Lymph # (Auto) [place] # (Auto) Eos # (Auto) Baso # (Auto) Absolute Nucleated RBC Total Counted Band Neuts % (Manual) (0 - 10) % Abnorm Lymph % (Manual) % Nucleated RBC % Neutrophils # (Manual) (1.5-6.6) 10^3/uL Lymphocytes # (Manual) (1.5-3.5) 10^3/uL Monocytes # (Manual) (0.0-1.0) 10^3/uL Eosinophils # (Manual) (0-0.7) 10^3/uL Basophils # (Manual) (0-0.1) 10^3/uL Differential Comment Manual Slide Review WBC Morphology (NORMAL) Platelet Estimate (NORMAL) Platelet Morphology (NORMAL) RBC Morph Micro Appear (NORMAL) Sodium (135-145) mmol/L Potassium (3.5-5.0) mmol/L Chloride (101-111) mmol/L Carbon Dioxide (21-32) mmol/L Anion Gap (6-13) BUN (6-20) mg/dL Creatinine (0.4-1.0) mg/dL Estimated GFR (MDRD) (>89) Glucose (70-100) mg/dL Lactic Acid 1.9 (0.5-2.2) mmol/L Calcium (8.5-10.3) mg/dL Total Bilirubin (0.2-1.0) mg/dL AST (10-42) IU/L ALT (10-60) IU/L Alkaline Phosphatase (42-121) IU/L Troponin I High Sens 25.5 H* (2.3-14.8) ng/L Total Protein (6.7-8.2) g/dL Albumin (3.2-5.5) g/dL Globulin (2.1-4.2) g/dL Albumin/Globulin Ratio (1.0-2.2) TSH (0.34-5.60) uIU/mL Cortisol AM Sample 16.5 ug/dL 01/06/20 01/06/20 01/06/20 Range/Units 11:15 11:15 11:15 WBC 15.8 H (4.8-10.8) x10^3/uL RBC 3.29 L (4.20-5.40) 10^6/uL Hgb 8.3 L (12.0-16.0) g/dL Hct 26.5 L (37.0-47.0) % MCV 80.5 L (81.0-99.0) fL MCH 25.2 L (27.0-31.0) pg MCHC 31.3 L (32.0-36.0) g/dL RDW 21.2 H (12.0-15.0) % Plt Count 162 (130-450) 10^3/uL MPV 9.7 (7.9-10.8) fL Neut # (Auto) Not Reportable Lymph # (Auto) Not Reportable [place] # (Auto) Not Reportable Eos # (Auto) Not Reportable Baso # (Auto) Not Reportable Absolute Nucleated RBC Not Reportable Total Counted 100 Band Neuts % (Manual) 0 (0 - 10) % Abnorm Lymph % (Manual) 0 % Nucleated RBC % Not Reportable Neutrophils # (Manual) 12.2 H (1.5-6.6) 10^3/uL Lymphocytes # (Manual) 2.1 (1.5-3.5) 10^3/uL Monocytes # (Manual) 1.1 H (0.0-1.0) 10^3/uL Eosinophils # (Manual) 0.5 (0-0.7) 10^3/uL Basophils # (Manual) 0.0 (0-0.1) 10^3/uL Differential Comment MANUAL DIFFERENTIAL Manual Slide Review Indicated WBC Morphology NORMAL APPEARANCE (NORMAL) Platelet Estimate NORMAL (130-450,000) (NORMAL) Platelet Morphology NORMAL APPEARANCE (NORMAL) RBC Morph Micro Appear 1+ HYPOCHROMASIA (NORMAL) Sodium 134 L (135-145) mmol/L Potassium 3.8 (3.5-5.0) mmol/L Chloride 111 (101-111) mmol/L Carbon Dioxide 14 L (21-32) mmol/L Anion Gap 9.0 (6-13) BUN 32 H (6-20) mg/dL Creatinine 1.4 H (0.4-1.0) mg/dL Estimated GFR (MDRD) 36 L (>89) Glucose 132 H (70-100) mg/dL Lactic Acid (0.5-2.2) mmol/L Calcium 8.2 L (8.5-10.3) mg/dL Total Bilirubin 2.7 H (0.2-1.0) mg/dL AST 68 H (10-42) IU/L ALT 27 (10-60) IU/L Alkaline Phosphatase 435 H (42-121) IU/L Troponin I High Sens (2.3-14.8) ng/L Total Protein 4.6 L (6.7-8.2) g/dL Albumin 1.6 L (3.2-5.5) g/dL Globulin 3.0 (2.1-4.2) g/dL Albumin/Globulin Ratio 0.5 L (1.0-2.2) TSH 1.68 (0.34-5.60) uIU/mL Cortisol AM Sample ug/dL 01/05/20 Range/Units 18:41 WBC (4.8-10.8) x10^3/uL RBC (4.20-5.40) 10^6/uL Hgb (12.0-16.0) g/dL Hct (37.0-47.0) % MCV (81.0-99.0) fL MCH (27.0-31.0) pg MCHC (32.0-36.0) g/dL RDW (12.0-15.0) % Plt Count (130-450) 10^3/uL MPV (7.9-10.8) fL Neut # (Auto) Lymph # (Auto) [place] # (Auto) Eos # (Auto) Baso # (Auto) Absolute Nucleated RBC Total Counted Band Neuts % (Manual) (0 - 10) % Abnorm Lymph % (Manual) % Nucleated RBC % Neutrophils # (Manual) (1.5-6.6) 10^3/uL Lymphocytes # (Manual) (1.5-3.5) 10^3/uL Monocytes # (Manual) (0.0-1.0) 10^3/uL Eosinophils # (Manual) (0-0.7) 10^3/uL Basophils # (Manual) (0-0.1) 10^3/uL Differential Comment Manual Slide Review WBC Morphology (NORMAL) Platelet Estimate (NORMAL) Platelet Morphology (NORMAL) RBC Morph Micro Appear (NORMAL) Sodium (135-145) mmol/L Potassium (3.5-5.0) mmol/L Chloride (101-111) mmol/L Carbon Dioxide (21-32) mmol/L Anion Gap (6-13) BUN (6-20) mg/dL Creatinine (0.4-1.0) mg/dL Estimated GFR (MDRD) (>89) Glucose (70-100) mg/dL Lactic Acid 2.1 (0.5-2.2) mmol/L Calcium (8.5-10.3) mg/dL Total Bilirubin (0.2-1.0) mg/dL AST (10-42) IU/L ALT (10-60) IU/L Alkaline Phosphatase (42-121) IU/L Troponin I High Sens (2.3-14.8) ng/L Total Protein (6.7-8.2) g/dL Albumin (3.2-5.5) g/dL Globulin (2.1-4.2) g/dL Albumin/Globulin Ratio (1.0-2.2) TSH (0.34-5.60) uIU/mL Cortisol AM Sample ug/dL Sepsis Event Note (H) - Evaluation Current Stage of Sepsis: Sepsis Possible source of Sepsis: positive: GI tract/intra-abdominal - Sepsis Criteria Sepsis Criteria: MAP less than 65 mmHg Assessment/Plan - Problem List (1) Hypotension Impression: She still has systolic blood pressure at 87 in the morning. Patient blood work TSH and cortisol level is at normal range. the patient CXR show increase pulmonary edema with trace effusions and skin with anasarca. but at the same time pt has lower urine output only 225 ml today with dark urine, and creatinine continue increase. Clinic pt has dry mouth and dehydration, and ask nurse for drinking. at this point, we give pt low dosage of IV fluid, closely lab monitor. add midodrive to pt, and vital monitor closely. (2)hypoalbuminemia pt has 1.6 albumin, and She present specially upper extremity with anasarca. Meanwhile, Patient has elevated liver enzyme, total bili and alkaline phosphatase. Ultrasound show patient have 11 mm common bile duct. we will order MRCP further evaluation, order Albumin, and lab monitor (3)elevated liver enzyme she Continue elevated liver enzyme, and dilated common bile duct at 11mm, and with hepatocellular disease, and hypoalbuminemia, hypotension, elevated CEA, and nausea and vomiting, will order MRCP, will followup, then we may consult with surgeon again. (4) E. coli UTI Assessment/Plan: Patient has increased WBC today. Put new PICC line for patient patient is hard to find insert of IV port. E. coli has been identified yesterday in the urine culture, and sensitive to Rocephin. increase Rocephin to 2 gram daily. Blood cultures are negative to date. (5) Diverticulitis Assessment/Plan: Her white blood count was increasing 15.8 C. difficile result is negative. Bacterial cultures of the stool are still pen ding. New occult test is negative for blood, The Gen Surgeon will not do colonoscopy since bleeding has stopped. continue Rocephin and Flagyl. (6) Colitis Assessment/Plan: The abdominal and pelvic CT showed stranding and fluid and thickening of the cecum, consistent with colitis. Management with antibiotics Rocephin and Flagyl. (7) JOSÉ MIGUEL (acute kidney injury) Assessment/Plan: BUN and creatinine increasing despite getting IV fluids. Her urine output however continue be poor and dark, today she only had 225 cc, and the same time She is getting edematous with anasarca and pulmonary edema with trace pleural effusion. pt also has lower BP. pt also present nausea and vomiting. give pt gently IVF for pt's worsening renal function and lab and vital closely monitor.Monitor I's and O's and vital signs, and lab monitor. pt had PICC line on today. (8) GI bleed New occult blood test show negative for blood. No further maroon stools have been seen. Hemoglobin has somewhat plateaued and slight increased. Follow lab monitor and Transfuse if hemoglobin under 7. (9) Anemia continue oral iron replacement.The GI bleeding have stopped. lab monitor. Transfuse if hemoglobin under 7. (2) GI bleed Qualifiers: GI bleed type/associated pathology: unspecified gastrointestinal hemorrhage type Qualified Code(s): K92.2 - Gastrointestinal hemorrhage, unspecified
[2020-01-06] MEDS: MIDODRINE 2.5 MG TABLET PO SCH ×2 (13:15→21:07)
[2020-01-06] MEDS: ALBUMIN 25% 12.5 GM/50 ML VIAL IV SCH ×2 (14:12→21:08)
[2020-01-06] MEDS: SODIUM CHLORIDE 0.9% 1,000 ML IV SCH ×2 (15:35→22:49)
--- NOTE | 2020-01-06 16:11 | ADVANCE CARE PLANNING NOTE ---
Advance Care Planning - Planning Encounter Date: 01/06/20 Time: 16:08 Purpose: advance care plan Parties in Attendance: pt's daughter Nasreen Morales by the phone and me Decisional Capacity of the Patient: pt has a very poor historian, underline of dementia, she can not make her own decision, her daughter Nasreen Morales is her decision maker. - Diagnosis for Encounter (2) GI bleed Qualifiers: GI bleed type/associated pathology: unspecified gastrointestinal hemorrhage type Qualified Code(s): K92.2 - Gastrointestinal hemorrhage, unspecified - Encounter Subjective/Patient's Story: I called patient's daughter Nasreen Update patient's medical condition and Discussed care plan. Sunday state patient talked with her before she do not want intubation and she does not want any CPR, so patient CODE STATUS will change to the DNR/DNI. Patient continued to have hypotension, Worsening kidney function and urine output, Also patient has anasarca and pulmonary edema with pleural effusion. Patient also has elevated liver enzyme and hypoalbuminemia, elevated tumor marker CEA. Patient also has colitis, diverticulitis and a UTI and GI bleed.Patient also has a right side heart failure with pulmonary hypertension. Patient has very poor appetite, Nausea and vomiting. Patient condition de teriorated. Sunday reported she is in [facility] but she will come back tomorrow afternoon in the hospital. She would like to talk with palliative care, and further care plan as well. Goals of Care: quality life and advance care plan for pt Plan: change code status from full code to DNR/DNI code status, and followup with palliative care and further advanced care plan such as hospice care. Code Status: Do Not Attempt Resuscitation Time spent on advance care plannin
--- NOTE | 2020-01-06 18:35 | MRI Report ---
PROCEDURE: MRCP W/O INDICATIONS: elevated liver enzyme and dilated common bile duct CONTRAST: None TECHNIQUE: Coronal ultra fast SE through the abdomen, axial 2-D spoiled GE in- and [id number], and breath-hold T2 FSE with fat saturation through the biliary system and pancreas. Oblique coronal and axial thin- slice ultra fast SE, radial thick-slab ultra fast SE centered on the extrahepatic bile ducts. 3-D re constructed images were unable to be acquired. COMPARISON: CT abdomen pelvis 01/02/2020 FINDINGS: Image quality: Significantly limited exam secondary to motion. Pancreas and biliary system: Intra-hepatic biliary ducts are non dilated. There is mild prominence of the common bile duct measuring approximately 11 mm. It is noted the gallbladder has been removed. Pancreas is normal in morphology, without adjacent soft tissue edema. Pancreatic duct is normal in caliber, without developmental anomalies. Other solid organs: Liver and spleen are normal in size. No adrenal nodules. Both kidneys are norm al in size, without hydronephrosis. Nodes and vessels: No retroperitoneal or mesenteric adenopathy by size criteria. Aorta and inferior vena cava are normal in size. Bowel and peritoneum: Unenhanced bowel loops are suboptimally evaluated secondary to motion. However , there is questionable appearance of thickening within the right colon. Lung bases: No basal pleural effusions. Heart size is normal. Bones and soft tissues: No ventral hernias. Bone marrow is of normal overall signal. IMPRESSION: 1. Significantly limited exam secondary to motion and technique. 2. Mild prominence of common bile duct without gross filling defect identified. This is suspected to be secondary to postcholecystectomy sequela. 3. Questionable appearance of right colonic thickening. It is suboptimally evaluated as noted above. However, cecal and ascending colonic thickening or noted on CT abdomen and pelvis of 01/02/2020. Reviewed by: Namita Calvert MD on 01/06/2020 6:34 PM PDT Approved by: Namita Calvert MD on 01/06/2020 6:34 PM PDT Station ID: [id number]
--- NOTE | 2020-01-06 20:52 | Ultrasound Report ---
PROCEDURE: Retroperitoneal INDICATIONS: JOSÉ MIGUEL, and lower abdominal pain TECHNIQUE: Real-time scanning was performed of the retroperitoneal organs, with image documentation. COMPARISON: None. FINDINGS: Kidneys: Kidneys are normal in size. Right kidney measures 10.4 cm long; left kidney measures 10.4 cm long. Right renal cortical thickness is 1.1 cm; left renal cortical thickness is 0.7 cm. There is a focus of hypoechogenicity within the right kidney measuring 15 x 13 x 20 mm. Nonobstructing calcif ications also noted within the right kidney measuring 4 x 4 by 5 mm. Bladder: Prevoid volume measures 3 44 cc. Postvoid residual equals 0 cc. No ureteral jets are identif ied. Miscellaneous: Small right effusion is present. Mild left upper quadrant free fluid is noted. IMPRESSION: 1. Right renal cyst. 2. Nonobstructing right renal calcification. Reviewed by: Namita Calvert MD on 01/06/2020 8:51 PM PDT Approved by: Namita Calvert MD on 01/06/2020 8:51 PM PDT Station ID: [id number]
[2020-01-07] MEDS: SODIUM CHLORIDE FLUSH 0.9% 10 ML SYRINGE IVP SCH ×3 (00:52→17:36)
[2020-01-07] MEDS: PANTOPRAZOLE 40 MG VIAL IVP SCH (05:16)
[2020-01-07] MEDS: SODIUM CHLORIDE FLUSH 0.9% 10 ML SYRINGE IVP PRN ×2 (05:17→10:15)
[2020-01-07] MEDS: ALBUMIN 25% 12.5 GM/50 ML VIAL IV SCH ×2 (05:19→13:43)
[2020-01-07] MEDS: MIDODRINE 2.5 MG TABLET PO SCH ×2 (05:26→13:43)
[2020-01-07 05:34] LABS: BASOPHILS % (AUTO) 0.2 %; EOSINOPHILS # (AUTO) 0.1 10^3/uL (0.0-0.7); EOSINOPHILS % (AUTO) 0.8 %; HGB - HEMOGLOBIN 8.2 g/dL (12.0-16.0); LYMPHOCYTES # (AUTO) 2.1 10^3/uL (1.5-3.5); LYMPHOCYTES % (AUTO) 12.6 %; MEAN CORPUSCULAR HEMOGLOBIN 25.6 pg (27.0-31.0); MEAN CORPUSCULAR HGB CONC 32.9 g/dL (32.0-36.0); MEAN CORPUSCULAR VOLUME 77.8 fL (81.0-99.0); MEAN PLATELET VOLUME 9.5 fL (7.9-10.8); MONOCYTES # (AUTO) 1.8 10^3/uL (0.0-1.0); MONOCYTES % (AUTO) 10.9 %; NEUTROPHILS # (AUTO) 12.2 10^3/uL (1.5-6.6); NEUTROPHILS % (AUTO) 74.8 %; PLT - PLATELET COUNT 157 10^3/uL (130-450); RED CELL DISTRIBUTION WIDTH 21.2 % (12.0-15.0); WHITE BLOOD COUNT 16.3 x10^3/uL (4.8-10.8)
[2020-01-07 05:46] LABS: ALBUMIN/GLOBULIN RATIO 0.7 (1.0-2.2); CALCIUM 8.6 mg/dL (8.5-10.3); CREATININE 1.3 mg/dL (0.4-1.0); TOTAL PROTEIN 4.7 g/dL (6.7-8.2)
[2020-01-07 06:24] LABS: DIFFERENTIAL COMMENT MANUAL=AUTO DIFF; PLATELET ESTIMATE, MANUAL NORMAL (130-450,000) (NORMAL)
[2020-01-07] MEDS ORDERED: SODIUM CHLORIDE 0.9% 1,000 ML IV SCH (07:52)
[2020-01-07] MEDS ORDERED: cefTRIAXone 2 GM in SODIUM CHLORIDE 0.9% MINIBAG 100 ML IV SCH (09:00)
[2020-01-07] MEDS: metroNIDAZOLE 250 MG TABLET PO SCH ×2 (10:12→13:34)
[2020-01-07] MEDS: BACLOFEN 10 MG TABLET PO SCH (10:12)
[2020-01-07] MEDS: LACTOBACILLUS RHAMNOSUS GG CAPSULE PO SCH (10:12)
[2020-01-07] MEDS: FERROUS SULFATE 325 MG TABLET PO SCH (10:12)
[2020-01-07] MEDS: MECLIZINE 12.5 MG TABLET PO SCH (10:12)
[2020-01-07] MEDS ORDERED: SODIUM CHLORIDE 0.9% MINIBAG 100 ML IV ONE (10:12)
[2020-01-07] MEDS: cefTRIAXone 2 GM in SODIUM CHLORIDE 0.9% MINIBAG 100 ML IV SCH (10:22)
[2020-01-07] MEDS: SODIUM CHLORIDE 0.9% 1,000 ML IV SCH ×2 (13:33→22:52)
[2020-01-07] MEDS: ONDANSETRON 4 MG/2 ML VIAL IVP PRN (13:42)
[2020-01-07] MEDS ORDERED: SODIUM CHLORIDE 0.9% 500 ML IV ONE (15:04)
--- NOTE | 2020-01-07 16:29 | PROVIDER PROGRESS NOTE ---
Subjective - Prog Note Date Prog Note Date: 01/07/20 - Subjective Pt reports feeling: Worse Subjective: pt is more Lethargic on the day, Patient did not eat anything on today. Patient's daughter Nasreen come to the hospital in the afternoon. Updated patient medical condition to her. as we discussed in yesterday afternoon, she requests hospice care for her mother. she hope patient can be discharged to the [facility] to do the hospice care, She cannot take care of patient in her home. Palliative care Nahomi Also discussed with Nasreen for the care plan, Nasreen wanted patient to have hospice care in [facility]. Current Medications - Current Medications Current Medications: Active Medications Acetaminophen (Tylenol) 650 mg PO Q4HR PRN PRN Reason: Pain 1 to 4 Last Admin: 01/05/20 06:29 Dose: 650 mg Documented by: Albuterol () 2.5 mg INH RTQ4H PRN PRN Reason: Wheezing Albuterol/Ipratropium (Duoneb) 3 ml INH RTQID PRN PRN Reason: Shortness of Air/Wheezing Baclofen (Lioresal) 5 mg PO BID [facility] Last Admin: 01/07/20 10:12 Dose: 5 mg Documented by: Ferrous Sulfate (Feosol) 325 mg PO DAILY LUIS M Last Admin: 01/07/20 10:12 Dose: 325 mg Documented by: Heparin Sodium (Beef Lung) () 30 - 50 unit IVP PRN PRN PRN Reason: Central Line Protocol (<24 hr) Last Admin: 01/06/20 11:39 Dose: 100 unit Documented by: Albumin Human (Albuminar-25) 12.5 gm in 50 mls @ 50 mls/hr IV TID LUIS M Last Infusion: 01/07/20 14:47 Dose: Infused Documented by: Ceftriaxone Sodium 2 gm/ (Sodium Chloride) 100 mls @ 200 mls/hr IV DAILY LUIS M Last Infusion: 01/07/20 11:35 Dose: Infused Documented by: Sodium Chloride (Normal Saline 0.9%) 1,000 mls @ 75 mls/hr IV .[id number] [facility] Stop: 01/08/20 15:17 Last Admin: 01/07/20 13:33 Dose: 75 mls/hr Documented by: Lactobacillus Rhamnosus (Culturelle) 1 cap PO DAILY [facility] Last Admin: 01/07/20 10:12 Dose: 1 cap Documented by: Meclizine HCl (Antivert) 12.5 mg PO BID [facility] Last Admin: 01/07/20 10:12 Dose: 12.5 mg Documented by: Metronidazole (Flagyl) 250 mg PO TIDWM [facility] Stop: 01/08/20 23:55 Last Admin: 01/07/20 13:34 Dose: 250 mg Documented by: Mineral Oil (Cavilon) 1 applic TOP PRN PRN PRN Reason: Skin Care Last Admin: 01/04/20 04:44 Dose: 1 applic Documented by: Ondansetron HCl (Zofran Inj) 4 mg IVP Q6HR PRN PRN Reason: Nausea / Vomiting Last Admin: 01/07/20 13:42 Dose: 4 mg Documented by: Pantoprazole Sodium (Protonix) 40 mg IVP QDAC [facility] Last Admin: 01/07/20 05:16 Dose: 40 mg Documented by: Sodium Chloride (Normal Saline Flush 0.9%) 10 ml IVP PRN PRN PRN Reason: NEEDED PER PROVIDER ORDERS Last Admin: 01/07/20 10:15 Dose: 10 ml Documented by: Sodium Chloride (Normal Saline Flush 0.9%) 10 ml IVP 0100,0900,1700 [facility] Last Admin: 01/07/20 05:16 Dose: 10 ml Documented by: Zolpidem Tartrate (Ambien) 5 mg PO QPM PRN PRN Reason: Insomnia Acetaminophen 500 mg Q8HR PRN 09/12/19 Apixaban [Eliquis] 5 mg PO BID 09/12/19 Famotidine 20 mg PO BID 09/12/19 Losartan Potassium 25 mg PO DAILY 09/12/19 Ondansetron HCl [Zofran] 4 mg PO Q6HR PRN 09/12/19 Simvastatin [Zocor] 40 mg PO DAILY 09/12/19 traMADol [Ultram] 50 mg PO Q6HR PRN 09/12/19 Albuterol Sulf [Ventolin Hfa Inhaler] 2 puffs PO Q4H PRN 01/02/20 Baclofen 5 mg PO BID 01/02/20 Ferrous Gluconate 240 mg PO DAILY 01/02/20 L.acid/L.casei/B.bif/B.magan/Fos [Probiotic Blend Capsule] 1 cap PO BID 01/02/20 Meclizine [Antivert] 12.5 mg PO BID 01/02/20 Senna [Senokot] 17.2 mg PO DAILY 01/02/20 carvediloL [Coreg] 3.125 mg PO DAILY 01/02/20 Objective - Vital Signs/Intake & Output Vital Signs: Vital Signs x48h Temp Pulse Pulse Resp BP Pulse Ox 01/07/20 13:59 72 81/53 L 01/07/20 12:28 36.4 C L 83 16 92/41 L 98 Intake & Output: Intake & Output 01/04/20 01/05/20 01/06/20 01/07/20 23:59 23:59 23:59 23:59 Intake Total 4250.000 3878.667 1262.283 2399.2 Output Total 700 785 300 175 Balance 3550.000 3093.667 1192.274 2205.2 - Objective General Appearance: positive: Alert, Lethargic Eyes Bilateral: positive: Normal inspection, PERRL, No lid inflammation ENT: positive: ENT inspection nml, No signs of dehydration. negative: Purulent nasal drainage Neck: positive: Nml inspection, Thyroid nml, Trachea midline. negative: Thyromegaly, Stiff neck, Tracheal deviation Respiratory: positive: Chest non-tender, No respiratory distress. negative: Wheezes, Rales, Rhonchi Cardiovascular: positive: No murmur, Irregularly irregular. negative: Tachycardia, Bradycardia, Systolic murmur Peripheral Pulses: 2+ Radial (R), 2+ Radial (L) Abdomen: positive: Non-tender, No organomegaly, Other (hypoactive bowel sound). negative: Nml bowel sounds, Tenderness, Guarding, Rebound Back: positive: Nml inspection Skin: positive: No rash, Warm, Dry. negative: Cyanosis, Diaphoresis, Pallor Extremities: positive: Non-tender, Other (anasarca at four extremities). negative: Calf tenderness, Alireza's sign/cords Neurologic/Psychiatric: positive: Disoriented to person, Disoriented to place, Disoriented to time. negative: Sensory loss, Facial droop, Slurred/abnml speech - Lab Results Fish Bones: 01/07/20 05:07 01/07/20 05:07 Other Labs: Lab Results x24hrs 01/07/20 01/07/20 01/06/20 Range/Units 05:07 05:07 17:15 WBC 16.3 H (4.8-10.8) x10^3/uL RBC 3.20 L (4.20-5.40) 10^6/uL Hgb 8.2 L (12.0-16.0) g/dL Hct 24.9 L (37.0-47.0) % MCV 77.8 L (81.0-99.0) fL MCH 25.6 L (27.0-31.0) pg MCHC 32.9 (32.0-36.0) g/dL RDW 21.2 H (12.0-15.0) % Plt Count 157 (130-450) 10^3/uL MPV 9.5 (7.9-10.8) fL Neut # (Auto) 12.2 H (1.5-6.6) 10^3/uL Lymph # (Auto) 2.1 (1.5-3.5) 10^3/uL Yell # (Auto) 1.8 H (0.0-1.0) 10^3/uL Eos # (Auto) 0.1 (0.0-0.7) 10^3/uL Baso # (Auto) 0.0 (0.0-0.1) 10^3/uL Absolute Nucleated RBC 0.00 x10^3/uL Band Neuts % (Manual) Not Reportable Abnorm Lymph % (Manual) Not Reportable Nucleated RBC % 0.0 /100WBC Neutrophils # (Manual) Not Reportable Lymphocytes # (Manual) Not Reportable Monocytes # (Manual) Not Reportable Eosinophils # (Manual) Not Reportable Basophils # (Manual) Not Reportable Differential Comment MANUAL=AUTO DIFF Platelet Estimate NORMAL (130-450,000) (NORMAL) RBC Morph Micro Appear 1+ OVALOCYTES (NORMAL) Sodium 136 (135-145) mmol/L Potassium 4.0 (3.5-5.0) mmol/L Chloride 114 H (101-111) mmol/L Carbon Dioxide 15 L (21-32) mmol/L Anion Gap 7.0 (6-13) BUN 37 H (6-20) mg/dL Creatinine 1.3 H (0.4-1.0) mg/dL Estimated GFR (MDRD) 39 L (>89) Glucose 86 (70-100) mg/dL Calcium 8.6 (8.5-10.3) mg/dL Total Bilirubin 3.0 H (0.2-1.0) mg/dL AST 62 H (10-42) IU/L ALT 24 (10-60) IU/L Alkaline Phosphatase 468 H (42-121) IU/L Troponin I High Sens 27.0 H* (2.3-14.8) ng/L Total Protein 4.7 L (6.7-8.2) g/dL Albumin 2.0 L (3.2-5.5) g/dL Globulin 2.7 (2.1-4.2) g/dL Albumin/Globulin Ratio 0.7 L (1.0-2.2) CA 19-9 Antigen (<34) U/mL Coronavirus (PCR) 01/06/20 01/05/20 Range/Units 11:15 10:46 WBC (4.8-10.8) x10^3/uL RBC (4.20-5.40) 10^6/uL Hgb (12.0-16.0) g/dL Hct (37.0-47.0) % MCV (81.0-99.0) fL MCH (27.0-31.0) pg MCHC (32.0-36.0) g/dL RDW (12.0-15.0) % Plt Count (130-450) 10^3/uL MPV (7.9-10.8) fL Neut # (Auto) (1.5-6.6) 10^3/uL Lymph # (Auto) (1.5-3.5) 10^3/uL Yell # (Auto) (0.0-1.0) 10^3/uL Eos # (Auto) (0.0-0.7) 10^3/uL Baso # (Auto) (0.0-0.1) 10^3/uL Absolute Nucleated RBC x10^3/uL Band Neuts % (Manual) Abnorm Lymph % (Manual) Nucleated RBC % /100WBC Neutrophils # (Manual) Lymphocytes # (Manual) Monocytes # (Manual) Eosinophils # (Manual) Basophils # (Manual) Differential Comment Platelet Estimate (NORMAL) RBC Morph Micro Appear (NORMAL) Sodium (135-145) mmol/L Potassium (3.5-5.0) mmol/L Chloride (101-111) mmol/L Carbon Dioxide (21-32) mmol/L Anion Gap (6-13) BUN (6-20) mg/dL Creatinine (0.4-1.0) mg/dL Estimated GFR (MDRD) (>89) Glucose (70-100) mg/dL Calcium (8.5-10.3) mg/dL Total Bilirubin (0.2-1.0) mg/dL AST (10-42) IU/L ALT (10-60) IU/L Alkaline Phosphatase (42-121) IU/L Troponin I High Sens (2.3-14.8) ng/L Total Protein (6.7-8.2) g/dL Albumin (3.2-5.5) g/dL Globulin (2.1-4.2) g/dL Albumin/Globulin Ratio (1.0-2.2) CA 19-9 Antigen 30 (<34) U/mL Coronavirus (PCR) NEGATIVE ABX Reporting Has patient been on IV antibiotics over the past 48 hours?: Yes Sepsis Event Note (H) - Evaluation Current Stage of Sepsis: Sepsis Possible source of Sepsis: positive: GI tract/intra-abdominal - Sepsis Criteria Sepsis Criteria: MAP less than 65 mmHg Assessment/Plan - Problem List (1) Hypotension Impression: Patient continued to have hypotension SBP at 81 although pt was given bolus IV fluid, Continue to have perfusion. pt also was give Midodrive as well. Patient was continually treated with antibiotics according to sensitivity study.Patient's troponin now is negative for acute TN. Patient's CEA tumor marker for colon cancer is 15 and is significantly elevated, Unfortunately patient cannot have colonoscopy because patient has acute infection with colitis and diverticulitis. CAT scan of the abdomen cannot exclude colon malignancy. (2)hypoalbuminemia Albumin level is a slightly improved at 2.0 patient was given 3 bottle Of alb umin on yesterday. pt has anasarca (3)elevated liver enzyme Patient still has elevated liver enzyme, elevated total bili and alkaline phosphatase. MRCP reveals unexplained to elevated liver enzyme. Patient continued to nausea, vomiting and very poor appetite on today. Patient's daughter Nasreen report patient has been sick and continue to have nausea and vomiting Since from last year April. (4)oliguria Patient only make 300 cc urine yesterday and still will be dark although pt was given IV of fluid. Patient presents anasarca, likely patient fluids went to the third space. (5)anasarca Patient present Anasarca in 4 extremity. She has a elevated creatinine, patient also has pulmonary hypertension with right-sided heart failure. (6) E. coli UTI Patient continue to have increased WBC today. Patient's daughter hope continue antibiotics before for hospice care (7) Diverticulitis continue Rocephin and Flagyl. (8) Colitis continue to have antibiotics Rocephin and Flagyl. (9) JOSÉ MIGUEL (acute kidney injury) Patient creatinine is 1.3 on today, Patient also has oligo urea on today. Patient also presents anasarca and pulmonary congestion. We will continue comfortable management. (10) GI bleed Resolved (11) Anemia Stable, continue current comfortable management (12)anorexia Patient has very poor appetite and declined to eat anything today. We will continue comfortable management (13)pulmonary hypertension with right side heart failure Patient Echo report patient has pulmonary hypertension with 64mmHg and right side heart failure, We will do comfortable management (13)comfortable measure Updated patient medical condition to patient's daughter Nasreen, she request for comfortable measure and continue antibiotics until d/c and discharged to [facility] for hospice care (2) GI bleed Qualifiers: GI bleed type/associated pathology: unspecified gastrointestinal hemorrhage type Qualified Code(s): K92.2 - Gastrointestinal hemorrhage, unspecified
--- NOTE | 2020-01-07 16:45 | CONSULTATION NOTE ---
Palliative Care Consultation - Referral Referring Provider: Estefany MADRIGAL Time of Visit: 2805-1070 Referral setting: Hospitalized patient Referral Reason: FTT/Colitis/JOSÉ MIGUEL/Anasarca/Goals of Care - Information Sources Records reviewed: RN notes reviewed, Previous records reviewed History/Review of Systems obtained from: Patient, Family (daughter Nasreen) Exam limitations: Clinical condition (patient pleasantly confused) - History of Present Illness Brief History of Present Illness: This is 84-year-old woman who is deteriorating fairly quickly, with severe hypotension, hypoalbuminemia, anasarca, CHF, acute kidney injury, and being treated for E. coli UTI and diverticulitis. She is continued to have worsening kidney, liver, and elevated white count. She is also not tolerating any kind of IV fluid, has baseline nausea and intermittent vomiting, abdominal tenderness, poor intake, and continues along the lines is failure to thrive. Patient did have a CT scan of her abdomen, as she had presented from with 3 days of blood in her stool, this was an work-up in response to her complaints of nausea. There have been a plan for upper endoscopy as well as lower colonoscopy, the patient did not show any further active signs or symptoms of bleeding. She is at high risk for any surgical intervention given her multiple comorbidities. They did run a CEA which was elevated at 15, her abdominal and pelvic CT did "Markedly thickened cecum and ascending colon with adjacent inflammatory changes and fluid. Findings presumably represent infectious colitis or potentially diverticulitis. There is no organized fluid collection or abscess. Follow-up to both clinical and radiographic resolution is recommended to help exclude a malignancy which is an additional concern." Patient has had a series of unfortunate events, and actually a fairly sudden change in healthcare status starting back in late April. She had had a fall, with right thigh injury and atrophy, unfortunately do the holidays it was a di fficult time to get in and get worked up, when she finally did get a work-up, she had severe spinal stenosis that was already impinging with nerve damage. In the context of this timing, she is also admitted in early June at [facility] with pneumonia, at that point time they also found PEs, DVTs, and she was also found to have CHF and pulmonary hypertension and was to be urgently worked up for surgery on her back. Given her high risk status and recent hospitalization, she did receive her surgery at [facility]. She had a long and complicated recovery, and was transition to SNF, she was admitted to [facility]. Unfortunately her timing was right at the point where they had a COVID outbreak, which increased her isolation, patient was thought to be positive and put on the COVID wing, she later tested negative but in the meantime has not had contact with her family because of the restrictions, has had persistent vertigo and intermittent nausea, so increased difficulty pa rticipating in therapy, and essentially was most likely not going to walk again per the orthopedic surgeon though patient not aware. Her daughter's perception is her quality of life his continue be quite poor, she has had UTI before and recovered, and was quite surprised of patient's acute illness, she had been and [facility] and came back today. She does understand the seriousness of her mother's current condition, the most likely is not going to respond to current treatment, and does not want to extend her suffering. She reports she is D [place], her brother currently has lung cancer and is not available for visit, her other brother lives in [place], and she has a sister in [place]. She is very close though to her two granddaughters, that are Nasreen's children. 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 Patient is from [place], still retains her accent. . She worked at the [employer] for a while, she came here with her for the [employer]. She has been always clear and alert, a except for these last couple days.Has been very difficult for her over at the SNF, as they have not been able to visit, her daughter is only seen her once when she took her for an appointment. Family History - Family History Family History: Mother: , CVA/TIA, Father: , CVA/TIA Family History Comment/Other: She has 9 brothers and sisters; hx of cancer 3-4 Medications/Allergies - Medications Active Medication List: Active Medications Acetaminophen (Tylenol) 650 mg PO Q4HR PRN PRN Reason: Pain 1 to 4 Last Admin: 01/05/20 06:29 Dose: 650 mg Documented by: Albuterol () 2.5 mg INH RTQ4H PRN PRN Reason: Wheezing Albuterol/Ipratropium (Duoneb) 3 ml INH RTQID PRN PRN Reason: Shortness of Air/Wheezing Baclofen (Lioresal) 5 mg PO BID [facility] Last Admin: 01/07/20 10:12 Dose: 5 mg Documented by: Ferrous Sulfate (Feosol) 325 mg PO DAILY [facility] Last Admin: 01/07/20 10:12 Dose: 325 mg Documented by: Heparin Sodium (Beef Lung) () 30 - 50 unit IVP PRN PRN PRN Reason: Central Line Protocol (<24 hr) Last Admin: 01/06/20 11:39 Dose: 100 unit Documented by: Albumin Human (Albuminar-25) 12.5 gm in 50 mls @ 50 mls/hr IV TID [facility] Last Infusion: 01/07/20 14:47 Dose: Infused Documented by: Ceftriaxone Sodium 2 gm/ (Sodium Chloride) 100 mls @ 200 mls/hr IV DAILY [facility] Last Infusion: 01/07/20 11:35 Dose: Infused Documented by: Sodium Chloride (Normal Saline 0.9%) 1,000 mls @ 75 mls/hr IV .[id number] [facility] Stop: 01/08/20 15:17 Last Admin: 01/07/20 13:33 Dose: 75 mls/hr Documented by: Lactobacillus Rhamnosus (Culturelle) 1 cap PO DAILY [facility] Last Admin: 01/07/20 10:12 Dose: 1 cap Documented by: Meclizine HCl (Antivert) 12.5 mg PO BID [facility] Last Admin: 01/07/20 10:12 Dose: 12.5 mg Documented by: Metronidazole (Flagyl) 250 mg PO TIDWM [facility] Stop: 01/08/20 23:55 Last Admin: 01/07/20 13:34 Dose: 250 mg Documented by: Mineral Oil (Cavilon) 1 applic TOP PRN PRN PRN Reason: Skin Care Last Admin: 01/04/20 04:44 Dose: 1 applic Documented by: Ondansetron HCl (Zofran Inj) 4 mg IVP Q6HR PRN PRN Reason: Nausea / Vomiting Last Admin: 01/07/20 13:42 Dose: 4 mg Documented by: Pantoprazole Sodium (Protonix) 40 mg IVP QDAC [facility] Last Admin: 01/07/20 05:16 Dose: 40 mg Documented by: Sodium Chloride (Normal Saline Flush 0.9%) 10 ml IVP PRN PRN PRN Reason: NEEDED PER PROVIDER ORDERS Last Admin: 01/07/20 10:15 Dose: 10 ml Documented by: Sodium Chloride (Normal Saline Flush 0.9%) 10 ml IVP 0100,0900,1700 [facility] Last Admin: 01/07/20 05:16 Dose: 10 ml Documented by: Zolpidem Tartrate (Ambien) 5 mg PO QPM PRN PRN Reason: Insomnia Acetaminophen 500 mg Q8HR PRN 09/12/19 Apixaban [Eliquis] 5 mg PO BID 09/12/19 Famotidine 20 mg PO BID 09/12/19 Losartan Potassium 25 mg PO DAILY 09/12/19 Ondansetron HCl [Zofran] 4 mg PO Q6HR PRN 09/12/19 Simvastatin [Zocor] 40 mg PO DAILY 09/12/19 traMADol [Ultram] 50 mg PO Q6HR PRN 09/12/19 Albuterol Sulf [Ventolin Hfa Inhaler] 2 puffs PO Q4H PRN 01/02/20 Baclofen 5 mg PO BID 01/02/20 Ferrous Gluconate 240 mg PO DAILY 01/02/20 L.acid/L.casei/B.bif/B.magan/Fos [Probiotic Blend Capsule] 1 cap PO BID 01/02/20 Meclizine [Antivert] 12.5 mg PO BID 01/02/20 Senna [Senokot] 17.2 mg PO DAILY 01/02/20 carvediloL [Coreg] 3.125 mg PO DAILY 01/02/20 - Allergies Allergies/Adverse Reactions: Allergies Allergy/AdvReac Type Severity Reaction Status Date / Time fexofenadine Allergy Unknown Verified 01/02/20 13:35 Review of Systems - Constitutional Constitutional: reports: Fatigue, Weakness, Poor appetite, Weight gain (fluid). denies: Fever, Chills - Eyes Eyes: reports: Blurred vision, Vision loss - Ears, Nose & Throat Ears, Nose & Throat: reports: Hearing loss - Cardiovascular Cardiovascular: reports: Edema, Other (poor venous access; has PICC line) - Respiratory Respiratory: denies: SOB at rest - Gastrointestinal Gastrointestinal: reports: Abdominal pain, Poor appetite - Genitourinary Genitourinary: reports: Other (has montelongo) - Musculoskeletal Musculoskeletal: reports: Stiffness, Muscle weakness, Other (has been bedbound since admit) - Integumentary Integumentary: reports: Other (skin weeping) - Neurological Neurological: reports: General weakness, Dizziness (has previous to admit), Memory problems - Psychiatric Psychiatric: reports: Anxiety - Hematologic/Lymphatic Hematologic/Lymphatic: reports: Blood clots, Recurrent infections (UTI) - All Other Systems All Other Systems: reports: Reviewed and negative Physical Exam - Vital Signs Vital Signs: Vital Signs x48h Temp Pulse Pulse Resp BP Pulse Ox 01/07/20 13:59 72 81/53 L 01/07/20 12:28 36.4 C L 83 16 92/41 L 98 - Physical Exam General Appearance: positive: Moderate distress, Lethargic Eyes Bilateral: positive: No scleral icterus, Other (opens eyes easily) ENT: positive: Hearing loss, Dry mouth Neck: positive: Trachea midline Cardiovascular: positive: Regular rate & rhythm, Other (hypotension) Respiratory: positive: No respiratory distress, Diminished throughout. negative: Wheezes, Rales, Rhonchi Abdomen: positive: Soft, Nml bowel sounds, Tenderness, Distended, Obese Skin: positive: Pallor, Bruising, Other (weeping UE) Extremities: positive: Pedal edema Neurologic/Psychiatric: positive: Disoriented to time, Weakness, Slurred/abnml speech, Flat affect Palliative Care - POLST POLST Status: DNR Pain: No pain, Comment (Does c/o tenderness RLQ with palpation) Performance Status: Patient was wheelchair-bound, need maximum assist for transfers at SNF. Had not regained walking, and was not expected to. Had just transition to the long- term care side, as patient was going to need higher level of care, and has no caregiver at her current apartment. - Palliative Care Discussion: Patient is aware she is in the hospital, and that she is in [place]. She does recognize her daughter, she is very polite and able to interact and short substances and easy answers to questions. She does not appear to have insight or understanding of her current condition or that she is doing poorly. She does know she does not feel well. After daughters meeting, we did discuss about returning back to carriage, she was in agreement with this. We discussed focusing on keeping her comfortable, and having an extra layer of support of nurses and people helping her feel better. Met with daughter Nasreen, who is D [place]. She does understand the seriousness of her mother's condition, does perceive her quality of life has dramatically decreased since April. It has been made more complicated with the restrictions and being at the SNF during the middle of . She had also been hospitalized and June, then for her surgery, and then to SNF. She did take care of her from April to June, but found it very difficult as far as her care needs for lifting moving and able to manage her either at her or her mom's apartment. She does feel like the staff are fond of her mother, and would be comfortable with her returning back with the hospice team. Counseling provided regarding the goals of care with hospice with focus on comfort, we discussed current transition, she would like to continue the antibiotics, but aware that would not be treating her hypotension, or providing any support to extend her suffering. She is in agreement for comfort focused care. Did speak with nurse Eddy at with update and to explore if they would be willing to accept her with hospice goals and support, they are quite fond of her and are of course distressed that her demise, but would like her back. Results - Lab Results Lab results reviewed: Yes Fish Bones: 01/07/20 05:07 01/07/20 05:07 Lab and Imaging Results: Lab Results x24hrs 01/07/20 01/07/20 01/06/20 Range/Units 05:07 05:07 17:15 WBC 16.3 H (4.8-10.8) x10^3/uL RBC 3.20 L (4.20-5.40) 10^6/uL Hgb 8.2 L (12.0-16.0) g/dL Hct 24.9 L (37.0-47.0) % MCV 77.8 L (81.0-99.0) fL MCH 25.6 L (27.0-31.0) pg MCHC 32.9 (32.0-36.0) g/dL RDW 21.2 H (12.0-15.0) % Plt Count 157 (130-450) 10^3/uL MPV 9.5 (7.9-10.8) fL Neut # (Auto) 12.2 H (1.5-6.6) 10^3/uL Lymph # (Auto) 2.1 (1.5-3.5) 10^3/uL Barnes # (Auto) 1.8 H (0.0-1.0) 10^3/uL Eos # (Auto) 0.1 (0.0-0.7) 10^3/uL Baso # (Auto) 0.0 (0.0-0.1) 10^3/uL Absolute Nucleated RBC 0.00 x10^3/uL Band Neuts % (Manual) Not Reportable Abnorm Lymph % (Manual) Not Reportable Nucleated RBC % 0.0 /100WBC Neutrophils # (Manual) Not Reportable Lymphocytes # (Manual) Not Reportable Monocytes # (Manual) Not Reportable Eosinophils # (Manual) Not Reportable Basophils # (Manual) Not Reportable Differential Comment MANUAL=AUTO DIFF Platelet Estimate NORMAL (130-450,000) (NORMAL) RBC Morph Micro Appear 1+ OVALOCYTES (NORMAL) Sodium 136 (135-145) mmol/L Potassium 4.0 (3.5-5.0) mmol/L Chloride 114 H (101-111) mmol/L Carbon Dioxide 15 L (21-32) mmol/L Anion Gap 7.0 (6-13) BUN 37 H (6-20) mg/dL Creatinine 1.3 H (0.4-1.0) mg/dL Estimated GFR (MDRD) 39 L (>89) Glucose 86 (70-100) mg/dL Calcium 8.6 (8.5-10.3) mg/dL Total Bilirubin 3.0 H (0.2-1.0) mg/dL AST 62 H (10-42) IU/L ALT 24 (10-60) IU/L Alkaline Phosphatase 468 H (42-121) IU/L Troponin I High Sens 27.0 H* (2.3-14.8) ng/L Total Protein 4.7 L (6.7-8.2) g/dL Albumin 2.0 L (3.2-5.5) g/dL Globulin 2.7 (2.1-4.2) g/dL Albumin/Globulin Ratio 0.7 L (1.0-2.2) CA 19-9 Antigen (<34) U/mL Coronavirus (PCR) 01/06/20 01/05/20 Range/Units 11:15 10:46 WBC (4.8-10.8) x10^3/uL RBC (4.20-5.40) 10^6/uL Hgb (12.0-16.0) g/dL Hct (37.0-47.0) % MCV (81.0-99.0) fL MCH (27.0-31.0) pg MCHC (32.0-36.0) g/dL RDW (12.0-15.0) % Plt Count (130-450) 10^3/uL MPV (7.9-10.8) fL Neut # (Auto) (1.5-6.6) 10^3/uL Lymph # (Auto) (1.5-3.5) 10^3/uL Barnes # (Auto) (0.0-1.0) 10^3/uL Eos # (Auto) (0.0-0.7) 10^3/uL Baso # (Auto) (0.0-0.1) 10^3/uL Absolute Nucleated RBC x10^3/uL Band Neuts % (Manual) Abnorm Lymph % (Manual) Nucleated RBC % /100WBC Neutrophils # (Manual) Lymphocytes # (Manual) Monocytes # (Manual) Eosinophils # (Manual) Basophils # (Manual) Differential Comment Platelet Estimate (NORMAL) RBC Morph Micro Appear (NORMAL) Sodium (135-145) mmol/L Potassium (3.5-5.0) mmol/L Chloride (101-111) mmol/L Carbon Dioxide (21-32) mmol/L Anion Gap (6-13) BUN (6-20) mg/dL Creatinine (0.4-1.0) mg/dL Estimated GFR (MDRD) (>89) Glucose (70-100) mg/dL Calcium (8.5-10.3) mg/dL Total Bilirubin (0.2-1.0) mg/dL AST (10-42) IU/L ALT (10-60) IU/L Alkaline Phosphatase (42-121) IU/L Troponin I High Sens (2.3-14.8) ng/L Total Protein (6.7-8.2) g/dL Albumin (3.2-5.5) g/dL Globulin (2.1-4.2) g/dL Albumin/Globulin Ratio (1.0-2.2) CA 19-9 Antigen 30 (<34) U/mL Coronavirus (PCR) NEGATIVE Impression and Recommendations - Palliative Care Impression: Is an 84-year-old woman who has had ongoing decline over the last several months, and most acutely over the last several days. She is hospitalized and being treated for colitis, UTI, unfortunately her WBCs continue to elevate as well as experiencing hypotension, JOSÉ MIGUEL, elevated liver enzymes, altered mental status, and presents as failure to thrive. Patient has severe hypoalbuminemia of unknown etiology, and presents with anasarca as well. Goals are established to focus on comfort, and transition to hospice on discharge back to SNF. Recommendations/Counseling Done: 1. Nausea. This is multifactorial in origin, as well as poorly understand etiology. This is been persistent for 4 to 6 weeks, originally attributed to dizziness. Would recommend scheduled ondansetron 3 times daily, in addition to her pantoprazole. 2. Advanced care planning. Met with daughter to establish goals of care, at this point she does understand patient is seriously ill and not improving. She does perceive her mother's quality of life is deteriorating, she is currently transition to long-term care at the SNF. Patient presents with multiple comorbid conditions, worsening symptom burden, anasarca, and persistent hypotension, worsening kidney and liver function. She has anorexia, cognitive and functional decline. In family meeting with daughter, given the goals are consistent with focus on comfort, not prolonging suffering, and alignment with providing her a comfortable respectful . Daughter is aware that mother may continue to decline and in hospital, but goal would be to transition her back to [facility] with hospice support. [facility] On the Rebel index, that looks at hospitalized Patient 70 years and older, patient scores a 7, which is a 64% 1 year all cause mortality rate. Risk calcu lators identified patients with similar risk factors, but unable to identify individual patients of who will live and who will . Time Spent: 75 minutes with greater than 50% of this done in counseling with daughter establising goals of care, coordination of care with hospice and hospital team, and anticipatory guidance.
[2020-01-07] MEDS ORDERED: LORazepam 0.5 MG TABLET PO PRN (17:50)
[2020-01-07] MEDS: MORPHINE SOL 10 MG/0.5 ML ORAL SYRINGE PO PRN (18:06)
[2020-01-07] MEDS: ONDANSETRON 4 MG/2 ML VIAL IVP SCH (21:02)
[2020-01-07] MEDS ORDERED: MIDODRINE 2.5 MG TABLET PO SCH (22:00)
[2020-01-08] MEDS: SODIUM CHLORIDE FLUSH 0.9% 10 ML SYRINGE IVP SCH ×3 (00:32→17:10)
[2020-01-08] MEDS: MIN OIL/DIMETHICON/COCONUT OIL 92 GM TUBE TOP PRN (05:40)
[2020-01-08] MEDS: ONDANSETRON 4 MG/2 ML VIAL IVP SCH ×3 (05:40→20:48)
[2020-01-08] MEDS: cefTRIAXone 2 GM in SODIUM CHLORIDE 0.9% MINIBAG 100 ML IV SCH (09:25)
--- NOTE | 2020-01-08 12:03 | PROVIDER PROGRESS NOTE ---
Subjective - Prog Note Date Prog Note Date: 01/08/20 - Subjective Pt reports feeling: Worse Subjective: pt is still alert but barely responsive and lethargic. pt denies pain. nurse report her BP continue running down. Current Medications - Current Medications Current Medications: Active Medications Acetaminophen (Tylenol) 650 mg PO Q4HR PRN PRN Reason: Pain 1 to 4 Last Admin: 01/05/20 06:29 Dose: 650 mg Documented by: Albuterol () 2.5 mg INH RTQ4H PRN PRN Reason: Wheezing Albuterol/Ipratropium (Duoneb) 3 ml INH RTQID PRN PRN Reason: Shortness of Air/Wheezing Heparin Sodium (Beef Lung) () 30 - 50 unit IVP PRN PRN PRN Reason: Central Line Protocol (<24 hr) Last Admin: 01/06/20 11:39 Dose: 100 unit Documented by: Ceftriaxone Sodium 2 gm/ (Sodium Chloride) 100 mls @ 200 mls/hr IV DAILY [facility] Last Infusion: 01/08/20 09:55 Dose: Infused Documented by: Sodium Chloride (Normal Saline 0.9%) 1,000 mls @ 75 mls/hr IV .[id number] [facility] Stop: 01/08/20 15:17 Last Infusion: 01/08/20 09:55 Dose: 75 mls/hr Documented by: Lorazepam (Ativan) 0.5 mg PO Q6H PRN PRN Reason: Anxiety Mineral Oil (Cavilon) 1 applic TOP PRN PRN PRN Reason: Skin Care Last Admin: 01/08/20 05:40 Dose: 1 applic Documented by: Morphine Sulfate (Roxanol) 5 mg PO Q4HR PRN PRN Reason: PAIN Last Admin: 01/07/20 18:06 Dose: 5 mg Documented by: Ondansetron HCl (Zofran Inj) 4 mg IVP TID [facility] Last Admin: 01/08/20 05:40 Dose: 4 mg Documented by: Sodium Chloride (Normal Saline Flush 0.9%) 10 ml IVP PRN PRN PRN Reason: NEEDED PER PROVIDER ORDERS Last Admin: 01/07/20 10:15 Dose: 10 ml Documented by: Sodium Chloride (Normal Saline Flush 0.9%) 10 ml IVP 0100,0900,1700 [facility] Last Admin: 01/08/20 10:00 Dose: Not Given Documented by: Acetaminophen 500 mg Q8HR PRN 09/12/19 Apixaban [Eliquis] 5 mg PO BID 09/12/19 Famotidine 20 mg PO BID 09/12/19 Losartan Potassium 25 mg PO DAILY 09/12/19 Ondansetron HCl [Zofran] 4 mg PO Q6HR PRN 09/12/19 Simvastatin [Zocor] 40 mg PO DAILY 09/12/19 traMADol [Ultram] 50 mg PO Q6HR PRN 09/12/19 Albuterol Sulf [Ventolin Hfa Inhaler] 2 puffs PO Q4H PRN 01/02/20 Baclofen 5 mg PO BID 01/02/20 Ferrous Gluconate 240 mg PO DAILY 01/02/20 L.acid/L.casei/B.bif/B.magan/Fos [Probiotic Blend Capsule] 1 cap PO BID 01/02/20 Meclizine [Antivert] 12.5 mg PO BID 01/02/20 Senna [Senokot] 17.2 mg PO DAILY 01/02/20 carvediloL [Coreg] 3.125 mg PO DAILY 01/02/20 Objective - Vital Signs/Intake & Output Vital Signs: Vital Signs x48h Temp Pulse Resp BP Pulse Ox 01/08/20 08:45 35.7 C L 80 18 76/41 L 91 L Intake & Output: Intake & Output 01/05/20 01/06/20 01/07/20 01/08/20 23:59 23:59 23:59 23:59 Intake Total 3878.667 5714.363 8898.95 891.25 Output Total 785 300 225 20 Balance 3093.667 5179.430 2571.95 871.25 - Objective General Appearance: positive: No acute distress, Alert, Lethargic Eyes Bilateral: positive: Normal inspection, No lid inflammation ENT: positive: ENT inspection nml, No signs of dehydration Neck: positive: Nml inspection, Trachea midline. negative: Stiff neck, Tracheal deviation Respiratory: positive: Chest non-tender, No respiratory distress. negative: Wheezes, Rales Cardiovascular: positive: No murmur, No gallop, Irregularly irregular. negative: Tachycardia, Bradycardia Peripheral Pulses: 2+ Radial (R), 2+ Radial (L) Abdomen: positive: Non-tender, No organomegaly, No distention, Other (reduced bowel sound). negative: Nml bowel sounds, Tenderness, Guarding, Rebound Back: positive: Nml inspection Skin: positive: Color nml, No rash, Warm, Dry. negative: Cyanosis, Diaphoresis, Pallor Extremities: positive: Non-tender. negative: Calf tenderness Neurologic/Psychiatric: positive: Sensation nml. negative: Facial droop - Lab Results Fish Bones: 01/07/20 05:07 01/07/20 05:07 ABX Reporting Has patient been on IV antibiotics over the past 48 hours?: Yes Sepsis Event Note (H) - Evaluation Current Stage of Sepsis: Sepsis Possible source of Sepsis: positive: GI tract/intra-abdominal - Sepsis Criteria Sepsis Criteria: MAP less than 65 mmHg Assessment/Plan - Problem List (1) Hypotension Impression: 01/07 Patient Blood pressure is worsening 76/41, We will continue comfortable management, continue intravenous IV fluids until patient discharged for hospice care Per patient's daughter wish Patient continued to have hypotension SBP at 81 although pt was given bolus IV fluid, Continue to have perfusion. pt also was give Midodrive as well. Patient was continually treated with antibiotics according to sensitivity study.Patient's troponin now is negative for acute ND. Patient's CEA tumor marker for colon cancer is 15 and is significantly elevated, Unfortunately patient cannot have colonoscopy because patient has acute infection with colitis and diverticulitis. CAT scan of the abdomen cannot exclude colon malignancy. (2)hypoalbuminemia Albumin level is a slightly improved at 2.0 patient was given 3 bottle Of albumin on yesterday. pt has anasarca (3)elevated liver enzyme Patient still has elevated liver enzyme, elevated total bili and alkaline phosphatase. MRCP reveals unexplained to elevated liver enzyme. Patient continued to nausea, vomiting and very poor appetite on today. Patient's daughter Nasreen report patient has been sick and continue to have nausea and vomiting Since from last year April. (4)oliguria Patient only make 300 cc urine yesterday and still will be dark although pt was given IV of fluid. Patient presents anasarca, likely patient fluids went to the third space. (5)anasarca Patient present Anasarca in 4 extremity. She has a elevated creatinine, patient also has pulmonary hypertension with right-sided heart failure. (6) E. coli UTI 723,We will continue antibiotics Rocephin, per patient daughter's wish until pt was d/c to hospice. Patient continue to have increased WBC today. Patient's daughter hope continue antibiotics before for hospice care (7) Diverticulitis continue Rocephin and Flagyl. (8) Colitis continue to have antibiotics Rocephin and Flagyl. (9) JOSÉ MIGUEL (acute kidney injury) Patient creatinine is 1.3 on today, Patient also has oligo urea on today. Patient also presents anasarca and pulmonary congestion. We will continue comfortable management. (10) GI bleed Resolved (11) Anemia Stable, continue current comfortable management (12)anorexia 723, Patient declined to eat anything today. Patient has very poor appetite and declined to eat anything today. We will continue comfortable management (13)pulmonary hypertension with right side heart failure Patient Echo report patient has pulmonary hypertension with 64mmHg and right side heart failure, We will do comfortable management (13)comfortable measure 723, we will continue comfortable [place], we will continue support Updated patient medical condition to patient's daughter Nasreen, she request for comfortable measure and continue antibiotics until d/c and [facility] (2) GI bleed Qualifiers: GI bleed type/associated pathology: unspecified gastrointestinal hemorrhage type Qualified Code(s): K92.2 - Gastrointestinal hemorrhage, unspecified
[2020-01-08] MEDS: SODIUM CHLORIDE FLUSH 0.9% 10 ML SYRINGE IVP PRN (20:48)
[2020-01-09] MEDS: MORPHINE SOL 10 MG/0.5 ML ORAL SYRINGE PO PRN ×4 (00:08→08:20)
[2020-01-09] MEDS: SODIUM CHLORIDE FLUSH 0.9% 10 ML SYRINGE IVP SCH ×2 (00:10→08:21)
[2020-01-09] MEDS: SODIUM CHLORIDE FLUSH 0.9% 10 ML SYRINGE IVP PRN ×2 (00:11→06:01)
[2020-01-09] MEDS: ONDANSETRON 4 MG/2 ML VIAL IVP SCH (06:01)
[2020-01-09 08:09] VITALS: BP 68/38
[2020-01-09] MEDS: cefTRIAXone 2 GM in SODIUM CHLORIDE 0.9% MINIBAG 100 ML IV SCH (08:20)
--- NOTE | 2020-01-09 11:17 | Discharge Plan ---
"Discharge Plan for SNF / RESIDENTIAL - Discharge Plan And Transition Orders Problem Reviewed?: Yes Disposition: 50 Hospice/Home DC/Xfer Condition: Stable Allergies and Adverse Reactions: Allergies Allergy/AdvReac Type Severity Reaction Status Date / Time fexofenadine Allergy Unknown Verified 01/02/20 13:35 Health Concerns: hospice care Plan of Treatment: pt will be d/c to [facility] for hospice care, please followup with hospice care team. Care Goals: comfortable and quality of life. Assessment: discussed with pt's daughter the care plan, she understood and agreed. - SNF / [facility] Transition Orders Admit to (Facility): [facility] Under the care of (Name): James Rojas Discharge Diagnosis: liver failure, anasarca, hypotension, renal failure, UTI/colitis/diverticulitis, pulmonary hypertension with right side heart failure, anorexia, GI bleed Medicare Certification Statement: I certify that [facility] care is medically necessary on a continuing basis for any of the conditions for which she/he is receiving care during hospitalization. Notify PCP of admission and forward orders to primary provider for signature. Other Notification Orders: Call PCP immediately if patient develops dyspnea, chest pain/tightness or edema. Additional Bowel Program Orders: If no BM after 2 days, nurse may give M.O.M. 30ml PO PRN and/or ducolax Supp [address] and/or TASHA 250mg P.O., and/or senna 1-2 tabs PO. On day 3 nurse may give repeat above order until residents constipation is resolved. Treatments & Other Orders: followup with hospice care team for hospice care Medication Orders: PLEASE REFER TO THE DISCHARGE MEDICATION LIST. Insulin Orders?: No - Medications New Prescriptions: LORazepam [Ativan] 0.5 mg PO Q6H PRN #15 tablet PRN Reason: Anxiety Morphine Sulfate [Morphine Sulf Oral (Roxanol)] 5 mg PO Q2H PRN #30 ml PRN Reason: Pain/Dyspnea - Therapies | Activity Additional Instructions: followup with hospice team for hospice care"
--- NOTE | 2020-01-09 11:32 | DISCHARGE SUMMARY ---
"Discharge Summary Admit Date: 01/02/20 Discharge Date: 01/09/20 Discharging Provider: Jeremy Russ Primary Care Provider: Angelica Cain Condition at Discharge: Stable Discharge Disposition: 50 Hospice/Home DC/Xfer Discharge Facility Name: [facility] - DIAGNOSES Discharge Diagnoses with Status of Each Condition: (1) Hypotension pt was admitted at [facility]. Patient Cannot remain her blood pressure in the hospital course as well. Her blood pressure continue running down. Patient was continuing to be treated intravenous IV fluids resuscitation by different providers, and Midodrine. Patient is a DNR and the comfortable measure. Exactly etiology is unknown. It is likely more factors combination. Patient has pulmonary hypertension with right-sided heart failure, liver failure, renal failure. CT of the abdomen and pelvis show Markedly thickened cecum an ascending colon with inflammatory changes, suggestion of infectious colitis and potent ially diverticulitis. a malignancy was not excluded. GI surgeon was consulted,Defer endscopic evaluation at this time. CEA tumor marker is significantly elevated at 15. Patient's family choose comfortable measure only. (2)hypoalbuminemia Patient has significantly hypoALBUMINEMIA. patient was given albumin but the effect was limited. pt continue to have significant anasarca (3)liver failure Patient continue to have nausea and vomiting from last years 2018 per pt's daughter report. Patient continue to have elevated liver enzyme, elevated total bili and alkaline phosphatase. MRCP and US of upper GI were unremarkable for acute finding. CAT scan of the abdomen was unremarkabe in hepatic area. Patient Has been living at [facility] without travel. Patient has no history of alcohol abusive per patient's daughter report. it is unlikely autoimmune cause. Exactly etiology is unclear. (4)oliguria Patient Continue to have oliguria in the last couple days. It is likely from patient have poor perfusion And hypotension. (5) JOSÉ MIGUEL (acute kidney injury) Patient Developed acute kidney injury in the hospital. Patient was not responsive well to the intravenous IV fluids and perfusion. Ultrasound did not show obstruction, and unremarkable. (6)anasarca Patient present Anasarca in 4 extremity at the admission. Patient continue to have anasarca in hospital course (7) E. coli UTI Patient had recurrent E. coli UTI in hospital. Patient was treated antibiotics Rocephin in the hospital according to sensitivity study. But the patient WBC continue went up. (8) Diverticulitis pt was treated with Rocephin and Flagyl. (9) Colitis pt was treated with Rocephin and Flagyl. (10) GI bleed Resolved (11) Anemia Stable,GI bleeding was resolved (12)anorexia Patient Has very poor appetite and decline eating.Local Operator was consulted. (13)pulmonary hypertension with right side heart failure Echo report patient has pulmonary hypertension with 64mmHg and right side heart failure (14)comfortable measure Patient's daughter, she is the POA, she request comfortable management. - HPI History of Present Illness: This is a 83-year-old female with a PMH significant for HTN, HLD, GERD, chronic vision loss, angia, osteoarthritis, hx of DVT/PE with eliquis, pulmonary hypertension, who present ER for bloody stool. She lives at [facility]. pt is some confusion and can only provide limited history. Pt report she has had multiple bloody stools. She report she did feel some lower abdominal discomfort. she Denies dizziness or chest pain, fever, chill or shortness of breath. In routine lab test, patient had a hemoglobin 9.8 today patient has 12.1 in the previous admission about one month ago. Patient also has elevated WBC 14.4, total bili 2.9, elevated alkaline phosphatase. CAT scan of abdomen show marketed thickened cecum and ascending colon with adjacent inflammatory changes and fluid. 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 Colonoscopy is recommended further to exclude malignancy process. Surgeon was notified in the ER. Patient has a PLOST which show she is full code. - CONSULTS | PROCEDURES Consultations: Teodoro Mendoza Procedures: no procedure done - HOSPITAL COURSE Hospital Course: Patient was admitted for GI bleeding and hypotension. GI surgeon was consulted for GI bleeding. CT of the abdomen and pelvis show Markedly thickened cecum an ascending colon with inflammatory changes, suggestion of infectious colitis and potentially diverticulitis. a malignancy was not excluded. GI surgeon was consulted for GI bleed,Defer endscopic evaluation at this time. Finally patient GI bleeding was stopped by her own. Patient was treated with antibiotics Cipro and Flagyl initially for colitis and potential diverticulitis. Lately patient was found to have UTI, according to sensitivity study antibiotics changed to Rocephin and Flagyl. Unfortunately patient is poor response to antibiotics, patient's WBC continue running up. Patient was given intravenous IV fluids also patient was given Midodrine for remaining blood pressure. Unfortunately patient failed to remain blood pressure. Also patient develop renal failure and oliguria. Patient also remain elevated liver enzyme, hypoabluminemia and anasarca. Patient also remain poor appetite and develop anorexia. we consulted with palliative care, and the patient's daughter FLORENCIO, she request pt for c omfortable management only, and request discharged to [facility] for hospice care. - ALLERGIES Allergies/Adverse Reactions: Allergies Allergy/AdvReac Type Severity Reaction Status Date / Time fexofenadine Allergy Unknown Verified 01/02/20 13:35 - MEDICATIONS Home Medications: Ambulatory Orders Medication Instructions Recorded Confirmed Acetaminophen 500 mg Q8HR PRN 09/12/19 01/02/20 Apixaban [Eliquis] 5 mg PO BID 09/12/19 01/02/20 Famotidine 20 mg PO BID 09/12/19 01/02/20 Losartan Potassium 25 mg PO DAILY 09/12/19 01/02/20 Ondansetron HCl [Zofran] 4 mg PO Q6HR PRN 09/12/19 01/02/20 Simvastatin [Zocor] 40 mg PO DAILY 09/12/19 01/02/20 traMADol [Ultram] 50 mg PO Q6HR PRN 09/12/19 01/02/20 Albuterol Sulf [Ventolin Hfa 2 puffs PO Q4H PRN 01/02/20 01/02/20 Inhaler] Baclofen 5 mg PO BID 01/02/20 01/02/20 Ferrous Gluconate 240 mg PO DAILY 01/02/20 01/02/20 L.acid/L.casei/B.bif/B.magan/Fos 1 cap PO BID 01/02/20 01/02/20 [Probiotic Blend Capsule] Meclizine [Antivert] 12.5 mg PO BID 01/02/20 01/02/20 Senna [Senokot] 17.2 mg PO DAILY 01/02/20 01/02/20 carvediloL [Coreg] 3.125 mg PO DAILY 01/02/20 01/02/20 LORazepam [Ativan] 0.5 mg PO Q6H PRN #15 tablet 01/09/20 Morphine Sulfate [Morphine Sulf 5 mg PO Q2H PRN #30 ml 01/09/20 Oral (Roxanol)] - PHYSICAL EXAM AT DISCHARGE General Appearance: positive: No acute distress, Lethargic Eyes Bilateral: positive: No lid inflammation ENT: positive: No signs of dehydration Neck: positive: Nml inspection, Thyroid nml, Trachea midline. negative: Thyromegaly Respiratory: positive: Chest non-tender, No respiratory distress Cardiovascular: positive: Irregularly irregular. negative: Tachycardia, Bradycardia, Systolic murmur Peripheral Pulses: positive: 1+ Abdomen: positive: Non-tender. negative: Tenderness, Guarding Skin: positive: No rash, Pallor Extremities: negative: Calf tenderness Neurologic/Psychiatric: negative: Facial droop - LABS Result Diagrams: 01/07/20 05:07 01/07/20 05:07 - SEPSIS Current Stage of Sepsis: Sepsis Possible source of Sepsis: GI tract/intra-abdominal Sepsis Criteria: MAP less than 65 mmHg - FOLLOW UP Follow Up: followup with hospice care - TIME SPENT Time Spent in Discharge (Minutes): 30"
== END 2020-01-09 13:21 | disposition hospice, home (50) | DRG 872 ==
LOC: EDUNIT# → ED 12:39 → MS2 15:10
PROVIDERS: ADMIT Nurse Practitioner Gerontology; ATTEND Nurse Practitioner Gerontology
PROC: 05HY33Z Insertion of Infusion Device into Upper Vein, Percutaneous Approach (ICD-10-PCS; principal; 2020-01-02)
PROC: 0T9B70Z Drainage of Bladder with Drainage Device, Via Natural or Artificial Opening (ICD-10-PCS; 2020-01-05)
PROC: 02HV33Z Insertion of Infusion Device into Superior Vena Cava, Percutaneous Approach (ICD-10-PCS; 2020-01-06)
DX: A41.9 Sepsis, unspecified organism (principal); K92.1 Melena; N17.9 Acute kidney failure, unspecified; R10.30 Lower abdominal pain, unspecified; K57.32 Diverticulitis of large intestine without perforation or abscess without bleeding; K52.9 Noninfective gastroenteritis and colitis, unspecified; K72.90 Hepatic failure, unspecified without coma; I50.9 Heart failure, unspecified; Z11.59 Encounter for screening for other viral diseases; K21.9 Gastro-esophageal reflux disease without esophagitis; I27.20 Pulmonary hypertension, unspecified; I11.0 Hypertensive heart disease with heart failure; I50.810 Right heart failure, unspecified; I95.9 Hypotension, unspecified; E88.09 Other disorders of plasma-protein metabolism, not elsewhere classified; E86.9 Volume depletion, unspecified; E86.0 Dehydration; B96.20 Unspecified Escherichia coli [E. coli] as the cause of diseases classified elsewhere; D64.9 Anemia, unspecified; F03.90 Unspecified dementia, unspecified severity, without behavioral disturbance, psychotic disturbance, mood disturbance, and anxiety; R63.0 Anorexia; R62.7 Adult failure to thrive; R11.0 Nausea; R41.0 Disorientation, unspecified; R21 Rash and other nonspecific skin eruption; N30.90 Cystitis, unspecified without hematuria; Z51.5 Encounter for palliative care; Z66 Do not resuscitate; Z68.24 Body mass index [BMI] 24.0-24.9, adult; Z74.01 Bed confinement status; Z79.01 Long term (current) use of anticoagulants; Z79.899 Other long term (current) drug therapy; Z86.711 Personal history of pulmonary embolism; Z86.718 Personal history of other venous thrombosis and embolism; Z99.3 Dependence on wheelchair
CPT/HCPCS: 36415; 36573; 71045; 74177; 74181; 76705; 76770; 80053; 81001; 81599; 82272; 82378; 82533; 82607; 82728; 83540; 83605; 83615; 83690; 83735; 84100; 84443; 84466; 84484; 85014; 85018; 85025; 85045; 85610; 85730; 86301; 86850; 86900; 86901; 87040; 87086; 87181; 87493; 93306; 96361; 96365; 99285; A6250; A9270; P9047; Q9967; U0004; 80048; 81003; 87045; 87046

== ENCOUNTER 2020-01-09 13:18 | Outpatient (CLI) | payer MEDICARE, OTHER | END 2020-01-09 13:19 | disposition hospice, home (50) | LOC: EMS 13:18 | PROVIDERS: ATTEND Surgery | DX: R53.1 Weakness (principal); R41.82 Altered mental status, unspecified | CPT/HCPCS: A0425; A0428 ==